=== PATIENT | female | born 1985 ===

== ENCOUNTER 2024-12-10 17:06 | Inpatient (IN) | payer MEDICAID, SELFPAY ==
--- NOTE | ~2024-12-10 | FL_ITS ---
EXAMINATION: FL GUIDANCE ONLY HISTORY: ERCP COMPARISON: Correlation is made with an MRCP dated 12/11/2024. TECHNIQUE: Fluoroscopy time: 49.5 seconds. Cumulative Dose: 21.430 mGy. DAP: 9.3218 mGym2 Images: 6. FINDINGS: Images demonstrate opacification of the common bile duct with a wire in place. No definite filling defects are identified on these images. The final film demonstrates contrast in the duodenum. FL/FL guidance in OR IMPRESSION: Fluoroscopy during procedure. Please see procedure report for additional information. Electronically signed by: Andre Dennis MD 12/15/2024 07:03 AM EDT
--- NOTE | ~2024-12-10 | XR_ITS ---
EXAMINATION: XR CHEST 1 VIEW HISTORY: low O2 sats post op COMPARISON: There are no prior studies available for comparison. FINDINGS: A single AP portable view of the chest performed at 12:29 PM is submitted. Lung volumes are markedly low. There are diffuse opacities in both lung zones which may be related to hypoventilation. Atelectasis or pneumonia is not excluded. There is no pneumothorax. The heart is normal in size in technique and degree of inspiration. The bones are intact. XR/XR chest 1V IMPRESSION: Extremely low lung volumes. Diffuse opacities in both lung zones may represent atelectasis or pneumonia. Evaluation is extremely limited. Electronically signed by: Andre Dennis MD 12/15/2024 12:49 PM EDT
--- NOTE | ~2024-12-10 | MR_ITS ---
CLINICAL HISTORY: elevated bilirubin MR abdomen without contrast MR MRCP without contrast Comparison: None available Findings: There are at least 3 calculi within the common bile duct. From proximal to distal these measure 5, 9 and 11 mm in size respectively. There is severe dilatation of the common bile duct which measures up to 17 mm. There is moderate dilatation of the intrahepatic biliary tree. There are numerous gallstones within the gallbladder and there are 2 stones within the cystic duct, the larger measuring 7 mm in size. There is borderline gallbladder wall thickening and mild edema of the mesentery adjacent to the gallbladder. There is edema of the mesentery adjacent to the pancreas. No associated fluid collection. Borderline dilatation of the pancreatic duct. Unremarkable liver, spleen and adrenal glands. Grossly unremarkable bowel. No suspicious bone lesion. Impression: 1. Acute cholecystitis. 2. Acute pancreatitis. 3. Choledocholithiasis. This document has been electronically signed by: Kayla Mckeon MD on 12/11/2024 16:50:21
--- NOTE | ~2024-12-10 | US_ITS ---
CLINICAL HISTORY: abd pain, elevated LFTs US abdomen limited Comparison: None provided Findings: The visualized pancreas is normal. The aorta and inferior vena cava are normal caliber. The liver is normal in size and echotexture. There is no intrahepatic bile duct dilatation. The common duct is 13 mm in diameter. There is a focal echogenic structure in the distal common duct, possible choledocholithiasis. There are multiple gallstones. The gallbladder is otherwise normal. There is no sonographic Barrett sign. The main portal vein is antegrade. The right kidney is 11.6 cm in length. No ascites. IMPRESSION: Cholelithiasis with extrahepatic biliary tract dilatation and possible choledocholithiasis. Appropriate follow-up recommended This document has been electronically signed by: William Vasquez MD on 12/10/2024 20:27:07
[2024-12-10 17:30] VITALS: BP 122/66; PULSE 109; RESP 18; TEMP 37.3; O2SAT 99; BMI 33.7
--- NOTE | 2024-12-10 17:32 | ED.ABDPAIN ---
HPI - Abdominal Pain General Chief Complaint: Abdominal Pain Stated Complaint: abd pain Time Seen by Provider: 12/10/24 19:47 Source: patient Mode of arrival: ambulatory Limitations: no limitations History of Present Illness ED Provider: Addie Farmer NP HPI narrative: Patient is a 39-year-old female who presents emergency department for evaluation. With the past 3 days she has been having pain to her epigastrium and right upper quadrant. Intermittent in nature. Three days ago she was experiencing vomiting but since then has only had nausea. Reports that today her pain is actually slightly improved from its onset but still is pretty significant. She denies associated fevers or chills. Denies history of prior gallbladder problems. Has no associated chest pain or shortness of breath. No lower abdominal pain constipation diarrhea genitourinary symptoms, pelvic pain or abnormal vaginal discharge/bleeding. LMP 11/19/2024, denies overt concern for . No use of contraception. Related Data Home Medications ?Medication ?Instructions ?Recorded ?Confirmed No Known Home Meds 12/10/24 12/10/24 Allergies Allergy/AdvReac Type Severity Reaction Status Date / Time No Known Allergies Allergy Verified 12/10/24 17:34 Review of Systems Review of Systems Yes all other systems are reviewed and are negative [facility] Past Medical History Attestation statement: The following information was validated with the patient. Source: old records reviewed Medical History Obesity Surgical History History of Social History Social History Patient Tobacco Use Status: Never used Tobacco Smoked in Last 30 Days: No Use of substances other than those prescribed or required for medical reasons: No Advance Directives: No Advance Directives Information Provided: No Do you have a plan to hurt others: No Plan Nutrition Risks: No Nutritional Risk Patient : Yes (HCT is 4, may be indicative of very early repeat hCG in the a.m.) Physical Exam ED Vital Signs: Vital Signs - 24 hr 12/10/24 17:30 12/10/24 20:00 Temperature 99.1 F 98.4 F Pulse Rate 109 H 60 Respiratory Rate 18 13 Blood Pressure 122/66 136/74 Pulse Oximetry 99 100 Oxygen Delivery Method Room Air Room Air BMI result Body Mass Index 33.7 Appearance: Alert.?Oriented to person, place and time. No acute distress.?Normal affect. Eyes: Pupils equal, round and reactive to light.? ENT: Pharynx normal.?? Neck: Normal inspection.? Neck supple.?? CVS: Heart sounds normal. Normal heart rate and rhythm.? Pulses normal.?? Respiratory: No respiratory distress.? Lung sounds clear to auscultation bilaterally?? Abdomen: Soft with right upper quadrant and epigastric tenderness upon palpation. Negative Barrett's sign.no CVAT. Normoactive bowel sounds. ? Skin: Skin warm and dry.? Normal skin color.? Extremities: No lower extremity edema.? Neuro: Moves all extremities spontaneously. Sensation intact bilaterally. Ambulates with normal steady gait. Course Course Course Narrative: This is an RME: Additional HPI, ROS, PE not included below will be deferred to primary provider. RME assessment and note performed by: Juliette Herrera PA-C This is a [id number]-female who presents to the ER with complaints of mid abdominal pain x 3 days. Reporting nausea, vomiting, dark urine and urgency. Abdomen is soft, nontender. Plan: Labs, UA, further ER eval Medical Decision Making Medical Decision Making MDM Narrative: Patient is a 39-year-old female with no reported past medical history who presents emergency department for evaluation of abdominal pain and nausea as per HPI. She had a workup obtained prior to my assumption of care, CBC is without leukocytosis, has a microcytic anemia that does not meet transfusion criteria, no prior available for comparison, no thrombocytopenia. No significant electrolyte derangement. No MINH. Has notable transaminitis with T bili 4.1 direct bili 3.1, AST/ALT 118/208 and lipase of 1088. Her hCG has resulted at 4, below criteria for estimated gestation of 3-4 weeks. I did discuss this with the patient in the potential for a very early . Urinalysis revealing microscopic hematuria no evidence of infection but she states that she is not currently having any menstrual bleeding. On examination she has tenderness of the right upper quadrant and epigastrium. Negative Barrett sign. Nontoxic in appearance afebrile no tachycardia no hypotension. Had ultrasound imaging of the abdomen obtained prior to my assumption of care revealing cholelithiasis with extrahepatic biliary dilation, mild intrahepatic ductal dilation possible choledocholithiasis. I did discuss this with General surgery Frank CELESTIN who advises consulting hospitalist for medicine admission. I spoke with hospitalist Dr. Barba, plan for admission Differential Diagnosis Differential Diagnoses: The differential diagnosis associated with the presentation includes (Gastritis, cholecystitis, cholelithiasis, choledocholithiasis, lower suspicion for acute cholangitis given absence of fever and jaundice, GERD, pyelonephritis, UTI) Admission/Observation Consideration of admission/observation: Escalation of care including admission/observation considered Consult Healthcare Provider Management of the patient was discussed with: Hospitalist (See narrative above) and Hand Packer/Packager (See narrative above) Lab Data MDM Lab Attestation statement: I reviewed the patient's lab results. (See narrative above) 12/10/24 17:46 12/10/24 17:46 Labs: Lab Results 12/10/24 Range/Units 17:46 WBC 9.1 (4.8-10.8) X10*3/uL RBC 3.86 L (4.20-5.50) X10*6/uL Hgb 8.3 L (12.0-16.0) g/dl Hct 27.6 L (37.0-47.0) % MCV 71.5 L (80.0-98.0) fL MCH 21.5 L (27.0-33.0) pg MCHC 30.1 L (31.0-35.0) g/dl RDW 18.2 H (11.0-16.0) % Plt Count 394 (160-400) X10*3/uL MPV 9.2 L (9.4-12.3) fL Immature Gran % (Auto) 0.3 (0.0-0.4) % Neut % (Auto) 77.3 H (45-73) % Lymph % (Auto) 12.5 L (20-40) % [place] % (Auto) 8.5 (2-11) % Eos % (Auto) 1.1 (0-4) % Baso % (Auto) 0.3 (0-2) % Lymph # (Auto) 1.1 L (1.2-4.9) X10*3/uL [place] # (Auto) 0.8 (0.1-1.2) X10*3/uL Eos # (Auto) 0.1 (0.0-0.4) X10*3/uL Baso # (Auto) 0.0 (0.0-0.2) X10*3/uL Abs Immat Gran (auto) 0.03 (0.00-0.03) X10*3/uL Absolute Neuts (auto) 7.0 (2.0-8.3) x10*3/uL Absolute Nucleated RBC 0.000 (0.0-0.012) X10*3/uL Nucleated RBC % (auto) 0.0 (0.0-0.2) /100WBC Sodium 137 (135-145) mmol/L Potassium 3.4 (3.3-5.1) mmol/L Chloride 108 (96-108) mmol/L Carbon Dioxide 21 L (22-29) mmol/L Anion Gap 11 L (12-20) BUN 7 L (9-16) mg/dL Creatinine 0.61 (0.5-1.4) mg/dL Estim Creat Clear Calc 127.5 Estimated GFR > 60 Random Glucose 79 (60-115) mg/dL Calcium 8.9 (8.4-10.2) mg/dL Magnesium 2.0 (1.6-2.6) mg/dL Iron 17 L (30-160) mcg/dL TIBC 336 (228-428) mcg/dL % Saturation 5 L (15-50) % Unsat Iron Binding 319 ug/dL Total Bilirubin 4.1 H (0.0-1.0) mg/dL Direct Bilirubin 3.1 H (0.0-0.5) mg/dL AST 118 H (5-31) U/L ALT 208 H (0-31) U/L Alkaline Phosphatase 271 H (39-117) U/L Total Protein 8.0 (6.5-8.0) g/dL Albumin 4.3 (3.5-5.0) g/dL Lipase 1088 H (8-78) U/L Beta HCG, Quant 4 mIU/mL Urine Color Dark Yellow Urine Appearance Clear Urine pH 5.5 (5.0-9.0) Ur Specific [place] 1.010 (1.005-1.025) Urine Protein Negative (Neg-Trace) mg/dL Urine Glucose (UA) Negative (Negative) mg/dL Urine Ketones 40 (Negative) mg/dL Urine Blood Small (1+) H (Negative) Urine Nitrite Negative (Negative) Ur Leukocyte Esterase Negative (Negative) Urine RBC 3-5 H (0-2) /HPF Urine WBC 0-5 (0-5) /HPF Ur Squamous Epith Cells 0-2 (0-2) /HPF Urine Bacteria None Seen (None Seen) Hyaline Casts 0-2 (0-2) /LPF Independent Interpretation I performed an independent interpretation of an: Ultrasound Radiology Impression Discussion of test interpretation with radiology: I have reviewed the radiologist's reading. Radiologist Impression: US abdomen limited Comparison: None provided Findings: The visualized pancreas is normal. The aorta and inferior vena cava are normal caliber. The liver is normal in size and echotexture. There is no intrahepatic bile duct dilatation. The common duct is 13 mm in diameter. There is a focal echogenic structure in the distal common duct, possible choledocholithiasis. There are multiple gallstones. The gallbladder is otherwise normal. There is no sonographic Barrett sign. The main portal vein is antegrade. The right kidney is 11.6 cm in length. No ascites. IMPRESSION: Cholelithiasis with extrahepatic biliary tract dilatation and possible choledocholithiasis. Appropriate follow-up recommended Medications Administered Generic Name Dose Route Start Last Admin Trade Name Freq PRN Reason Stop Dose Admin Hydromorphone HCl 0.5 mg 12/10/24 21:46 12/10/24 22:38 Hydromorphone Hcl 0.5 Mg/0.5 Ml Syringe IVPUSH 0.5 mg Q4H PRN Administration Pain, Moderate(Pain Scale 4-6) Protocol Piperacillin Sod/Tazobactam 100 mls @ 200 mls/hr 12/10/24 23:00 12/10/24 23:09 Sod 4.5 gm/ Sodium Chloride IV Infused Q6H JAY Infusion Dextrose/Sodium Chloride 1,000 mls @ 100 mls/hr 12/10/24 22:45 12/10/24 23:09 D5ns IVCONT 100 mls/hr .Q10H JAY Administration Ondansetron HCl 4 mg 12/10/24 22:09 12/10/24 22:38 Ondansetron Hcl 4 Mg/2 Ml Vial IVPUSH 4 mg Q6H PRN Administration Nausea and Vomiting Pantoprazole Sodium 40 mg 12/10/24 22:00 12/10/24 22:37 Pantoprazole Sodium 40 Mg/10 Ml Vial IVPUSH 40 mg BID@0630,1630 JAY Administration Sodium Chloride 3 ml 12/11/24 00:00 12/10/24 23:05 0.9 % Sodium Chloride Flush 3 Ml Syringe IVFLUSH Not Given QSHIFT [facility] Discharge Plan Discharge Clinical Impression: Transaminitis Cholelithiasis Qualifiers: Cholelithiasis location: bile duct Cholecystitis presence: without cholecystitis Biliary obstruction: with biliary obstruction Qualified Code(s): K80.51 - Calculus of bile duct without cholangitis or cholecystitis with obstruction Patient Disposition: Admitted As Inpatient
--- NOTE | 2024-12-10 17:35 | ECG_ITS ---
Test Reason : abd pain Blood Pressure : */* mmHG Vent. Rate : 73 BPM Atrial Rate : 73 BPM P-R Int : 144 ms QRS Dur : 76 ms QT Int : 362 ms P-R-T Axes : 44 18 26 degrees QTcB Int : 398 ms Normal sinus rhythm Normal ECG No previous ECGs available Referred By: Juliette Herrera Electronically Signed By: STEVEN GARCIA
[2024-12-10 17:57] LABS: MANUAL DIFF FLAG NO
[2024-12-10 18:00] LABS: Hematocrit 27.6 % (37.0-47.0); Hemoglobin 8.3 g/dl (12.0-16.0); Imm Gran Abs Auto 0.03 X10*3/uL (0.00-0.03); Imm Gran Pct Auto 0.3 % (0.0-0.4); Lymphocytes Absolute Auto 1.1 X10*3/uL (1.2-4.9); Mean Corpuscular HGB Conc 30.1 g/dl (31.0-35.0); Mean Corpuscular Hemoglobin 21.5 pg (27.0-33.0); Mean Corpuscular Volume 71.5 fL (80.0-98.0); NRBC Abs Auto 0.000 X10*3/uL (0.0-0.012); NRBC Pct Auto 0.0 /100WBC (0.0-0.2); Platelet Count 394 X10*3/uL (160-400); Red Blood Count 3.86 X10*6/uL (4.20-5.50); White Blood Count 9.1 X10*3/uL (4.8-10.8)
[2024-12-10 18:02] LABS: Appearance Urine Clear; Glucose Urine UA Negative (Negative); PH 5.5 (5.0-9.0); Specific Gravity - Urine 1.010 (1.005-1.025); UMIC TRIGGER UACC YES
[2024-12-10 18:22] LABS: Alanine Aminotransferase 208 U/L (0-31); Albumin Level 4.3 g/dL (3.5-5.0); Alkaline Phosphatase 271 U/L (39-117); Anion Gap 11 (12-20); Aspartate Amino Transferase 118 U/L (5-31); Blood Urea Nitrogen 7 mg/dL (9-16); Calcium 8.9 mg/dL (8.4-10.2); Carbon Dioxide 21 mmol/L (22-29); Chloride 108 mmol/L (96-108); Creatinine Clr Calc Pharmacy 127.5; Estimated Glomerular Filt Rate > 60; Magnesium 2.0 mg/dL (1.6-2.6); Potassium 3.4 mmol/L (3.3-5.1); Sodium 137 mmol/L (135-145); Total Protein 8.0 g/dL (6.5-8.0)
[2024-12-10 18:36] LABS: Lipase 1088 U/L (8-78)
[2024-12-10 20:00] VITALS: BP 136/74; PULSE 60; RESP 13; TEMP 36.9; O2SAT 100
--- NOTE | 2024-12-10 21:44 | PM.IMHP ---
History of Present Illness Date of Service: 12/10/24 Attending physician on admission: Nannette Barba Chief Complaint: abdominal pain Patient is a 39-year-old female Finnish speaking with past medical history only of G3, P3 X3 presents to the ED with complaints of upper Right and mid epigastric pain for the last 4 days. Pt has had nausea but no vomiting and denies Chest pain and SOB at rest or with exertion. Patient states she has had 2 prior attacks over the last month. Patient does not currently have a PCP. Patient denies history of tobacco use, marijuana use, illicit drug use and regular alcohol use. Patient only drinks alcohol occasionally. Workup initiated in the emergency department noted H&H of 8.3 and 27.6, no bandemia and no leukocytosis, non-anion gap metabolic acidosis, elevated T bili and direct bilirubin with transaminitis and elevated alk-phos of 271. Patient's lipase was 1088. Abdominal ultrasound indicated cholelithiasis with possible choledocholithiasis and multiple gallstones. No pancreatic involvement identified. ED provider reviewed case with General surgery and general surgery asked for medicine to admit. Patient is seen and examined for admission and patient is currently having 5 to 6/10 right upper quadrant and mid epigastric pain with mild nausea. Dilaudid ordered p.r.n. to help with pain. Zofran ordered to help with nausea. Patient's beta hCG was 4. Patient states her LMP was 11/19/2024. Patient normally has regular menstrual cycles. Patient is not taking any control and does not have an IUD or nexplanon in place. Patient has been sexually active since the end of her menstrual cycle. The potential for in its earliest stages is possible. Unable to order MRCP at this time due to possible 1st trimester . Will repeat hCG in the a.m.. If number continues to rise, should be suspected. No plans for surgical intervention overnight. Repeat labs in the a.m.. GI consultation also placed. Zosyn started. Patient will continue IV fluids with dextrose as BG 79 mg/dL. Dilaudid for pain and antiemetics ordered. UA negative for UTI. Stool for occult ordered noting how low patient's H&H is. Iron level is low at 7. Will wait for GI to assessment and patient may benefit from Venofer initially. Case management ordered to help patient find PCP. Review of Systems Review of Systems: Patient currently describing 5 to 6/10 right upper quadrant and mid epigastric pain with mild nausea. Patient denies any reflux. Patient denies any recent changes with her stools including blood in her stool. Patient denies any chest pain or shortness of breath at rest or with exertion. Patient denies any diarrhea or constipation issues. Yes all other systems are reviewed and are negative [facility] Medical History Obesity Cognitive capacity: Alert and orientated x3 Functional capacity: independent ambulation Patient : Yes (HCT is 4, may be indicative of very early repeat hCG in the a.m.) Surgical History History of Social History Smoked in Last 30 Days: No Use of substances other than those prescribed or required for medical reasons: No Advance Directives: No Advance Directives Information Provided: No Do you have a plan to hurt others: No Plan Patient : Yes (HCT is 4, may be indicative of very early repeat hCG in the a.m.) Ebola Risk: Travel/Contact With Anyone From Affected Area/s: No Has Patient Experienced Ebola Symptoms: No Meds Allergies Allergy/AdvReac Type Severity Reaction Status Date / Time No Known Allergies Allergy Verified 12/10/24 17:34 Home Medications ?Medication ?Instructions ?Recorded ?Confirmed ?Last Taken ?Type No Known Home Meds 12/10/24 12/10/24 Unknown History Physical Exam Vital Signs and Narrative: Vital Signs: Last Vital Signs Temp 98.4 F 12/10/24 20:00 Pulse 60 12/10/24 20:00 Resp 13 12/10/24 20:00 BP 136/74 12/10/24 20:00 Pulse Ox 100 12/10/24 20:00 O2 Del Method Room Air 12/10/24 20:00 BMI result Body Mass Index 33.7 Alert and orientated X3, able to give good history. Speaks chilean. Deferred cream tester. Neuro: CN II-X11 intact, no deficits, visual acuity intact EYES: PERRLA, EOM intact, sclerae nonicteric, conjunctiva pale ENT: hearing intact, no issues with swallowing, uvula midline, lips moist, nares patent no epistaxis Cardiac: S1 S2 RRR, no murmur, no JVD, no edema in Lower ext Pulmonary: lungs clear to auscultation B Abdominal: BS active in all 4 quadrants, no guarding, moderate tenderness right upper quadrant and midepigastric area, rebounding negative, abdomen soft MSK: strength 5/5 upper and lower extremities : no CVA tenderness no bladder distension Extremities: no edema in lower extremities, PT and DP pulses palpable +2 Psych: mood stable, judgement and insight good Skin: , intact no jaundice Results Labs 12/10/24 17:46 12/10/24 17:46 Labs: Laboratory Results - last 24 hr 12/10/24 17:46 MCV 71.5 L MCH 21.5 L MCHC 30.1 L RDW 18.2 H Plt Count 394 MPV 9.2 L Immature Gran % (Auto) 0.3 Neut % (Auto) 77.3 H Lymph % (Auto) 12.5 L [place] % (Auto) 8.5 Eos % (Auto) 1.1 Baso % (Auto) 0.3 Lymph # (Auto) 1.1 L [place] # (Auto) 0.8 Eos # (Auto) 0.1 Baso # (Auto) 0.0 Abs Immat Gran (auto) 0.03 Absolute Neuts (auto) 7.0 Absolute Nucleated RBC 0.000 Nucleated RBC % (auto) 0.0 Anion Gap 11 L Estim Creat Clear Calc 127.5 Estimated GFR > 60 Random Glucose 79 Calcium 8.9 Magnesium 2.0 Total Bilirubin 4.1 H Direct Bilirubin 3.1 H AST 118 H ALT 208 H Alkaline Phosphatase 271 H Total Protein 8.0 Albumin 4.3 Lipase 1088 H Beta HCG, Quant 4 Urine Color Dark Yellow Urine Appearance Clear Urine pH 5.5 Ur Specific [place] 1.010 Urine Protein Negative Urine Glucose (UA) Negative Urine Ketones 40 Urine Blood Small (1+) H Urine Nitrite Negative Ur Leukocyte Esterase Negative Urine RBC 3-5 H Urine WBC 0-5 Ur Squamous Epith Cells 0-2 Urine Bacteria None Seen Hyaline Casts 0-2 ECG Attestation: I personally reviewed and interpreted this ECG as follows: (Normal sinus rhythm, normal QTC) Prior ECG tracings: available for review Imaging Radiologist's Impressions: Ultrasound abdomen Findings: The visualized pancreas is normal. The aorta and inferior vena cava are normal caliber. The liver is normal in size and echotexture. There is no intrahepatic bile duct dilatation. The common duct is 13 mm in diameter. There is a focal echogenic structure in the distal common duct, possible choledocholithiasis. There are multiple gallstones. The gallbladder is otherwise normal. There is no sonographic Barrett sign. The main portal vein is antegrade. The right kidney is 11.6 cm in length. No ascites. IMPRESSION: Cholelithiasis with extrahepatic biliary tract dilatation and possible choledocholithiasis. Appropriate follow-up recommended Assessment and Plan (1) Cholelithiasis: Qualifiers: Biliary obstruction: with biliary obstruction Cholecystitis presence: without cholecystitis Cholelithiasis location: bile duct Qualified Code(s): K80.51 - Calculus of bile duct without cholangitis or cholecystitis with obstruction Status: Acute Plan Patient is a 39-year-old female Finnish speaking with past medical history only of G3, P3 X3 is being admitted for cholelithiasis with suspicion for choledocholithiasis, general surgery asked that Medicine admit this patient. It is possible that patient is in the very early stages of based on patient's current hCG of 4. Patient denies history of smoking, marijuana use, illicit drug use and only drinks alcohol on rare occasion. Cholelithiasis with possible choledocholithias/ transaminitis, elevated TBILI and DBILI -General surgery consulted, asked for medicine to admit -GI consulted -Unable to order MRCP as there is suspicion for very early , repeating hCG in the a.m. -IV fluids continue and dextrose added, lipase is elevated, pancreas stable on ultrasound, glucose 79 -Dilaudid IV p.r.n. for pain -NPO -Repeat labs in the a.m., Lipiud panel added -Patient is started on Zosyn 4.5 G Q6H -Patient does not meet the criteria for sepsis at this time -Lactate 0.9, no leukocytosis, low-grade temp of 99 degrees on arrival now 98.6 -Blood cultures were not ordered in the ED and antibiotics were already started -UA negative for UTI Non-anion gap metabolic acidosis -IV fluids continue -No indication for bicarb at this time -Monitor labs Anemia -H&H low on admission, 8.3 and 27.6, iron also low at 7, may need to consider IV Venofer -Repeat CBC in the a.m., type and screen added in case needed -Hemodynamics stable -Stool for occult ordered -PPI ordered Beta HCG 4 -It is possible patient may be in the very early stages of -Repeat hCG in the a.m., if number continues to rise consider patient is -Unable to order MRCP at this time No primary care provider -Case management requested to review this with patient to find a PCP in the local area DVT prophylaxis: Held in case patient requires surgical intervention in the next 24 hours, review in the a.m. PPI prophylaxis: Protonix ordered No med rec indicated as patient does not currently take any prescription meds or [id number] meds including vitamins or homeopathics Full code status Quality Stroke Does the patient have a stroke diagnosis?: No Reason for No Anti-thrombotic by Day Two: Contraindicated VTE Prior VTE?: No VTE Risk Level:: Medical - moderate - high VTE Device Contraindication: N/A - Device Ordered VTE Drug Contraindication: N/A - Med Ordered
[2024-12-10 22:12] VITALS: BP 138/63; PULSE 70; RESP 16; TEMP 37; O2SAT 100
[2024-12-10 22:13] LABS: Iron 17 mcg/dL (30-160); Percent Iron Saturation 5 % (15-50); Total Iron Binding Capacity 336 mcg/dL (228-428); Unsaturated Iron Binding 319 ug/dL
--- NOTE | 2024-12-10 22:32 | PHA.MEDREC ---
Pharmacy Consult ? Medication Reconciliation Pharmacy has completed the medication reconciliation.
[2024-12-11 00:32] VITALS: BP 98/55; PULSE 76; RESP 17; TEMP 36.7; O2SAT 96
[2024-12-11 05:41] VITALS: BP 117/66; PULSE 62; RESP 17; TEMP 36.8; O2SAT 98
--- NOTE | 2024-12-11 05:51 | PM.CNGS ---
History of Present Illness Consult details Consult date: 12/11/24 Requesting physician: Ale Wilkinson Narrative: 39 year old female with no significant PMH who presented to the ED for evaluation for abdominal pain. She reports epigastic/RUQ pain that began 3 days ago. It was intermittent in nature but became more constant and was associated with nausea without vomiting. She endorses yellowing of her eyes, and dark urine. Her skin has been itchy. She reports a similar episode of pain two months ago that resolved on its own after an hour. Due to the severity of pain, she presented to the ED. Work up in the ED included CBC, BMP, LFTs which were significant for total/direct bilirubin of 4.1/3.1, AST/ALT 118/208, lipase 1088. No leukocytosis. HCG 4. LMP 11/19/24. ABD US showed gallstones without gallbladder wall thickening or pericholecystic fluid, and dilated intra and extrahepatic ducts with CBD measuring 13 mm in diameter with a focal echogenic structure in the distal common duct. She reports feeling improved this morning and denies any abd pain. She denies fevers, chills, diarrhea. She has a history of 3 C sections and denies any other abdominal surgery. Review of Systems Constitutional: Constitutional: Denies chills and Denies fever(s) ENT: Denies dizziness Cardiovascular: Cardiovascular: Denies chest pain and Denies dyspnea Respiratory: Respiratory: Denies dyspnea Gastrointestinal: Gastrointestinal: Reports as per HPI Genitourinary: Genitourinary: Denies hematuria and Denies dysuria Integumentary/Breasts: Skin/Breast: Reports as per HPI Neurologic: Denies dizziness [facility] Past Medical History Medical History Obesity Surgical History Surgical History History of Social History Social History Patient Tobacco Use Status: Never used Tobacco Travel History Ebola Risk: Travel/Contact With Anyone From Affected Area/s: No Has Patient Experienced Ebola Symptoms: No Meds Allergies Allergy/AdvReac Type Severity Reaction Status Date / Time No Known Allergies Allergy Verified 12/10/24 17:34 Active Medications: Current Medications Acetaminophen (Acetaminophen 325 Mg Tablet) 650 mg PO Q6H PRN PRN Reason: Pain, Mild 1-3,fever,headache Albuterol/Ipratropium (Albuterol/Iprat 2.5/0.5mg 3 Ml Ampul.Neb) 3 ml INHALE Q4H PRN PRN Reason: Shortness of Breath/Wheezing Calcium Carbonate (Calcium Carbonate 750 Mg Tab.Chew) 750 mg PO Q4H PRN PRN Reason: Heartburn Hydromorphone HCl (Hydromorphone Hcl 0.5 Mg/0.5 Ml Syringe) 0.5 mg IVPUSH Q4H PRN; Protocol PRN Reason: Pain, Moderate(Pain Scale 4-6) Last Admin: 12/10/24 22:38 Dose: 0.5 mg Hydromorphone HCl (Hydromorphone Hcl 1 Mg/Ml Syringe) 1 mg IVPUSH Q4H PRN; Protocol PRN Reason: Pain, Severe (Pain Scale 7-10) Piperacillin Sod/Tazobactam (Sod 4.5 gm/ Sodium Chloride) 100 mls @ 200 mls/hr IV Q6H [facility] Last Admin: 12/11/24 05:49 Dose: 200 mls/hr Dextrose/Sodium Chloride (D5ns) 1,000 mls @ 100 mls/hr IVCONT .Q10H [facility] Last Infusion: 12/11/24 05:49 Dose: 0 mls/hr Magnesium Hydroxide (Milk Of Magnesia 30 Ml Oral.Susp) 30 ml PO DAILY PRN PRN Reason: Constipation Melatonin (Melatonin 3 Mg Tablet) 6 mg PO BEDTIME PRN PRN Reason: Insomnia Ondansetron HCl (Ondansetron Hcl 4 Mg/2 Ml Vial) 4 mg IVPUSH Q6H PRN PRN Reason: Nausea and Vomiting Last Admin: 12/10/24 22:38 Dose: 4 mg Pantoprazole Sodium (Pantoprazole Sodium 40 Mg/10 Ml Vial) 40 mg IVPUSH BID@0630,1630 [facility] Last Admin: 12/11/24 05:51 Dose: 40 mg Senna (Sennosides 8.6 Mg Tablet) 17.2 mg PO BEDTIME [facility] Sodium Chloride (0.9 % Sodium Chloride Flush 3 Ml Syringe) 3 ml IVFLUSH QSHIFT [facility] Last Admin: 12/10/24 23:05 Dose: Not Given Home Medications ?Medication ?Instructions ?Recorded ?Confirmed ?Last Taken ?Type No Known Home Meds 12/10/24 12/10/24 Unknown History Physical Exam Vital Signs: Vital Signs: Last Vital Signs Temp 98.2 F 12/11/24 05:41 Pulse 62 12/11/24 05:41 Resp 17 12/11/24 05:41 BP 117/66 12/11/24 05:41 Pulse Ox 98 12/11/24 05:41 O2 Del Method Room Air 12/11/24 05:41 BMI result Body Mass Index 33.7 Const: Other: tearful on exam General: comfortable, no acute distress and alert Orientation/consciousness: patient oriented x3 Eyes: Sclerae: scleral abnormal (icteric ) Resp: Effort & Inspection: normal respiratory effort GI: Inspection: No distended Palpation (GI): Soft to palpation, Tenderness to palpation present (GI) (mild epigastric and RUQ) Barrett's sign negative, no guarding and not rigid Percussion: Yes normal to percussion Skin: Other: warm and dry Neuro: General: patient oriented x3 and moves all extremities Results Labs 12/11/24 05:32 12/11/24 05:32 Labs: Abnormal lab results 12/10/24 Range/Units 17:46 RBC 3.86 L (4.20-5.50) X10*6/uL Hgb 8.3 L (12.0-16.0) g/dl Hct 27.6 L (37.0-47.0) % MCV 71.5 L (80.0-98.0) fL MCH 21.5 L (27.0-33.0) pg MCHC 30.1 L (31.0-35.0) g/dl RDW 18.2 H (11.0-16.0) % MPV 9.2 L (9.4-12.3) fL Neut % (Auto) 77.3 H (45-73) % Lymph % (Auto) 12.5 L (20-40) % Lymph # (Auto) 1.1 L (1.2-4.9) X10*3/uL Carbon Dioxide 21 L (22-29) mmol/L Anion Gap 11 L (12-20) BUN 7 L (9-16) mg/dL Iron 17 L (30-160) mcg/dL % Saturation 5 L (15-50) % Total Bilirubin 4.1 H (0.0-1.0) mg/dL Direct Bilirubin 3.1 H (0.0-0.5) mg/dL AST 118 H (5-31) U/L ALT 208 H (0-31) U/L Alkaline Phosphatase 271 H (39-117) U/L Lipase 1088 H (8-78) U/L Urine Blood Small (1+) H (Negative) Urine RBC 3-5 H (0-2) /HPF Short CBC 12/10/24 Range/Units 17:46 WBC 9.1 (4.8-10.8) X10*3/uL Hgb 8.3 L (12.0-16.0) g/dl Hct 27.6 L (37.0-47.0) % Plt Count 394 (160-400) X10*3/uL BMP 12/10/24 17:46 Sodium 137 Potassium 3.4 Chloride 108 Carbon Dioxide 21 L BUN 7 L Creatinine 0.61 Calcium 8.9 Liver Function 12/10/24 Range/Units 17:46 Total Bilirubin 4.1 H (0.0-1.0) mg/dL Direct Bilirubin 3.1 H (0.0-0.5) mg/dL AST 118 H (5-31) U/L ALT 208 H (0-31) U/L Alkaline Phosphatase 271 H (39-117) U/L Albumin 4.3 (3.5-5.0) g/dL Urine 12/10/24 Range/Units 17:46 Urine Color Dark Yellow Urine Appearance Clear Urine pH 5.5 (5.0-9.0) Ur Specific [place] 1.010 (1.005-1.025) Urine Protein Negative (Neg-Trace) mg/dL Urine Glucose (UA) Negative (Negative) mg/dL All other labs normal. Imaging Abdominal ultrasound report/results: report reviewed and image reviewed Assessment and Plan (1) Gallstone pancreatitis: Status: Acute Plan 39 year old female with 3 days of epigastric/RUQ pain and tenderness found to have hyperbilirubinemia, elevated lipase and ABD US showing gallstones, dilated CBD with focal echogenic structure in the distal CBD suggestive of gallstone pancreatitis and choledocolithiasis. She was admitted to the medicine service. Await AM labs and GI recommendations regarding further work up and treatment of CBD stone. AM HCG and LFTs pending. There is no evidence of acute cholecystitis and no urgency for cholecystectomy in this patient during , especially in her first trimester. If HCG downtrends, can discuss proceeding with laparoscopic cholecystectomy, possible open during this stay to prevent recurrence following work up/treatment of CBD stone. Will continue to follow. Repeat LFTs virtually unchanged. Discussed with GI (Dr. Obrien) who recommends MRCP with ERCP likely on Saturday if positive for CBD stone. Can have clear liquids. Procedures Date of Service Date of Service: 12/11/24
[2024-12-11 06:07] LABS: MANUAL DIFF FLAG NO
[2024-12-11 06:18] LABS: Hematocrit 27.7 % (37.0-47.0); Hemoglobin 8.1 g/dl (12.0-16.0); Imm Gran Abs Auto 0.03 X10*3/uL (0.00-0.03); Imm Gran Pct Auto 0.5 % (0.0-0.4); Lymphocytes Absolute Auto 1.1 X10*3/uL (1.2-4.9); Mean Corpuscular HGB Conc 29.2 g/dl (31.0-35.0); Mean Corpuscular Hemoglobin 21.1 pg (27.0-33.0); Mean Corpuscular Volume 72.3 fL (80.0-98.0); NRBC Abs Auto 0.000 X10*3/uL (0.0-0.012); NRBC Pct Auto 0.0 /100WBC (0.0-0.2); Platelet Count 382 X10*3/uL (160-400); Red Blood Count 3.83 X10*6/uL (4.20-5.50); White Blood Count 6.6 X10*3/uL (4.8-10.8)
[2024-12-11 06:51] LABS: Cholesterol 142 mg/dL (<200); HDL Cholesterol 52 mg/dL (>40); Triglycerides 55 mg/dL (<150)
[2024-12-11 07:31] VITALS: BP 112/61; PULSE 67; RESP 17; TEMP 36.9; O2SAT 99
--- NOTE | 2024-12-11 07:34 | PC.NURSE ---
Patient is a 39 year old female with no significant PMH who presented to the ED for evaluation for abdominal pain. She reports epigastic/RUQ pain that began 3 days ago. It is intermittent in nature and associated with nausea and vomiting. ABD US showed gallstones without gallbladder wall thickening or pericholecystic fluid, and dilated intra and extrahepatic ducts with CBD measuring 13 mm in diameter with a focal echogenic structure in the distal common duct. Patient alert and oriented. cardiac monitor maintained and NSR noted. Lungs clear bilat. Respirations even and non-labored. Abdomen soft, with positive bowel sounds. Denies abd pain at this time. Positive pedal pulses with no edema.
[2024-12-11 08:32] LABS: Alanine Aminotransferase 186 U/L (0-31); Albumin Level 3.9 g/dL (3.5-5.0); Alkaline Phosphatase 237 U/L (39-117); Anion Gap 13 (12-20); Aspartate Amino Transferase 110 U/L (5-31); Blood Urea Nitrogen 6 mg/dL (9-16); Calcium 8.6 mg/dL (8.4-10.2); Carbon Dioxide 22 mmol/L (22-29); Chloride 107 mmol/L (96-108); Creatinine Clr Calc Pharmacy 149.6; Estimated Glomerular Filt Rate > 60; Potassium 3.6 mmol/L (3.3-5.1); Sodium 138 mmol/L (135-145); Total Protein 7.2 g/dL (6.5-8.0)
[2024-12-11 08:36] LABS: Lipase 578 U/L (8-78)
[2024-12-11 08:57] VITALS: BP 122/63; PULSE 54; RESP 17; TEMP 36.6; O2SAT 100; BMI 33.7
--- NOTE | 2024-12-11 09:45 | PM.GICN ---
History of Present Illness Data of Consult Service Date: 12/11/24 Primary Care Provider: None Physician HPI 39 year old female with hx of iron def anemia who I am seeing for evaluation of abdominal pain She had noted 3 d hx of epigastric pain going into the back, initially intermittent then more constant with nausea . Pain got worse 10/10 so came to the ED. She noted jaundice and skin itching. She had similar type of pain few months ago which resolved itself. She is feeling improved this morning and feels hungry and would like to eat. Denies any abd pain now. She denies fevers, chills, diarrhea LABS: Total/direct bilirubin of 4.1/3.1, AST/ALT 118/208, lipase 1088. No leukocytosis. IMAGING: ABD US: gallstones without gallbladder wall thickening or pericholecystic fluid, and dilated intra and extrahepatic ducts with CBD measuring 13 mm in diameter with a focal echogenic structure in the distal common duct. Review of Systems Review of Systems: Constitutional : No Weight loss, No Fever, No Chills ENT/Mouth : No sore throat, No Rhinorrhea Eyes: No Swelling, No Redness Cardiovascular : No Chest Pain, No SOB, No Edema Respiratory : No Cough, No Sputum, No Wheezing Gastrointestinal : see HPI Genitourinary : NO Dysuria, No Urinary Frequency, No Hematuria, No Urgency Musculoskeletal : no joint pain, No Myalgias, No Joint Swelling Skin : No Skin Lesions, No rash Neuro : No Weakness, No Numbness, No Dizziness, No Headache Psych : No Anxiety/Panic, No Depression Heme/Lymph: No Bruising, No Lymphadenopathy Endocrine : No Polyuria, No Polydipsia All other systems reviewed and are negative. [facility] Past Medical History Medical History Obesity Family History Pertinent family history: no Fh of pancreas or biliary problems Surgical History Surgical History History of Social History Social History Patient Tobacco Use Status: Never used Tobacco Travel History Ebola Risk: Travel/Contact With Anyone From Affected Area/s: No Has Patient Experienced Ebola Symptoms: No Meds Allergies Allergy/AdvReac Type Severity Reaction Status Date / Time No Known Allergies Allergy Verified 12/10/24 17:34 Active Medications: Current Medications Acetaminophen (Acetaminophen 325 Mg Tablet) 650 mg PO Q6H PRN PRN Reason: Pain, Mild 1-3,fever,headache Albuterol/Ipratropium (Albuterol/Iprat 2.5/0.5mg 3 Ml Ampul.Neb) 3 ml INHALE Q4H PRN PRN Reason: Shortness of Breath/Wheezing Calcium Carbonate (Calcium Carbonate 750 Mg Tab.Chew) 750 mg PO Q4H PRN PRN Reason: Heartburn Hydromorphone HCl (Hydromorphone Hcl 0.5 Mg/0.5 Ml Syringe) 0.5 mg IVPUSH Q4H PRN; Protocol PRN Reason: Pain, Moderate(Pain Scale 4-6) Last Admin: 12/10/24 22:38 Dose: 0.5 mg Hydromorphone HCl (Hydromorphone Hcl 1 Mg/Ml Syringe) 1 mg IVPUSH Q4H PRN; Protocol PRN Reason: Pain, Severe (Pain Scale 7-10) Piperacillin Sod/Tazobactam (Sod 4.5 gm/ Sodium Chloride) 100 mls @ 200 mls/hr IV Q6H [facility] Last Infusion: 12/11/24 06:19 Dose: Infused Dextrose/Sodium Chloride (D5ns) 1,000 mls @ 100 mls/hr IVCONT .Q10H [facility] Last Admin: 12/11/24 08:26 Dose: 100 mls/hr Magnesium Hydroxide (Milk Of Magnesia 30 Ml Oral.Susp) 30 ml PO DAILY PRN PRN Reason: Constipation Melatonin (Melatonin 3 Mg Tablet) 6 mg PO BEDTIME PRN PRN Reason: Insomnia Ondansetron HCl (Ondansetron Hcl 4 Mg/2 Ml Vial) 4 mg IVPUSH Q6H PRN PRN Reason: Nausea and Vomiting Last Admin: 12/10/24 22:38 Dose: 4 mg Pantoprazole Sodium (Pantoprazole Sodium 40 Mg/10 Ml Vial) 40 mg IVPUSH BID@0630,1630 [facility] Last Admin: 12/11/24 05:51 Dose: 40 mg Senna (Sennosides 8.6 Mg Tablet) 17.2 mg PO BEDTIME [facility] Sodium Chloride (0.9 % Sodium Chloride Flush 3 Ml Syringe) 3 ml IVFLUSH QSHIFT [facility] Last Admin: 12/11/24 07:49 Dose: Not Given Home Medications ?Medication ?Instructions ?Recorded ?Confirmed ?Last Taken ?Type No Known Home Meds 12/10/24 12/10/24 Unknown History Physical Exam Vital Signs: Vital Signs: Last Vital Signs Temp 97.9 F 12/11/24 08:57 Pulse 54 12/11/24 08:57 Resp 17 12/11/24 08:57 BP 122/63 12/11/24 08:57 Pulse Ox 100 12/11/24 08:57 O2 Del Method Room Air 12/11/24 08:57 BMI result Body Mass Index 33.7 EXAM: GENERAL: The patient is well developed and nontoxic. VITAL SIGNS:see workflow HEENT: mild icteric sclerae, PERRLA, EOMI. Oropharynx clear. Moist mucous membranes. Conjunctivae appear well perfused. No thyroid mass. CHEST: Chest wall is nontender. HEART: Regular rate and rhythm without murmurs. LUNGS: Clear to auscultation bilaterally. ABDOMEN: Soft, positive bowel sounds, nontender, no organomegaly.no flank tenderness SKIN: No rash, no excessive bruising, petechiae, or purpura. NEUROLOGIC: Cranial nerves II-XII intact without motor/sensory deficit. Psych: normal affect Results Labs 12/11/24 05:32 12/11/24 05:32 Labs: Short CBC 12/10/24 12/11/24 Range/Units 17:46 05:32 WBC 9.1 6.6 (4.8-10.8) X10*3/uL Hgb 8.3 L 8.1 L (12.0-16.0) g/dl Hct 27.6 L 27.7 L (37.0-47.0) % Plt Count 394 382 (160-400) X10*3/uL BMP 12/10/24 12/11/24 17:46 05:32 Sodium 137 138 Potassium 3.4 3.6 Chloride 108 107 Carbon Dioxide 21 L 22 BUN 7 L 6 L Creatinine 0.61 0.52 Calcium 8.9 8.6 Liver Function 12/10/24 12/11/24 Range/Units 17:46 05:32 Total Bilirubin 4.1 H 4.0 H (0.0-1.0) mg/dL Direct Bilirubin 3.1 H (0.0-0.5) mg/dL AST 118 H 110 H (5-31) U/L ALT 208 H 186 H (0-31) U/L Alkaline Phosphatase 271 H 237 H (39-117) U/L Albumin 4.3 3.9 (3.5-5.0) g/dL Urine 12/10/24 Range/Units 17:46 Urine Color Dark Yellow Urine Appearance Clear Urine pH 5.5 (5.0-9.0) Ur Specific [place] 1.010 (1.005-1.025) Urine Protein Negative (Neg-Trace) mg/dL Urine Glucose (UA) Negative (Negative) mg/dL Assessment and Plan (1) Gallstone pancreatitis: Status: Acute Plan 1/ Gallstone pancreatitis, clinically she seems much improved and pain free, LFT stable. May have passed the stone. PLAN: /1 - MRCP 2/ allow clears and advance diet if tolerated 3/ if MRI pos then ERCP on Saturday Procedures Date of Service Date of Service: 12/11/24
[2024-12-11 11:39] LABS: OBS Int Ctl Valid YES; OBS1 NEGATIVE (NEGATIVE)
[2024-12-11 15:55] VITALS: BP 112/56; PULSE 68; RESP 18; TEMP 36.9; O2SAT 97
--- NOTE | 2024-12-11 16:00 | HO.PM.IMPN ---
Subjective Subjective Date of Service: 12/11/24 Interval History: Choledocholithiasis Review of Systems Abdominal pain epigastric area Mild nausea Physical Exam Vital Signs: Vital Signs: Last Vital Signs Temp 98.5 F 12/11/24 15:55 Pulse 68 12/11/24 15:55 Resp 18 12/11/24 15:55 BP 112/56 L 12/11/24 15:55 Pulse Ox 97 12/11/24 15:55 O2 Del Method Room Air 12/11/24 15:55 BMI result Body Mass Index 33.7 Appearance: Alert.? Oriented X3.? cvs: rrr, [id number] . res: clear to auscultation ,no rhonchii or wheezing abd:soft, abd pain epigastric area, bs present. ext pulses present , no cyanosis . neuro: axo3 , nonfocal. Objective Data Active Medications Acetaminophen (Acetaminophen 325 Mg Tablet) 650 mg PO Q6H PRN PRN Reason: Pain, Mild 1-3,fever,headache Albuterol/Ipratropium (Albuterol/Iprat 2.5/0.5mg 3 Ml Ampul.Neb) 3 ml INHALE Q4H PRN PRN Reason: Shortness of Breath/Wheezing Calcium Carbonate (Calcium Carbonate 750 Mg Tab.Chew) 750 mg PO Q4H PRN PRN Reason: Heartburn Hydromorphone HCl (Hydromorphone Hcl 0.5 Mg/0.5 Ml Syringe) 0.5 mg IVPUSH Q4H PRN; Protocol PRN Reason: Pain, Moderate(Pain Scale 4-6) Last Admin: 12/10/24 22:38 Dose: 0.5 mg Documented By: VIVIANA Hydromorphone HCl (Hydromorphone Hcl 1 Mg/Ml Syringe) 1 mg IVPUSH Q4H PRN; Protocol PRN Reason: Pain, Severe (Pain Scale 7-10) Piperacillin Sod/Tazobactam (Sod 4.5 gm/ Sodium Chloride) 100 mls @ 200 mls/hr IV Q6H [facility] Last Infusion: 12/11/24 11:32 Dose: Infused Documented By: ABDULLAHI Dextrose/Sodium Chloride (D5ns) 1,000 mls @ 100 mls/hr IVCONT .Q10H [facility] Last Admin: 12/11/24 08:26 Dose: 100 mls/hr Documented By: DENISE Magnesium Hydroxide (Milk Of Magnesia 30 Ml Oral.Susp) 30 ml PO DAILY PRN PRN Reason: Constipation Melatonin (Melatonin 3 Mg Tablet) 6 mg PO BEDTIME PRN PRN Reason: Insomnia Ondansetron HCl (Ondansetron Hcl 4 Mg/2 Ml Vial) 4 mg IVPUSH Q6H PRN PRN Reason: Nausea and Vomiting Last Admin: 12/11/24 12:01 Dose: 4 mg Documented By: ABDULLAHI Pantoprazole Sodium (Pantoprazole Sodium 40 Mg/10 Ml Vial) 40 mg IVPUSH BID@0630,1630 [facility] Last Admin: 12/11/24 05:51 Dose: 40 mg Documented By: VIVIANA Senna (Sennosides 8.6 Mg Tablet) 17.2 mg PO BEDTIME [facility] Sodium Chloride (0.9 % Sodium Chloride Flush 3 Ml Syringe) 3 ml IVFLUSH QSHIFT [facility] Last Admin: 12/11/24 07:49 Dose: Not Given Documented By: DENISE Non-Admin Reason: IV Running Labs 12/11/24 05:32 12/11/24 05:32 Labs: Laboratory Results - last 24 hr 12/10/24 12/10/24 12/10/24 17:46 22:11 23:30 MCV 71.5 L MCH 21.5 L MCHC 30.1 L RDW 18.2 H Plt Count 394 MPV 9.2 L Immature Gran % (Auto) 0.3 Neut % (Auto) 77.3 H Lymph % (Auto) 12.5 L [place] % (Auto) 8.5 Eos % (Auto) 1.1 Baso % (Auto) 0.3 Lymph # (Auto) 1.1 L [place] # (Auto) 0.8 Eos # (Auto) 0.1 Baso # (Auto) 0.0 Abs Immat Gran (auto) 0.03 Absolute Neuts (auto) 7.0 Absolute Nucleated RBC 0.000 Nucleated RBC % (auto) 0.0 Anion Gap 11 L Estim Creat Clear Calc 127.5 Estimated GFR > 60 Random Glucose 79 Lactic Acid 0.9 Calcium 8.9 Magnesium 2.0 Iron 17 L TIBC 336 % Saturation 5 L Unsat Iron Binding 319 Total Bilirubin 4.1 H Direct Bilirubin 3.1 H AST 118 H ALT 208 H Alkaline Phosphatase 271 H Total Protein 8.0 Albumin 4.3 Triglycerides Cholesterol LDL Cholesterol, Calc HDL Cholesterol Lipase 1088 H TSH Beta HCG, Quant 4 Urine Color Dark Yellow Urine Appearance Clear Urine pH 5.5 Ur Specific [place] 1.010 Urine Protein Negative Urine Glucose (UA) Negative Urine Ketones 40 Urine Blood Small (1+) H Urine Nitrite Negative Ur Leukocyte Esterase Negative Urine RBC 3-5 H Urine WBC 0-5 Ur Squamous Epith Cells 0-2 Urine Bacteria None Seen Hyaline Casts 0-2 Stool Occult Blood Blood Type O Positive Antibody Screen NEGATIVE 12/11/24 12/11/24 05:32 11:00 MCV 72.3 L MCH 21.1 L MCHC 29.2 L RDW 18.3 H Plt Count 382 MPV 9.9 Immature Gran % (Auto) 0.5 H Neut % (Auto) 70.4 Lymph % (Auto) 16.2 L [place] % (Auto) 10.5 Eos % (Auto) 2.1 Baso % (Auto) 0.3 Lymph # (Auto) 1.1 L [place] # (Auto) 0.7 Eos # (Auto) 0.1 Baso # (Auto) 0.0 Abs Immat Gran (auto) 0.03 Absolute Neuts (auto) 4.6 Absolute Nucleated RBC 0.000 Nucleated RBC % (auto) 0.0 Anion Gap 13 Estim Creat Clear Calc 149.6 Estimated GFR > 60 Random Glucose 101 Lactic Acid Calcium 8.6 Magnesium Iron TIBC % Saturation Unsat Iron Binding Total Bilirubin 4.0 H Direct Bilirubin AST 110 H ALT 186 H Alkaline Phosphatase 237 H Total Protein 7.2 Albumin 3.9 Triglycerides 55 Cholesterol 142 LDL Cholesterol, Calc 79 HDL Cholesterol 52 Lipase 578 H TSH 0.52 Beta HCG, Quant 3 Urine Color Urine Appearance Urine pH Ur Specific [place] Urine Protein Urine Glucose (UA) Urine Ketones Urine Blood Urine Nitrite Ur Leukocyte Esterase Urine RBC Urine WBC Ur Squamous Epith Cells Urine Bacteria Hyaline Casts Stool Occult Blood NEGATIVE Blood Type Antibody Screen Assessment and Plan (1) Cholelithiasis: Status: Acute (2) Transaminitis: Status: Acute Assessment and Plan: 39-year-old female [place] speaking with past medical history only of G3, P3 X3 is being admitted for cholelithiasis with suspicion for choledocholithiasis, general surgery asked that Medicine admit this patient. It is possible that patient is in the very early stages of based on patient's current hCG of 4. Patient denies history of smoking, marijuana use, illicit drug use and only drinks alcohol on rare occasion. Cholelithiasis with possible choledocholithias/ transaminitis, elevated TBILI and DBILI abd pain somewhat improving plan:npo mrcp lft improving IV fluids,Dilaudid IV p.r.n. for pain NPO,on Zosyn 4.5 G Q6H gi and surgery following Non-anion gap metabolic acidosis improved with hydration Anemia -H&H low on admission, 8.3 and 27.6, iron also low at 7, may need to consider IV Venofer Monitor CBC closely Beta HCG 4 -now trending down 3. Patient not aware if she is d/w physician industrial : probably related to elevated LH in menopause recomended to Repeat in 2 days DVT prophylaxis: scd,ambulation PPI prophylaxis: Protonix ordered No med rec indicated as patient does not currently take any prescription meds or [id number] meds including vitamins or homeopathics Full code status Quality Stroke Does the patient have a stroke diagnosis?: No Reason for No Anti-thrombotic by Day Two: Contraindicated VTE Prior VTE?: No VTE Risk Level:: Medical - moderate - high VTE Device Contraindication: N/A - Device Ordered VTE Drug Contraindication: Treatment Not Indicated
--- NOTE | 2024-12-11 16:22 | MHC.CM.PN ---
CM ATTEMPTED TO MEET WITH PT WHO WAS OFF UNIT
[2024-12-11] MEDS: 0.9 % Sodium Chloride Flush 3 ML SYRINGE IVFLUSH (16:48)
[2024-12-11 19:14] VITALS: BP 120/60; PULSE 57; RESP 16; TEMP 36.4; O2SAT 95
[2024-12-12 03:26] VITALS: BP 115/68; PULSE 61; RESP 16; TEMP 36.6; O2SAT 97
[2024-12-12 08:30] VITALS: BP 99/57; PULSE 58; RESP 18; TEMP 36.4; O2SAT 99
[2024-12-12 08:59] LABS: Alanine Aminotransferase 196 U/L (0-31); Albumin Level 3.4 g/dL (3.5-5.0); Alkaline Phosphatase 236 U/L (39-117); Anion Gap 10 (12-20); Aspartate Amino Transferase 147 U/L (5-31); Blood Urea Nitrogen 6 mg/dL (9-16); Calcium 8.1 mg/dL (8.4-10.2); Carbon Dioxide 23 mmol/L (22-29); Chloride 108 mmol/L (96-108); Creatinine Clr Calc Pharmacy 155.6; Estimated Glomerular Filt Rate > 60; Potassium 3.5 mmol/L (3.3-5.1); Sodium 137 mmol/L (135-145); Total Protein 6.6 g/dL (6.5-8.0)
--- NOTE | 2024-12-12 09:50 | MHC.CM.PN ---
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 Patient lives in a home w/ S.O. and 3 children. Functionally independent. Denies use of DME or services. No PCP. G brochure provided. She will call to schedule. No HCP. CM provided education and offered assistance. Patient declined. DP: Goal is home self care. S.O. to transport. CM will continue to follow.
--- NOTE | 2024-12-12 09:52 | P.PNIM_ITS ---
Subjective Subjective Date of Service: 12/12/24 Interval History: abd pain Review of Systems Seems similar yesterday. Nausea. Review of Systems: Yes all other systems are reviewed and are negative Physical Exam 2 Vital Signs: Vital Signs: Last Vital Signs Temp 97.6 F 12/12/24 08:30 Pulse 58 12/12/24 08:30 Resp 18 12/12/24 08:30 BP 99/57 L 12/12/24 08:30 Pulse Ox 99 12/12/24 08:30 O2 Del Method Room Air 12/12/24 08:30 BMI result Body Mass Index 33.7 Appearance: Alert.? Oriented X3.? cvs: [id number], [id number] . res: clear to auscultation ,no rhonchii or wheezing abd:soft, abd pain epigastric area, bs present. ext pulses present , no cyanosis . neuro: axo3 , nonfocal. Objective Data Active Medications Acetaminophen (Acetaminophen 325 Mg Tablet) 650 mg PO Q6H PRN PRN Reason: Pain, Mild 1-3,fever,headache Albuterol/Ipratropium (Albuterol/Iprat 2.5/0.5mg 3 Ml Ampul.Neb) 3 ml INHALE Q4H PRN PRN Reason: Shortness of Breath/Wheezing Calcium Carbonate (Calcium Carbonate 750 Mg Tab.Chew) 750 mg PO Q4H PRN PRN Reason: Heartburn Hydromorphone HCl (Hydromorphone Hcl 0.5 Mg/0.5 Ml Syringe) 0.5 mg IVPUSH Q4H PRN; Protocol PRN Reason: Pain, Moderate(Pain Scale 4-6) Last Admin: 12/12/24 05:54 Dose: 0.5 mg Documented By: ALEXANDRA Hydromorphone HCl (Hydromorphone Hcl 1 Mg/Ml Syringe) 1 mg IVPUSH Q4H PRN; Protocol PRN Reason: Pain, Severe (Pain Scale 7-10) Last Admin: 12/11/24 22:16 Dose: 1 mg Documented By: NELSON Piperacillin Sod/Tazobactam (Sod 4.5 gm/ Sodium Chloride) 100 mls @ 200 mls/hr IV Q6H [facility] Last Infusion: 12/12/24 06:39 Dose: Infused Documented By: [email or web address] Dextrose/Sodium Chloride (D5ns) 1,000 mls @ 100 mls/hr IVCONT .Q10H [facility] Last Infusion: 12/12/24 06:39 Dose: 100 mls/hr Documented By: ALEXANDRA Magnesium Hydroxide (Milk Of Magnesia 30 Ml Oral.Susp) 30 ml PO DAILY PRN PRN Reason: Constipation Melatonin (Melatonin 3 Mg Tablet) 6 mg PO BEDTIME PRN PRN Reason: Insomnia Ondansetron HCl (Ondansetron Hcl 4 Mg/2 Ml Vial) 4 mg IVPUSH Q6H PRN PRN Reason: Nausea and Vomiting Last Admin: 12/11/24 12:01 Dose: 4 mg Documented By: GRAZEMIL Pantoprazole Sodium (Pantoprazole Sodium 40 Mg/10 Ml Vial) 40 mg IVPUSH BID@0630,1630 [facility] Last Admin: 12/12/24 05:48 Dose: 40 mg Documented By: ALEXANDRA Senna (Sennosides 8.6 Mg Tablet) 17.2 mg PO BEDTIME [facility] Last Admin: 12/11/24 22:23 Dose: 17.2 mg Documented By: NELSON Sodium Chloride (0.9 % Sodium Chloride Flush 3 Ml Syringe) 3 ml IVFLUSH QSHIFT [facility] Last Admin: 12/12/24 09:04 Dose: Not Given Documented By: EDI Non-Admin Reason: IV Running Labs 12/11/24 05:32 12/12/24 08:00 Labs: Laboratory Results - last 24 hr 12/11/24 12/12/24 11:00 08:00 Hold Purple Top SEE NOTE Anion Gap 10 L Estim Creat Clear Calc 155.6 Estimated GFR > 60 Random Glucose 131 H Calcium 8.1 L Total Bilirubin 3.9 H AST 147 H ALT 196 H Alkaline Phosphatase 236 H Total Protein 6.6 Albumin 3.4 L Stool Occult Blood NEGATIVE Assessment and Plan (1) Cholelithiasis: Status: Acute (2) Transaminitis: Status: Acute Assessment and Plan: 39-year-old female Cam[place] speaking with past medical history only of G3, P3 X3 is being admitted for cholelithiasis with suspicion for choledocholithiasis, general surgery asked that Medicine admit this patient. It is possible that patient is in the very early stages of based on patient's current hCG of 4. Patient denies history of smoking, marijuana use, illicit drug use and only drinks alcohol on rare occasion. possible acute cholecystitis, pancreatitis-in setting of Cholelithiasis with possible choledocholithias/ transaminitis, elevated TBILI and DBILI abd pain somewhat improving plan:npo mrcp-positive for choledocholthats lft improving IV fluids,Dilaudid IV p.r.n. for pain,on Zosyn 4.5 G Q6H gi and surgery following Non-anion gap metabolic acidosis improved with hydration Anemia -H&H low on admission, 8.3 and 27.6, iron also low at 7, may need to consider IV Venofer Monitor CBC closely Beta HCG 4 -now trending down 3. 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 DVT prophylaxis: scd,ambulation PPI prophylaxis: Protonix ordered No med rec indicated as patient does not currently take any prescription meds or [id number] meds including vitamins or homeopathics Full code status Quality Stroke Does the patient have a stroke diagnosis?: No Reason for No Anti-thrombotic by Day Two: Contraindicated VTE Prior VTE?: No VTE Risk Level:: Medical - moderate - high VTE Device Contraindication: N/A - Device Ordered VTE Drug Contraindication: Treatment Not Indicated
--- NOTE | 2024-12-12 13:56 | P.PNGS_ITS ---
Subjective Subjective Date of Service: 12/12/24 Interval history: Patient feeling okay able to tolerate p.o. liquids Physical Exam 2 Vital Signs: Vital Signs: Last Vital Signs Temp 97.6 F 12/12/24 08:30 Pulse 58 12/12/24 08:30 Resp 18 12/12/24 08:30 BP 99/57 L 12/12/24 08:30 Pulse Ox 99 12/12/24 08:30 O2 Del Method Room Air 12/12/24 08:30 BMI result Body Mass Index 33.7 Const: General: cooperative, healthy appearing and comfortable GI: Other: Abdomen is soft minimally tender in the epigastric area Objective Data Active Medications Acetaminophen (Acetaminophen 325 Mg Tablet) 650 mg PO Q6H PRN PRN Reason: Pain, Mild 1-3,fever,headache Albuterol/Ipratropium (Albuterol/Iprat 2.5/0.5mg 3 Ml Ampul.Neb) 3 ml INHALE Q4H PRN PRN Reason: Shortness of Breath/Wheezing Calcium Carbonate (Calcium Carbonate 750 Mg Tab.Chew) 750 mg PO Q4H PRN PRN Reason: Heartburn Hydromorphone HCl (Hydromorphone Hcl 0.5 Mg/0.5 Ml Syringe) 0.5 mg IVPUSH Q4H PRN; Protocol PRN Reason: Pain, Moderate(Pain Scale 4-6) Last Admin: 12/12/24 05:54 Dose: 0.5 mg Documented By: ALEXANDRA Hydromorphone HCl (Hydromorphone Hcl 1 Mg/Ml Syringe) 1 mg IVPUSH Q4H PRN; Protocol PRN Reason: Pain, Severe (Pain Scale 7-10) Last Admin: 12/11/24 22:16 Dose: 1 mg Documented By: NELSON Piperacillin Sod/Tazobactam (Sod 4.5 gm/ Sodium Chloride) 100 mls @ 200 mls/hr IV Q6H [facility] Last Infusion: 12/12/24 10:38 Dose: Infused Documented By: EDI Dextrose/Sodium Chloride (D5ns) 1,000 mls @ 100 mls/hr IVCONT .Q10H [facility] Last Admin: 12/12/24 12:27 Dose: 100 mls/hr Documented By: EDI Magnesium Hydroxide (Milk Of Magnesia 30 Ml Oral.Susp) 30 ml PO DAILY PRN PRN Reason: Constipation Melatonin (Melatonin 3 Mg Tablet) 6 mg PO BEDTIME PRN PRN Reason: Insomnia Ondansetron HCl (Ondansetron Hcl 4 Mg/2 Ml Vial) 4 mg IVPUSH Q6H PRN PRN Reason: Nausea and Vomiting Last Admin: 12/12/24 12:48 Dose: 4 mg Documented By: EDI Pantoprazole Sodium (Pantoprazole Sodium 40 Mg/10 Ml Vial) 40 mg IVPUSH BID@0630,1630 [facility] Last Admin: 12/12/24 05:48 Dose: 40 mg Documented By: ALEXANDRA Senna (Sennosides 8.6 Mg Tablet) 17.2 mg PO BEDTIME [facility] Last Admin: 12/11/24 22:23 Dose: 17.2 mg Documented By: NELSON Sodium Chloride (0.9 % Sodium Chloride Flush 3 Ml Syringe) 3 ml IVFLUSH QSHIFT [facility] Last Admin: 12/12/24 09:04 Dose: Not Given Documented By: EDI Non-Admin Reason: IV Running Labs 12/11/24 05:32 12/12/24 08:00 Labs: Laboratory Results - last 24 hr 12/12/24 08:00 Hold Purple Top SEE NOTE Anion Gap 10 L Estim Creat Clear Calc 155.6 Estimated GFR > 60 Random Glucose 131 H Calcium 8.1 L Total Bilirubin 3.9 H AST 147 H ALT 196 H Alkaline Phosphatase 236 H Total Protein 6.6 Albumin 3.4 L Procedures Date of Service Date of Service: 12/12/24 Progress Note: A&P Assessment and plan (1) Gallstone pancreatitis: Status: Acute Assessment and Plan: 39-year-old female with gallstone pancreatitis labs a little improved. Plan is for her to undergo ERCP on Saturday and then once she is stable from this we will consider laparoscopic cholecystectomy. Okay to continue management as per medical team for now Time Spent With Patient Time: Total time managing care of this patient today ____ minutes. Quality Stroke Does the patient have a stroke diagnosis?: No Reason for No Anti-thrombotic by Day Two: Contraindicated VTE Prior VTE?: No VTE Risk Level:: Medical - moderate - high VTE Device Contraindication: N/A - Device Ordered VTE Drug Contraindication: Treatment Not Indicated
[2024-12-12 15:47] VITALS: BP 105/58; PULSE 69; RESP 18; TEMP 36.5; O2SAT 99
[2024-12-12 19:26] VITALS: BP 134/62; PULSE 51; RESP 16; TEMP 36.2; O2SAT 98
[2024-12-13 03:56] VITALS: BP 114/58; PULSE 50; RESP 16; TEMP 36.6; O2SAT 100
[2024-12-13] MEDS: 0.9 % Sodium Chloride Flush 3 ML SYRINGE IVFLUSH ×3 (08:09→21:18)
[2024-12-13 08:46] VITALS: BP 99/51; PULSE 64; RESP 12; TEMP 36.8; O2SAT 95
[2024-12-13 08:47] LABS: Alanine Aminotransferase 201 U/L (0-31); Albumin Level 3.3 g/dL (3.5-5.0); Alkaline Phosphatase 209 U/L (39-117); Anion Gap 10 (12-20); Aspartate Amino Transferase 136 U/L (5-31); Blood Urea Nitrogen 5 mg/dL (9-16); Calcium 8.0 mg/dL (8.4-10.2); Carbon Dioxide 23 mmol/L (22-29); Chloride 110 mmol/L (96-108); Creatinine Clr Calc Pharmacy 138.9; Estimated Glomerular Filt Rate > 60; Potassium 3.2 mmol/L (3.3-5.1); Sodium 140 mmol/L (135-145); Total Protein 6.7 g/dL (6.5-8.0)
[2024-12-13] MEDS: Potassium Chloride ER 20 MEQ TAB.ER.PRT 40 MEQ PO (11:58)
[2024-12-13 12:17] LABS: Magnesium 1.9 mg/dL (1.6-2.6)
--- NOTE | 2024-12-13 12:32 | P.PNGS_ITS ---
Subjective Subjective Date of Service: 12/13/24 Interval history: Feels well tolerating liquids well we will be NPO for ERCP tomorrow Physical Exam 2 Vital Signs: Vital Signs: Last Vital Signs Temp 98.3 F 12/13/24 08:46 Pulse 64 12/13/24 08:46 Resp 12 12/13/24 08:46 BP 99/51 L 12/13/24 08:46 Pulse Ox 95 12/13/24 08:46 O2 Del Method Room Air 12/13/24 08:46 BMI result Body Mass Index 33.7 GI: Other: Abdomen is soft nontender Objective Data Active Medications Acetaminophen (Acetaminophen 325 Mg Tablet) 650 mg PO Q6H PRN PRN Reason: Pain, Mild 1-3,fever,headache Albuterol/Ipratropium (Albuterol/Iprat 2.5/0.5mg 3 Ml Ampul.Neb) 3 ml INHALE Q4H PRN PRN Reason: Shortness of Breath/Wheezing Calcium Carbonate (Calcium Carbonate 750 Mg Tab.Chew) 750 mg PO Q4H PRN PRN Reason: Heartburn Last Admin: 12/12/24 15:42 Dose: 750 mg Documented By: EDI Piperacillin Sod/Tazobactam (Sod 4.5 gm/ Sodium Chloride) 100 mls @ 200 mls/hr IV Q6H [facility] Last Admin: 12/13/24 11:58 Dose: 200 mls/hr Documented By: EDI Magnesium Hydroxide (Milk Of Magnesia 30 Ml Oral.Susp) 30 ml PO DAILY PRN PRN Reason: Constipation Melatonin (Melatonin 3 Mg Tablet) 6 mg PO BEDTIME PRN PRN Reason: Insomnia Ondansetron HCl (Ondansetron Hcl 4 Mg/2 Ml Vial) 4 mg IVPUSH Q6H PRN PRN Reason: Nausea and Vomiting Last Admin: 12/12/24 12:48 Dose: 4 mg Documented By: EDI Pantoprazole Sodium (Pantoprazole Sodium 40 Mg/10 Ml Vial) 40 mg IVPUSH BID@0630,1630 [facility] Last Admin: 12/13/24 06:14 Dose: 40 mg Documented By: ALEXANDRA Senna (Sennosides 8.6 Mg Tablet) 17.2 mg PO BEDTIME [facility] Last Admin: 12/12/24 21:48 Dose: Not Given Documented By: ALEXANDRA Non-Admin Reason: Patient Refused Sodium Chloride (0.9 % Sodium Chloride Flush 3 Ml Syringe) 3 ml IVFLUSH QSHIFT [facility] Last Admin: 12/13/24 08:09 Dose: 3 ml Documented By: EDI Labs 12/11/24 05:32 12/13/24 08:08 Labs: Laboratory Results - last 24 hr 12/13/24 08:08 Hold Purple Top SEE NOTE Anion Gap 10 L Estim Creat Clear Calc 138.9 Estimated GFR > 60 Random Glucose 102 Calcium 8.0 L Magnesium 1.9 Total Bilirubin 1.5 H AST 136 H ALT 201 H Alkaline Phosphatase 209 H Lactate Dehydrogenase 170 Total Protein 6.7 Albumin 3.3 L Beta HCG, Quant 3 Procedures Date of Service Date of Service: 12/13/24 Progress Note: A&P Assessment and plan (1) Gallstone pancreatitis: Status: Acute Assessment and Plan: Patient doing better labs are improving today. We will have GI and medical team carry out ERCP etc. and we will plan for laparoscopic cholecystectomy later on before discharged Time Spent With Patient Time: Total time managing care of this patient today ____ minutes. Quality Stroke Does the patient have a stroke diagnosis?: No Reason for No Anti-thrombotic by Day Two: Contraindicated VTE Prior VTE?: No VTE Risk Level:: Medical - moderate - high VTE Device Contraindication: N/A - Device Ordered VTE Drug Contraindication: Treatment Not Indicated
--- NOTE | 2024-12-13 13:04 | P.PNIM_ITS ---
Subjective Subjective Date of Service: 12/13/24 Interval History: choledocholithias Review of Systems abd pain and nausea improving Review of Systems: Yes all other systems are reviewed and are negative Physical Exam 2 Vital Signs: Vital Signs: Last Vital Signs Temp 98.3 F 12/13/24 08:46 Pulse 64 12/13/24 08:46 Resp 12 12/13/24 08:46 BP 99/51 L 12/13/24 08:46 Pulse Ox 95 12/13/24 08:46 O2 Del Method Room Air 12/13/24 08:46 BMI result Body Mass Index 33.7 Appearance: Alert.? Oriented X3.? cvs: rrr, [id number] . res: clear to auscultation ,no rhonchii or wheezing abd:soft, abd pain epigastric area, bs present. ext pulses present , no cyanosis . neuro: axo3 , nonfocal. Objective Data Active Medications Acetaminophen (Acetaminophen 325 Mg Tablet) 650 mg PO Q6H PRN PRN Reason: Pain, Mild 1-3,fever,headache Albuterol/Ipratropium (Albuterol/Iprat 2.5/0.5mg 3 Ml Ampul.Neb) 3 ml INHALE Q4H PRN PRN Reason: Shortness of Breath/Wheezing Calcium Carbonate (Calcium Carbonate 750 Mg Tab.Chew) 750 mg PO Q4H PRN PRN Reason: Heartburn Last Admin: 12/12/24 15:42 Dose: 750 mg Documented By: EDI Piperacillin Sod/Tazobactam (Sod 4.5 gm/ Sodium Chloride) 100 mls @ 200 mls/hr IV Q6H [facility] Last Infusion: 12/13/24 12:33 Dose: Infused Documented By: EDI Magnesium Hydroxide (Milk Of Magnesia 30 Ml Oral.Susp) 30 ml PO DAILY PRN PRN Reason: Constipation Melatonin (Melatonin 3 Mg Tablet) 6 mg PO BEDTIME PRN PRN Reason: Insomnia Ondansetron HCl (Ondansetron Hcl 4 Mg/2 Ml Vial) 4 mg IVPUSH Q6H PRN PRN Reason: Nausea and Vomiting Last Admin: 12/12/24 12:48 Dose: 4 mg Documented By: EDI Pantoprazole Sodium (Pantoprazole Sodium 40 Mg/10 Ml Vial) 40 mg IVPUSH BID@0630,1630 [facility] Last Admin: 12/13/24 06:14 Dose: 40 mg Documented By: ALEXANDRA Senna (Sennosides 8.6 Mg Tablet) 17.2 mg PO BEDTIME [facility] Last Admin: 12/12/24 21:48 Dose: Not Given Documented By: ALEXANDRA Non-Admin Reason: Patient Refused Sodium Chloride (0.9 % Sodium Chloride Flush 3 Ml Syringe) 3 ml IVFLUSH QSHIFT [facility] Last Admin: 12/13/24 08:09 Dose: 3 ml Documented By: EDI Labs 12/11/24 05:32 12/13/24 08:08 Labs: Laboratory Results - last 24 hr 12/13/24 08:08 Hold Purple Top SEE NOTE Anion Gap 10 L Estim Creat Clear Calc 138.9 Estimated GFR > 60 Random Glucose 102 Calcium 8.0 L Magnesium 1.9 Total Bilirubin 1.5 H AST 136 H ALT 201 H Alkaline Phosphatase 209 H Lactate Dehydrogenase 170 Total Protein 6.7 Albumin 3.3 L Beta HCG, Quant 3 Assessment and Plan (1) Gallstone pancreatitis: Status: Acute (2) Cholelithiasis: Status: Acute Assessment and Plan: 39-year-old female [place]ive[place] speaking with past medical history only of G3, P3 X3 is being admitted for cholelithiasis with suspicion for choledocholithiasis, general surgery asked that Medicine admit this patient. It is possible that patient is in the very early stages of based on patient's current hCG of 4. Patient denies history of smoking, marijuana use, illicit drug use and only drinks alcohol on rare occasion. possible acute cholecystitis, pancreatitis-in setting of Cholelithiasis with possible choledocholithias/ transaminitis, elevated TBILI and DBILI abd pain somewhat improving plan:npo mrcp-positive for choledocholthats lft improving IV fluids,Dilaudid IV p.r.n. for pain,on Zosyn 4.5 G Q6H gi and surgery following Non-anion gap metabolic acidosis improved with hydration Anemia -H&H low on admission, 8.3 and 27.6, iron also low at 7, may need to consider IV Venofer Monitor CBC closely Beta HCG 4 -now trending down 3,rechecked still 3. 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 ongoing need :possible acute cholecystitis, pancreatitis-in setting of Cholelithiasis with possible choledocholithias/ transaminitis- moniter lfts ,possible need of ercp. Quality Stroke Does the patient have a stroke diagnosis?: No Reason for No Anti-thrombotic by Day Two: Contraindicated VTE Prior VTE?: No VTE Risk Level:: Medical - moderate - high VTE Device Contraindication: N/A - Device Ordered VTE Drug Contraindication: Treatment Not Indicated
[2024-12-13 15:55] VITALS: BP 129/71; PULSE 67; RESP 18; TEMP 36.3; O2SAT 95
[2024-12-13 16:00] VITALS: BP 110/59; PULSE 50; RESP 16; O2SAT 99
--- NOTE | 2024-12-13 16:07 | PC.NURSE ---
Addendum entered by Michelle Grey RN 12/13/24 16:24: BP 110/59, HR 50, 99% RA. Original Note: This Nurse notified by construction scheduler tech that pt. had a run of VTACH, 18 beats. notified, new orders added.
[2024-12-13] MEDS: Magnesium Sulfate/H2O 2 GM/50 ML PIGGYBACK IV (16:13)
[2024-12-13 16:51] LABS: Anion Gap 14 (12-20); Blood Urea Nitrogen 5 mg/dL (9-16); Calcium 8.2 mg/dL (8.4-10.2); Carbon Dioxide 19 mmol/L (22-29); Chloride 112 mmol/L (96-108); Creatinine Clr Calc Pharmacy 136.5; Estimated Glomerular Filt Rate > 60; Potassium 4.1 mmol/L (3.3-5.1); Sodium 141 mmol/L (135-145)
[2024-12-13] MEDS: Albumin Human 25 % 100 ML IV ×2 (17:22→21:11)
[2024-12-13 17:51] VITALS: BP 113/61; PULSE 52; RESP 16; TEMP 36.5; O2SAT 99
[2024-12-13] MEDS: Lactated Ringers 1,000 ML 100 ML IVCONT (18:15)
[2024-12-13 18:19] LABS: Troponin-I High Sensitivity < 2.7 ng/L (<3.5-17.0)
[2024-12-13 19:06] VITALS: BP 134/71; PULSE 87; RESP 16; TEMP 36.9; O2SAT 96
[2024-12-14] VITALS (11 sets, daily range): BP systolic 120–156; BP diastolic 61–85; PULSE 48–66; RESP 15–18; TEMP 36.3–37.6; O2SAT 92–100
--- NOTE | 2024-12-14 | ECG_ITS ---
Test Reason : Bradycardia Blood Pressure : */* mmHG Vent. Rate : 64 BPM Atrial Rate : 77 BPM P-R Int : 138 ms QRS Dur : 84 ms QT Int : 404 ms P-R-T Axes : 47 30 13 degrees QTcB Int : 416 ms Sinus rhythm with marked sinus arrhythmia Low voltage QRS Borderline ECG When compared with ECG of 10-Dec-2024 17:50, No significant change was found Referred By: Opal Guerrero Electronically Signed By: PAM LUNDY MD
[2024-12-14] MEDS: Albumin Human 25 % 100 ML IV ×2 (04:37→11:32)
[2024-12-14] MEDS: Lactated Ringers 1,000 ML 100 ML IVCONT ×2 (04:38→20:47)
--- NOTE | 2024-12-14 07:00 | CA_ITS ---
Transthoracic Echocardiogram Patient (Last, First, Middle): Dilia Reardon, Gender: Female Date of : 1985 Age: 39 Procedure Date: 12/14/2024 Procedure Type: Transthoracic Echocardiogram Location: [facility] [place] Height: 160.02 cm Weight: 86.18 kg BSA: 1.89 m2 Heart Rate: bpm BP: 143 / 71 mmHg R D Manager: YUKI Referring MD: Opal Guerrero MD Assistant Education Director: Jamal Busch MD Symptoms: nsvt Study Quality: Adequate with contrast ECG Rhythm: Sinus Conclusions: - Essentially normal study Findings Procedure Information Contrast agent, definity, is being given per protocol without apparent complications. Left Ventricle Normal left ventricular size, thickness, and systolic function. The visually estimated ejection fraction is between 60-65%. Diastolic function is normal for age. Right Ventricle Normal right ventricular cavity size and systolic function. Atria Both atria are normal in size. There is no evidence of interatrial shunt. Aortic Valve Normal aortic valve structure and function. There is no aortic valve stenosis. There is no aortic valve regurgitation. Mitral Valve Normal mitral valve structure and function. There is trace mitral valve regurgitation. There is no mitral valve stenosis. Pulmonic Valve The pulmonic valve is likely normal. Tricuspid Valve Normal tricuspid valve structure. There is mild tricuspid valve regurgitation. The right ventricular systolic pressure is normal. The right ventricular systolic pressure is 32 mmHg. Normal right atrial pressure. There is no evidence of pulmonary hypertension. Great Vessels All visible segments of the aorta are normal in size. The pulmonary artery was not well visualized. Venous The inferior vena cava is normal in size. Pericardium/Pleural There is no evidence of pericardial effusion. Prior Study Comparison No prior study available for comparison. Measurements 2D Linear Measurements IVSd: 0.65 0.6-0.9/0.6-1.0 cm LVIDd: 5.08 3.9-5.3/4.2-5.9 cm LVIDd Index: 2.69 2.4-3.2/2.2-3.1 cm/m2 LVIDs: 3.11 2.0-3.6 cm LVPWd: 0.68 0.7-1.1 cm LA Diam: 3.60 2.7-3.8/3.0-4.0 cm LAIDs Index: 1.90 1.5-2.3 cm/m2 LV Mass: 137.18 67-162/88-224 g LV Mass Index: 72.58 43-95/49-115 g/m2 LVOT Diam: 2.10 3.0+(-)1.3 cm 2D Systolic Function EF 4C: 63.80 >55% EF 2C: 58.70 >55% EF BiP: 60.10 >55% Mitral Valve MV Pk E: 1.29 MV PK A: 1.13 MV Decel Time: 96.00 E/A: 1.10 E'Lateral: 11.70 E'Medial: 14.50 E/E' Med: 8.90 E/E' Lat: 11.00 PHT: 28.00 MVA PHT: 7.86 Decel [place]: 13.41 Aortic Valve AoV Pk Arsen: 1.84 AoV Pk Grad: 14.00 LVOT LVOT Pk Arsen: 1.55 LVOT Mn Arsen: 0.92 LVOT VTI: 0.30 LVOT Pk Grad: 10.00 LVOT Mn Grad: 4.00 LVOT Diam: 2.10 LVOT Area: 3.46 Diastolic Function MV Pk E: 1.29 MV Pk A: 1.13 E/A: 1.10 E'Medial: 14.50 E/E' Med: 8.90 E' Laterial: 11.70 E/E' Lat: 11.00 Right Ventricle TAPSE (mm): 34.50 TVS' Arsen: 17.30 Tricuspid Valve TR Pk Arsen: 2.68 TR Pk Grad: 29.00 RA Press: 3.00 RVSP: 32.00 Great Vessels Aorta Sinus of Valsalva: 2.70 2.0-3.5 cm Ao Asc: 3.30 2.1-3.4 cm Pulmonary Veins Pulm Vein S/D 1.80 Pulmonary Valve PV Pk Arsen: 1.02 Peak PV Grad: 4.00 Updated in Other Vendor System with Status of Final Jamal Busch MD electronically signed on 12/14/2024 11:03:28 AM with status of Final
[2024-12-14 07:22] LABS: Anion Gap 14 (12-20); Blood Urea Nitrogen 6 mg/dL (9-16); Calcium 8.4 mg/dL (8.4-10.2); Carbon Dioxide 22 mmol/L (22-29); Chloride 109 mmol/L (96-108); Creatinine Clr Calc Pharmacy 134.1; Estimated Glomerular Filt Rate > 60; Magnesium 2.1 mg/dL (1.6-2.6); Potassium 3.6 mmol/L (3.3-5.1); Sodium 141 mmol/L (135-145)
[2024-12-14 08:02] LABS: Alanine Aminotransferase 163 U/L (0-31); Albumin Level 4.2 g/dL (3.5-5.0); Alkaline Phosphatase 170 U/L (39-117); Aspartate Amino Transferase 106 U/L (5-31); Total Protein 7.2 g/dL (6.5-8.0)
--- NOTE | 2024-12-14 08:32 | P.PNGS_ITS ---
Subjective Subjective Date of Service: 12/14/24 Interval history: Feels better. Denies any abd pain. Awaiting ERCP today. Physical Exam 2 Vital Signs: Vital Signs: Last Vital Signs Temp 97.7 F 12/14/24 07:51 Pulse 59 12/14/24 07:51 Resp 18 12/14/24 07:51 BP 150/72 H 12/14/24 07:51 Pulse Ox 94 12/14/24 07:51 O2 Del Method Room Air 12/14/24 07:51 O2 Flow Rate 4 12/14/24 07:51 BMI result Body Mass Index 33.7 Const: General: comfortable, no acute distress and alert O rientation/consciousness: patient oriented x3 Resp: Effort & Inspection: normal respiratory effort GI: Inspection: Yes normal to inspection Palpation (GI): Soft to palpation, nontender and no guarding Skin: General skin exam: no rashes or lesions noted and no jaundice Neuro: General: patient oriented x3 and moves all extremities Objective Data Active Medications Acetaminophen (Acetaminophen 325 Mg Tablet) 650 mg PO Q6H PRN PRN Reason: Pain, Mild 1-3,fever,headache Albuterol/Ipratropium (Albuterol/Iprat 2.5/0.5mg 3 Ml Ampul.Neb) 3 ml INHALE Q4H PRN PRN Reason: Shortness of Breath/Wheezing Calcium Carbonate (Calcium Carbonate 750 Mg Tab.Chew) 750 mg PO Q4H PRN PRN Reason: Heartburn Last Admin: 12/12/24 15:42 Dose: 750 mg Documented By: EDI Piperacillin Sod/Tazobactam (Sod 4.5 gm/ Sodium Chloride) 100 mls @ 200 mls/hr IV Q6H [facility] Last Infusion: 12/14/24 06:34 Dose: Infused Documented By: KORTNEY-JUMA Albumin Human (Kedbumin 25 %) 100 mls @ 100 mls/hr IV Q6H [facility] Stop: 12/14/24 11:14 Last Infusion: 12/14/24 05:48 Dose: Infused Documented By: KORTNEY-JUMA Lactated Ringer's (Lr) 1,000 mls @ 100 mls/hr IVCONT .Q10H [facility] Last Admin: 12/14/24 04:38 Dose: 100 mls/hr Documented By: OUSMANE Magnesium Hydroxide (Milk Of Magnesia 30 Ml Oral.Susp) 30 ml PO DAILY PRN PRN Reason: Constipation Magnesium Oxide (Magnesium Oxide 400 Mg Tablet) 400 mg PO BIDPC [facility] Last Admin: 12/13/24 17:16 Dose: 400 mg Documented By: EDI Melatonin (Melatonin 3 Mg Tablet) 6 mg PO BEDTIME PRN PRN Reason: Insomnia Ondansetron HCl (Ondansetron Hcl 4 Mg/2 Ml Vial) 4 mg IVPUSH Q6H PRN PRN Reason: Nausea and Vomiting Last Admin: 12/12/24 12:48 Dose: 4 mg Documented By: EDI Pantoprazole Sodium (Pantoprazole Sodium 40 Mg/10 Ml Vial) 40 mg IVPUSH DAILY@0630 [facility] Last Admin: 12/14/24 06:00 Dose: 40 mg Documented By: OUSMANE Senna (Sennosides 8.6 Mg Tablet) 17.2 mg PO BEDTIME [facility] Last Admin: 12/13/24 21:18 Dose: Not Given Documented By: UOSMANE Non-Admin Reason: Patient Refused Sodium Chloride (0.9 % Sodium Chloride Flush 3 Ml Syringe) 3 ml IVFLUSH QSHIFT [facility] Last Admin: 12/13/24 21:18 Dose: 3 ml Documented By: OUSMANE Labs 12/11/24 05:32 12/14/24 06:27 Labs: Laboratory Results - last 24 hr 12/13/24 12/13/24 12/13/24 08:08 16:16 17:06 Hold Purple Top SEE NOTE Anion Gap 10 L 14 Estim Creat Clear Calc 138.9 136.5 Estimated GFR > 60 > 60 Random Glucose 102 80 Calcium 8.0 L 8.2 L Magnesium 1.9 Total Bilirubin 1.5 H Direct Bilirubin AST 136 H ALT 201 H Alkaline Phosphatase 209 H Lactate Dehydrogenase 170 Troponin I High Sens < 2.7 Total Protein 6.7 Albumin 3.3 L Beta HCG, Quant 3 12/14/24 06:27 Hold Purple Top SEE NOTE Anion Gap 14 Estim Creat Clear Calc 134.1 Estimated GFR > 60 Random Glucose 75 Calcium 8.4 Magnesium 2.1 Total Bilirubin 1.3 H Direct Bilirubin 0.8 H AST 106 H ALT 163 H Alkaline Phosphatase 170 H Lactate Dehydrogenase Troponin I High Sens Total Protein 7.2 Albumin 4.2 Beta HCG, Quant Procedures Date of Service Date of Service: 12/14/24 Progress Note: A&P Assessment and plan (1) Gallstone pancreatitis: Status: Acute Plan MRCP showed multiple CBD stones. LFTs downtrending. Awaiting ERCP today. Discussed proceeding with laparoscopic cholecystectomy possible open during her stay to prevent recurrence. Risks, benefits, alternatives of laparoscopic possible open cholecystectomy were reviewed with the patient including but not limited to bleeding, infection, numbness, pain, poor healing, injury to the liver, bowel or bile ducts, leak, retained stones and the patient wishes to proceed with surgery during this stay if we can get it done tomorrow. She will be added onto the OR schedule for tomorrow tenatively pending the ERCP.?All questions were answered. Time Spent With Patient Time: Total time managing care of this patient today ____ minutes. Quality Stroke Does the patient have a stroke diagnosis?: No Reason for No Anti-thrombotic by Day Two: Contraindicated VTE Prior VTE?: No VTE Risk Level:: Medical - moderate - high VTE Device Contraindication: N/A - Device Ordered VTE Drug Contraindication: Treatment Not Indicated
[2024-12-14 09:33] LABS: UPreg QC Valid YES
--- NOTE | 2024-12-14 10:57 | PM.CNCAR ---
History of Present Illness History of Present Illness Date of Service: 12/14/24 Requesting physician: Opal Guerrero Consult reason: other (Cardiac arrhythmias) Chief complaint: abd pain Narrative: I was consulted to see Dilia in cardiology consultation today for noted 1 episode of wide complex tachycardia yesterday and then bradycardia. Tachycardia episode happened around 15:43. Patient has no symptoms related to it. Since then was transferred to the [facility] floor. He is noted to have intermittent episode of bradycardia with heart rate in the 45 range with occasional Wenckebach noted. Also possible blocked PACs noted with some sinus pauses although no pauses greater than 3 seconds. Patient says she has never had any prior cardiac issues. Denies any episodes of syncope. Denies any symptoms of lightheadedness. Blood pressure is actually on the higher side. She is admitted with gallstone pancreatitis and MRCP shows acute cholecystitis with acute pancreatitis as well as acute choledocholithiasis. She is planned to undergo ERCP. She is currently not having any cardiac symptoms. Blood pressure is on the elevated side. Review of Systems Constitutional: Constitutional: Reports no additional constitutional complaints ENT: Reports system reviewed and no additional complaints, except as documented Cardiovascular: Cardiovascular: Reports no additional cardiovascular complaints Respiratory: Respiratory: Reports no additional respiratory complaints Gastrointestinal: Gastrointestinal: Reports abdominal pain (Has improved) Genitourinary: Genitourinary: Reports no additional female genitourinary complaints Musculoskeletal: Musculoskeletal: Reports no additional musculoskeletal complaints Integumentary/Breasts: Skin/Breast: Reports system reviewed and no additional complaints, except as docu Neurologic: Reports system reviewed and no additional complaints, except as documented Psychiatric: Psychiatric: Reports no additional psychiatric complaints Allergic/Immunologic: Allergic/Immunologic: Reports no additional allergic/immunologic complaints [facility] Past Medical History Medical History Obesity Surgical History Surgical History History of Social History Social History Patient Tobacco Use Status: Never used Tobacco service: No Travel History Ebola Risk: Travel/Contact With Anyone From Affected Area/s: No Has Patient Experienced Ebola Symptoms: No Meds Allergies Allergy/AdvReac Type Severity Reaction Status Date / Time No Known Allergies Allergy Verified 12/10/24 17:34 Active Medications: Current Medications Acetaminophen (Acetaminophen 325 Mg Tablet) 650 mg PO Q6H PRN PRN Reason: Pain, Mild 1-3,fever,headache Albuterol/Ipratropium (Albuterol/Iprat 2.5/0.5mg 3 Ml Ampul.Neb) 3 ml INHALE Q4H PRN PRN Reason: Shortness of Breath/Wheezing Calcium Carbonate (Calcium Carbonate 750 Mg Tab.Chew) 750 mg PO Q4H PRN PRN Reason: Heartburn Last Admin: 12/12/24 15:42 Dose: 750 mg Piperacillin Sod/Tazobactam (Sod 4.5 gm/ Sodium Chloride) 100 mls @ 200 mls/hr IV Q6H [facility] Last Infusion: 12/14/24 06:34 Dose: Infused Albumin Human (Kedbumin 25 %) 100 mls @ 100 mls/hr IV Q6H [facility] Stop: 12/14/24 11:14 Last Infusion: 12/14/24 05:48 Dose: Infused Lactated Ringer's (Lr) 1,000 mls @ 100 mls/hr IVCONT .Q10H [facility] Last Admin: 12/14/24 04:38 Dose: 100 mls/hr Potassium Chloride (Potassium Chloride/H20) 10 meq in 100 mls @ 100 mls/hr IV Q1H [facility] Stop: 12/14/24 12:59 Magnesium Hydroxide (Milk Of Magnesia 30 Ml Oral.Susp) 30 ml PO DAILY PRN PRN Reason: Constipation Magnesium Oxide (Magnesium Oxide 400 Mg Tablet) 400 mg PO BIDPC [facility] Last Admin: 12/13/24 17:16 Dose: 400 mg Melatonin (Melatonin 3 Mg Tablet) 6 mg PO BEDTIME PRN PRN Reason: Insomnia Ondansetron HCl (Ondansetron Hcl 4 Mg/2 Ml Vial) 4 mg IVPUSH Q6H PRN PRN Reason: Nausea and Vomiting Last Admin: 12/12/24 12:48 Dose: 4 mg Pantoprazole Sodium (Pantoprazole Sodium 40 Mg/10 Ml Vial) 40 mg IVPUSH DAILY@0630 [facility] Last Admin: 12/14/24 06:00 Dose: 40 mg Senna (Sennosides 8.6 Mg Tablet) 17.2 mg PO BEDTIME [facility] Last Admin: 12/13/24 21:18 Dose: Not Given Sodium Chloride (0.9 % Sodium Chloride Flush 3 Ml Syringe) 3 ml IVFLUSH QSHIFT [facility] Last Admin: 12/13/24 21:18 Dose: 3 ml Home Medications ?Medication ?Instructions ?Recorded ?Confirmed ?Last Taken ?Type No Known Home Meds 12/10/24 12/10/24 Unknown History Physical Exam Vital Signs: Vital Signs: Last Vital Signs Temp 97.7 F 12/14/24 07:51 Pulse 59 12/14/24 07:51 Resp 18 12/14/24 07:51 BP 150/72 H 12/14/24 07:51 Pulse Ox 94 12/14/24 07:51 O2 Del Method Room Air 12/14/24 07:51 O2 Flow Rate 4 12/14/24 07:51 BMI result Body Mass Index 33.7 Objective Labs and Meds 12/11/24 05:32 12/14/24 06:27 Lab results: Laboratory Results - last 24 hr 12/13/24 12/13/24 12/13/24 08:08 16:16 17:06 Hold Purple Top SEE NOTE Sodium 141 Potassium 4.1 D Chloride 112 H Carbon Dioxide 19 L Anion Gap 14 BUN 5 L Creatinine 0.57 Estim Creat Clear Calc 136.5 Estimated GFR > 60 Random Glucose 80 Calcium 8.2 L Magnesium 1.9 Total Bilirubin Direct Bilirubin AST ALT Alkaline Phosphatase Lactate Dehydrogenase 170 Troponin I High Sens < 2.7 Total Protein Albumin Urine Test 12/14/24 12/14/24 06:27 09:15 Hold Purple Top SEE NOTE Sodium 141 Potassium 3.6 Chloride 109 H Carbon Dioxide 22 Anion Gap 14 BUN 6 L Creatinine 0.58 Estim Creat Clear Calc 134.1 Estimated GFR > 60 Random Glucose 75 Calcium 8.4 Magnesium 2.1 Total Bilirubin 1.3 H Direct Bilirubin 0.8 H AST 106 H ALT 163 H Alkaline Phosphatase 170 H Lactate Dehydrogenase Troponin I High Sens Total Protein 7.2 Albumin 4.2 Urine Test NEGATIVE Echo read and shows essentially normal study Assessment and Plan (1) Cardiac arrhythmia: Status: Acute Cardiac arrhythmias with episodes of intermittent Wenckebach and sinus bradycardia concussion related to enhance vagal tone. Patient has no overt cardiac symptoms and has never had any prior cardiac symptoms or syncopal episodes. This appears to be more physiologic than pathologic at this point time and does not represent an unstable rhythm. At this point time there was no additional intervention such as pacing required. Patient noted to have wide complex rhythm could represent SVT with aberrancy. She has overall normal LV ejection fraction. Could be related to electrolyte abnormalities. Continue to aggressively treat potassium as well as magnesium and maintain potassium above 4 and magnesium above 2. Continue replacement therapy. I do not see any significant contraindication to undergoing ERCP which is clinically required for her care. This should be pursued as clinically indicated. Full disclosure cardiac monitoring during her GI procedure should be pursued. Can use atropine as needed. Would avoid rate lowering medication for now. Will follow with you Procedures Date of Service Date of Service: 12/14/24
[2024-12-14] MEDS: Potassium Chloride/H20 10 MEQ/100 ML PIGGYBACK 100 MEQ IV (13:32)
[2024-12-14] MEDS: Potassium Chloride Packet 20 MEQ PACKET 40 MEQ PO (13:35)
--- NOTE | 2024-12-14 14:19 | P.PNIM_ITS ---
Subjective Subjective Date of Service: 12/14/24 Interval History: choledocholithias Review of Systems abd pain /nausea improving Physical Exam 2 Vital Signs: Vital Signs: Last Vital Signs Temp 97.3 F 12/14/24 11:30 Pulse 66 12/14/24 11:30 Resp 18 12/14/24 11:30 BP 156/84 H 12/14/24 11:30 Pulse Ox 96 12/14/24 11:30 O2 Del Method Room Air 12/14/24 11:30 O2 Flow Rate 4 12/14/24 07:51 BMI result Body Mass Index 33.7 Appearance: Alert.? Oriented X3.? cvs: rrr, [id number] . res: clear to auscultation ,no rhonchii or wheezing abd:soft, abd pain epigastric area, bs present. ext pulses present , no cyanosis . neuro: axo3 , nonfocal. Objective Data Active Medications Acetaminophen (Acetaminophen 325 Mg Tablet) 650 mg PO Q6H PRN PRN Reason: Pain, Mild 1-3,fever,headache Albuterol/Ipratropium (Albuterol/Iprat 2.5/0.5mg 3 Ml Ampul.Neb) 3 ml INHALE Q4H PRN PRN Reason: Shortness of Breath/Wheezing Calcium Carbonate (Calcium Carbonate 750 Mg Tab.Chew) 750 mg PO Q4H PRN PRN Reason: Heartburn Last Admin: 12/12/24 15:42 Dose: 750 mg Documented By: EDI Piperacillin Sod/Tazobactam (Sod 4.5 gm/ Sodium Chloride) 100 mls @ 200 mls/hr IV Q6H [facility] Last Admin: 12/14/24 11:33 Dose: 100 mls/hr Documented By: SALLIE Lactated Ringer's (Lr) 1,000 mls @ 100 mls/hr IVCONT .Q10H [facility] Last Admin: 12/14/24 04:38 Dose: 100 mls/hr Documented By: OUSMANE Magnesium Hydroxide (Milk Of Magnesia 30 Ml Oral.Susp) 30 ml PO DAILY PRN PRN Reason: Constipation Magnesium Oxide (Magnesium Oxide 400 Mg Tablet) 400 mg PO BIDPC [facility] Last Admin: 12/14/24 11:32 Dose: 400 mg Documented By: SALLIE Melatonin (Melatonin 3 Mg Tablet) 6 mg PO BEDTIME PRN PRN Reason: Insomnia Ondansetron HCl (Ondansetron Hcl 4 Mg/2 Ml Vial) 4 mg IVPUSH Q6H PRN PRN Reason: Nausea and Vomiting Last Admin: 12/12/24 12:48 Dose: 4 mg Documented By: EDI Pantoprazole Sodium (Pantoprazole Sodium 40 Mg/10 Ml Vial) 40 mg IVPUSH DAILY@0630 [facility] Last Admin: 12/14/24 06:00 Dose: 40 mg Documented By: OUSMANE Senna (Sennosides 8.6 Mg Tablet) 17.2 mg PO BEDTIME [facility] Last Admin: 12/13/24 21:18 Dose: Not Given Documented By: OUSMANE Non-Admin Reason: Patient Refused Sodium Chloride (0.9 % Sodium Chloride Flush 3 Ml Syringe) 3 ml IVFLUSH QSHIFT [facility] Last Admin: 12/13/24 21:18 Dose: 3 ml Documented By: OUSMANE Labs 12/11/24 05:32 12/14/24 06:27 Labs: Laboratory Results - last 24 hr 12/13/24 12/13/24 12/14/24 16:16 17:06 06:27 Hold Purple Top SEE NOTE SEE NOTE Anion Gap 14 14 Estim Creat Clear Calc 136.5 134.1 Estimated GFR > 60 > 60 Random Glucose 80 75 Calcium 8.2 L 8.4 Magnesium 2.1 Total Bilirubin 1.3 H Direct Bilirubin 0.8 H AST 106 H ALT 163 H Alkaline Phosphatase 170 H Troponin I High Sens < 2.7 Total Protein 7.2 Albumin 4.2 Urine Test 12/14/24 09:15 Hold Purple Top Anion Gap Estim Creat Clear Calc Estimated GFR Random Glucose Calcium Magnesium Total Bilirubin Direct Bilirubin AST ALT Alkaline Phosphatase Troponin I High Sens Total Protein Albumin Urine Test NEGATIVE Assessment and Plan (1) Cardiac arrhythmia: Status: Acute (2) Transaminitis: Status: Acute Plan 39-year-old female [place] speaking with past medical history only of G3, P3 X3 is being admitted for cholelithiasis with suspicion for choledocholithiasis, general surgery asked that Medicine admit this patient. It is possible that patient is in the very early stages of based on patient's current hCG of 4. Patient denies history of smoking, marijuana use, illicit drug use and only drinks alcohol on rare occasion. Cardiac arrhythmias with episodes of intermittent Wenckebach and sinus bradycardia: no overt cardiac symptoms and has never had any prior cardiac symptoms or syncopal episodes. trop negative seen by cardiology: no overt cardiac symptoms and has never had any prior cardiac symptoms or syncopal episodes. This appears to be more physiologic than pathologic at this point time and does not represent an unstable rhythm. At this point time there was no additional intervention such as pacing required. Patient noted to have wide complex rhythm could represent SVT with aberrancy. She has overall normal LV ejection fraction. Could be related to electrolyte abnormalities. Continue to aggressively treat potassium as well as magnesium and maintain potassium above 4 and magnesium above 2. Continue replacement therapy. I do not see any significant contraindication to undergoing ERCP which is clinically required for her care. This should be pursued as clinically indicated. Full disclosure cardiac monitoring during her GI procedure should be pursued. Can use atropine as needed. Would avoid rate lowering medication possible acute cholecystitis, pancreatitis-in setting of Cholelithiasis with possible choledocholithias/ transaminitis, elevated TBILI and DBILI abd pain ,lft somewhat improving plan:npo mrcp-positive for choledocholthasis -need ercp today lft improving IV fluids,Dilaudid IV p.r.n. for pain,on Zosyn 4.5 G Q6H gi and surgery following-possible ercp today ,surgery following Non-anion gap metabolic acidosis improved with hydration. Anemia -H&H low on admission, 8.3 and 27.6, iron also low at 7, may need to consider IV Venofer Monitor CBC closely Beta HCG 4 -now trending down 3,rechecked still 3. 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 ongoing need :possible acute cholecystitis, pancreatitis-in setting of Cholelithiasis with possible choledocholithias/ transaminitis- moniter lfts ,possible need of ercp. Quality Stroke Does the patient have a stroke diagnosis?: No Reason for No Anti-thrombotic by Day Two: Contraindicated VTE Prior VTE?: No VTE Risk Level:: Medical - moderate - high VTE Device Contraindication: N/A - Device Ordered VTE Drug Contraindication: Treatment Not Indicated
--- NOTE | 2024-12-14 14:48 | PM.GIPN ---
Subjective Subjective Date of Service: 12/14/24 Interval History: pain is less pressing machine tender RUQ no nausea or vomiting Critical Care Time (minutes): 0 Physical Exam Vital Signs: Vital Signs: Last Vital Signs Temp 97.3 F 12/14/24 11:30 Pulse 66 12/14/24 11:30 Resp 18 12/14/24 11:30 BP 156/84 H 12/14/24 11:30 Pulse Ox 96 12/14/24 11:30 O2 Del Method Room Air 12/14/24 11:30 O2 Flow Rate 4 12/14/24 07:51 BMI result Body Mass Index 33.7 EXAM: GENERAL: The patient is well developed and nontoxic. VITAL SIGNS:see workflow HEENT: Nonicteric sclerae, PERRLA, EOMI. Oropharynx clear. Moist mucous membranes. Conjunctivae appear well perfused. No thyroid mass. CHEST: Chest wall is nontender. HEART: Regular rate and rhythm without murmurs. LUNGS: Clear to auscultation bilaterally. ABDOMEN: Soft, positive bowel sounds, nontender, no organomegaly.no flank tenderness SKIN: No rash, no excessive bruising, petechiae, or purpura. NEUROLOGIC: Cranial nerves II-XII intact without motor/sensory deficit. Psych: normal affect Objective Data Labs 12/11/24 05:32 12/14/24 14:59 Labs: Laboratory Results - last 24 hr 12/13/24 12/13/24 12/14/24 16:16 17:06 06:27 Hold Purple Top SEE NOTE SEE NOTE Sodium 141 141 Potassium 4.1 D 3.6 Chloride 112 H 109 H Carbon Dioxide 19 L 22 Anion Gap 14 14 BUN 5 L 6 L Creatinine 0.57 0.58 Estim Creat Clear Calc 136.5 134.1 Estimated GFR > 60 > 60 Random Glucose 80 75 Calcium 8.2 L 8.4 Magnesium 2.1 Total Bilirubin 1.3 H Direct Bilirubin 0.8 H AST 106 H ALT 163 H Alkaline Phosphatase 170 H Troponin I High Sens < 2.7 Total Protein 7.2 Albumin 4.2 Urine Test 12/14/24 09:15 Hold Purple Top Sodium Potassium Chloride Carbon Dioxide Anion Gap BUN Creatinine Estim Creat Clear Calc Estimated GFR Random Glucose Calcium Magnesium Total Bilirubin Direct Bilirubin AST ALT Alkaline Phosphatase Troponin I High Sens Total Protein Albumin Urine Test NEGATIVE Procedures Date of Service Date of Service: 12/14/24 Progress Note: A&P Assessment and plan (1) Cholelithiasis: Status: Acute Plan 1/ Acute gallstone pancreatitis with filling defects in CBD PLAN: 1/ ERCP today for further assessment using indomethacin Time Spent With Patient Time: Total time managing care of this patient today ____ minutes. Quality Stroke Does the patient have a stroke diagnosis?: No Reason for No Anti-thrombotic by Day Two: Contraindicated VTE Prior VTE?: No VTE Risk Level:: Medical - moderate - high VTE Device Contraindication: N/A - Device Ordered VTE Drug Contraindication: Treatment Not Indicated
[2024-12-14 15:19] LABS: Potassium 4.4 mmol/L (3.3-5.1)
--- NOTE | 2024-12-14 15:28 | MHC.CM.PN ---
Per rounds, pt. not ready to DC, GI to eval. CM to follow.
--- NOTE | 2024-12-14 16:31 | PC.NURSE ---
This RN spoke with PACU inquiring about her ERCP, I was told that they had to contact anesthesiology and see what time patient is going to have the procedure. Current K+ is 4.4
--- NOTE | 2024-12-14 17:00 | P.CONAN_ITS ---
HPI - Anesthesia Eval Consult details Narrative: For ERCP -- gallstone pancreatitis. PMF Active Problems Active Problems: All Active Problems Cardiac arrhythmia (Acute) Gallstone pancreatitis (Acute) Iron deficiency anemia (Acute) Transaminitis (Acute) Obesity (Acute) Cholelithiasis (Acute) Past Medical History Medical History Obesity Functional capacity: independent ambulation Patient : No Family History Family history of problems with anesthesia: No Surgical History Surgical History History of History of Problems with Anesthesia: No Social History Social History Patient Tobacco Use Status: Never used Tobacco service: No Meds Allergies Allergy/AdvReac Type Severity Reaction Status Date / Time No Known Allergies Allergy Verified 12/10/24 17:34 Active Medications: Current Medications Acetaminophen (Acetaminophen 325 Mg Tablet) 650 mg PO Q6H PRN PRN Reason: Pain, Mild 1-3,fever,headache Albuterol/Ipratropium (Albuterol/Iprat 2.5/0.5mg 3 Ml Ampul.Neb) 3 ml INHALE Q4H PRN PRN Reason: Shortness of Breath/Wheezing Calcium Carbonate (Calcium Carbonate 750 Mg Tab.Chew) 750 mg PO Q4H PRN PRN Reason: Heartburn Last Admin: 12/12/24 15:42 Dose: 750 mg Piperacillin Sod/Tazobactam (Sod 4.5 gm/ Sodium Chloride) 100 mls @ 200 mls/hr IV Q6H [facility] Last Admin: 12/14/24 11:33 Dose: 100 mls/hr Lactated Ringer's (Lr) 1,000 mls @ 100 mls/hr IVCONT .Q10H [facility] Last Admin: 12/14/24 04:38 Dose: 100 mls/hr Magnesium Hydroxide (Milk Of Magnesia 30 Ml Oral.Susp) 30 ml PO DAILY PRN PRN Reason: Constipation Magnesium Oxide (Magnesium Oxide 400 Mg Tablet) 400 mg PO BIDPC [facility] Last Admin: 12/14/24 11:32 Dose: 400 mg Melatonin (Melatonin 3 Mg Tablet) 6 mg PO BEDTIME PRN PRN Reason: Insomnia Ondansetron HCl (Ondansetron Hcl 4 Mg/2 Ml Vial) 4 mg IVPUSH Q6H PRN PRN Reason: Nausea and Vomiting Last Admin: 12/12/24 12:48 Dose: 4 mg Pantoprazole Sodium (Pantoprazole Sodium 40 Mg/10 Ml Vial) 40 mg IVPUSH DAILY@0630 [facility] Last Admin: 12/14/24 06:00 Dose: 40 mg Senna (Sennosides 8.6 Mg Tablet) 17.2 mg PO BEDTIME [facility] Last Admin: 12/13/24 21:18 Dose: Not Given Sodium Chloride (0.9 % Sodium Chloride Flush 3 Ml Syringe) 3 ml IVFLUSH QSHIFT [facility] Last Admin: 12/13/24 21:18 Dose: 3 ml Home Medications ?Medication ?Instructions ?Recorded ?Confirmed ?Last Taken ?Type No Known Home Meds 12/10/24 12/10/24 Un known History Exam Height,Weight and Vital Signs: Height 5 ft 3 in Weight 86.2 kg Last Vital Signs Temp 99.4 F 12/14/24 16:45 Pulse 56 12/14/24 16:45 Resp 16 12/14/24 16:45 BP 150/85 H 12/14/24 16:45 Pulse Ox 98 12/14/24 16:45 O2 Del Method Room Air 12/14/24 16:45 O2 Flow Rate 4 12/14/24 07:51 Pertinent Lab Results Pertinent Lab Results: Laboratory Tests 12/10/24 12/10/24 12/10/24 17:46 22:11 23:30 WBC 9.1 RBC 3.86 L Hgb 8.3 L Hct 27.6 L MCV 71.5 L MCH 21.5 L MCHC 30.1 L RDW 18.2 H Plt Count 394 MPV 9.2 L Immature Gran % (Auto) 0.3 Neut % (Auto) 77.3 H Lymph % (Auto) 12.5 L De[place] % (Auto) 8.5 Eos % (Auto) 1.1 Baso % (Auto) 0.3 Lymph # (Auto) 1.1 L De[place] # (Auto) 0.8 Eos # (Auto) 0.1 Baso # (Auto) 0.0 Abs Immat Gran (auto) 0.03 Absolute Neuts (auto) 7.0 Absolute Nucleated RBC 0.000 Nucleated RBC % (auto) 0.0 Hold Purple Top Sodium 137 Potassium 3.4 Chloride 108 Carbon Dioxide 21 L Anion Gap 11 L BUN 7 L Creatinine 0.61 Estim Creat Clear Calc 127.5 Estimated GFR > 60 Random Glucose 79 Lactic Acid 0.9 Calcium 8.9 Magnesium 2.0 Iron 17 L TIBC 336 % Saturation 5 L Unsat Iron Binding 319 Total Bilirubin 4.1 H Direct Bilirubin 3.1 H AST 118 H ALT 208 H Alkaline Phosphatase 271 H Lactate Dehydrogenase Troponin I High Sens Total Protein 8.0 Albumin 4.3 Triglycerides Cholesterol LDL Cholesterol, Calc HDL Cholesterol Lipase 1088 H TSH Beta HCG, Quant 4 Urine Color Dark Yellow Urine Appearance Clear Urine pH 5.5 Ur Specific [place] 1.010 Urine Protein Negative Urine Glucose (UA) Negative Urine Ketones 40 Urine Blood Small (1+) H Urine Nitrite Negative Ur Leukocyte Esterase Negative Urine RBC 3-5 H Urine WBC 0-5 Ur Squamous Epith Cells 0-2 Urine Bacteria None Seen Hyaline Casts 0-2 Urine Test Stool Occult Blood Blood Type O Positive Antibody Screen NEGATIVE 12/11/24 12/11/24 12/12/24 05:32 11:00 08:00 WBC 6.6 RBC 3.83 L Hgb 8.1 L Hct 27.7 L MCV 72.3 L MCH 21.1 L MCHC 29.2 L RDW 18.3 H Plt Count 382 MPV 9.9 Immature Gran % (Auto) 0.5 H Neut % (Auto) 70.4 Lymph % (Auto) 16.2 L Deuel % (Auto) 10.5 Eos % (Auto) 2.1 Baso % (Auto) 0.3 Lymph # (Auto) 1.1 L De[place] # (Auto) 0.7 Eos # (Auto) 0.1 Baso # (Auto) 0.0 Abs Immat Gran (auto) 0.03 Absolute Neuts (auto) 4.6 Absolute Nucleated RBC 0.000 Nucleated RBC % (auto) 0.0 Hold Purple Top SEE NOTE Sodium 138 137 Potassium 3.6 3.5 Chloride 107 108 Carbon Dioxide 22 23 Anion Gap 13 10 L BUN 6 L 6 L Creatinine 0.52 0.50 Estim Creat Clear Calc 149.6 155.6 Estimated GFR > 60 > 60 Random Glucose 101 131 H Lactic Acid Calcium 8.6 8.1 L Magnesium Iron TIBC % Saturation Unsat Iron Binding Total Bilirubin 4.0 H 3.9 H Direct Bilirubin AST 110 H 147 H ALT 186 H 196 H Alkaline Phosphatase 237 H 236 H Lactate Dehydrogenase Troponin I High Sens Total Protein 7.2 6.6 Albumin 3.9 3.4 L Triglycerides 55 Cholesterol 142 LDL Cholesterol, Calc 79 HDL Cholesterol 52 Lipase 578 H TSH 0.52 Beta HCG, Quant 3 Urine Color Urine Appearance Urine pH Ur Specific [place] Urine Protein Urine Glucose (UA) Urine Ketones Urine Blood Urine Nitrite Ur Leukocyte Esterase Urine RBC Urine WBC Ur Squamous Epith Cells Urine Bacteria Hyaline Casts Urine Test Stool Occult Blood NEGATIVE Blood Type Antibody Screen 12/13/24 12/13/24 12/13/24 08:08 16:16 17:06 WBC RBC Hgb Hct MCV MCH MCHC RDW Plt Count MPV Immature Gran % (Auto) Neut % (Auto) Lymph % (Auto) Deuel % (Auto) Eos % (Auto) Baso % (Auto) Lymph # (Auto) Deuel # (Auto) Eos # (Auto) Baso # (Auto) Abs Immat Gran (auto) Absolute Neuts (auto) Absolute Nucleated RBC Nucleated RBC % (auto) Hold Purple Top SEE NOTE SEE NOTE Sodium 140 141 Potassium 3.2 L 4.1 D Chloride 110 H 112 H Carbon Dioxide 23 19 L Anion Gap 10 L 14 BUN 5 L 5 L Creatinine 0.56 0.57 Estim Creat Clear Calc 138.9 136.5 Estimated GFR > 60 > 60 Random Glucose 102 80 Lactic Acid Calcium 8.0 L 8.2 L Magnesium 1.9 Iron TIBC % Saturation Unsat Iron Binding Total Bilirubin 1.5 H Direct Bilirubin AST 136 H ALT 201 H Alkaline Phosphatase 209 H Lactate Dehydrogenase 170 Troponin I High Sens < 2.7 Total Protein 6.7 Albumin 3.3 L Triglycerides Cholesterol LDL Cholesterol, Calc HDL Cholesterol Lipase TSH Beta HCG, Quant 3 Urine Color Urine Appearance Urine pH Ur Specific [place] Urine Protein Urine Glucose (UA) Urine Ketones Urine Blood Urine Nitrite Ur Leukocyte Esterase Urine RBC Urine WBC Ur Squamous Epith Cells Urine Bacteria Hyaline Casts Urine Test Stool Occult Blood Blood Type Antibody Screen 12/14/24 12/14/24 12/14/24 06:27 09:15 14:59 WBC RBC Hgb Hct MCV MCH MCHC RDW Plt Count MPV Immature Gran % (Auto) Neut % (Auto) Lymph % (Auto) Deuel % (Auto) Eos % (Auto) Baso % (Auto) Lymph # (Auto) Deuel # (Auto) Eos # (Auto) Baso # (Auto) Abs Immat Gran (auto) Absolute Neuts (auto) Absolute Nucleated RBC Nucleated RBC % (auto) Hold Purple Top SEE NOTE Sodium 141 Potassium 3.6 4.4 D Chloride 109 H Carbon Dioxide 22 Anion Gap 14 BUN 6 L Creatinine 0.58 Estim Creat Clear Calc 134.1 Estimated GFR > 60 Random Glucose 75 Lactic Acid Calcium 8.4 Magnesium 2.1 Iron TIBC % Saturation Unsat Iron Binding Total Bilirubin 1.3 H Direct Bilirubin 0.8 H AST 106 H ALT 163 H Alkaline Phosphatase 170 H Lactate Dehydrogenase Troponin I High Sens Total Protein 7.2 Albumin 4.2 Triglycerides Cholesterol LDL Cholesterol, Calc HDL Cholesterol Lipase TSH Beta HCG, Quant Urine Color Urine Appearance Urine pH Ur Specific [place] Urine Protein Urine Glucose (UA) Urine Ketones Urine Blood Urine Nitrite Ur Leukocyte Esterase Urine RBC Urine WBC Ur Squamous Epith Cells Urine Bacteria Hyaline Casts Urine Test NEGATIVE Stool Occult Blood Blood Type Antibody Screen Airway Mallampati Class: II TM Dist: <=3cm Neck ROM: Full Loose/Missing/Broken Teeth: No Heart: ok Lungs: ok Assessment and Plan Assessment Anesthesia Assessment: Anesthesia Plan Discussed and Chart Reviewed Final Anesthetic Review Family History of Problems with Anesthesia: No History of Problems with Anesthesia: No NPO: Yes ASA Class: II Final Preanesthetic Review: No Changes in Pt Med Stat, Meds/Allgs Chart Reviewed, Consent Obtained/Reviewed and Anes Risks/Benef Reviewed Patient Risk: Low Procedure Risk: Intermediate Anesthetic Plan Anesthetic Plan: GA and Agree w/ Assess. and Plan Disposition: Standard PACU
--- NOTE | 2024-12-14 18:52 | W.PM.OPN ---
Operative Note Operative Note Date of Service: 12/14/24 Narrative: Description:?Endoscopic retrograde cholangiopancreatography (ERCP) PROCEDURE:?Endoscopic retrograde cholangiopancreatography and sphincterotomy, with intra-operative cholangiogram INDICATION FOR THE PROCEDURE:?Patient with a history of choledocholithiasis and gallstone pancreatitis. MEDICATIONS:?General anesthesia. The risks of the procedure were made aware to the patient and consisted of medication reaction, bleeding, perforation, aspiration, and post ERCP pancreatitis. DESCRIPTION OF PROCEDURE:?After informed consent and appropriate sedation, the duodenoscope was inserted into the oropharynx, down the esophagus, and into the stomach. The scope was then advanced through the pylorus to the ampulla. The CBD was selectively cannulated with wire guided approach and a cholangiogram was obtained. The cholangiogram was formally interpreted and documented, and confirmed placement. No obvious filling defect was noted but the duct appeared dilated. A sphincterotomy was performed to facilitate ductal clearance and enlarge the orifice beyond standard cannulation. After this a extraction balloon was swept across the duct, no stone or sludge was noted. Completion balloon occluded cholangiography demonstrated no filling defects. The gallbladder did not fill. The procedure was then terminated. Intraop cholangiogram reivew and interpretation by performing physician: Mildly dilated CBD. CBD measured about 8 mm. No stricture or leak seen. FINDINGS: 1. dilated duct, no stones, proabbaly passed stones RECOMMENDATIONS: 1. clears and advance diet as tolerated. 2. f/u surgery
--- NOTE | 2024-12-14 19:32 | P.CDIM_ITS ---
PROVIDER RESPONSE TEXT: To clarify, the appropriate diagnosis supported by the clinical indicators: Hypokalemia QUERY TEXT: PHYSICIAN'S DOCUMENTATION REQUEST Date of Query: 12/14/2024 08:39 AM EDT Patient Name: Dilia Reardon Admit Date: 12/11/2024 Dear Opal Guerrero MD, A review of the medical record indicates additional documentation may be needed. Please review below and update the documentation accordingly. Clinical Indicators: potassium on 12/13/24: 3.2 Klor-Con 40 meq po once Based on the above, could you clarify the appropriate diagnosis, if significant, that supports the above abnormalities and additional evaluation, monitoring, and/or treatment rendered: Hypokalemia Labs indicate a diagnosis of (please specify) Other (explain) Clinically unable to determine (explain) Thank you, Delaney Murray RN Use of terms such as suspected, likely, concern for, or probable (associated with a specific diagnosis that is being evaluated, monitored, or treated as if it exists) are acceptable and can be coded in the inpatient setting, when documented at the time of discharge. Please use your independent medical judgment in providing your response. THIS QUERY IS PART OF THE PERMANENT MEDICAL RECORD
--- NOTE | 2024-12-14 19:32 | P.CDIM_ITS ---
PROVIDER RESPONSE TEXT: To clarify, the appropriate diagnosis supported by the clinical indicators: Hypomagnesium QUERY TEXT: PHYSICIAN'S DOCUMENTATION REQUEST Date of Query: 12/14/2024 08:34 AM EDT Patient Name: Dilia Reardon Admit Date: 12/11/2024 Dear Opal Guerrero MD, A review of the medical record indicates additional documentation may be needed. Please review below and update the documentation accordingly. Clinical Indicators: magnesium level on 12/13/24: 1.9 Mag-Ox 400 mg po BID Based on the above, could you clarify the appropriate diagnosis, if significant, that supports the above abnormalities and additional evaluation, monitoring, and/or treatment rendered: Hypomagnesium Labs indicate a diagnosis of (please specify) Other (explain) Clinically unable to determine (explain) Thank you, Delaney Murray RN Use of terms such as suspected, likely, concern for, or probable (associated with a specific diagnosis that is being evaluated, monitored, or treated as if it exists) are acceptable and can be coded in the inpatient setting, when documented at the time of discharge. Please use your independent medical judgment in providing your response. THIS QUERY IS PART OF THE PERMANENT MEDICAL RECORD
[2024-12-14] MEDS: 0.9 % Sodium Chloride Flush 3 ML SYRINGE IVFLUSH (20:49)
[2024-12-15] VITALS (28 sets, daily range): BP systolic 102–155; BP diastolic 58–88; PULSE 47–87; RESP 15–28; TEMP 36.4–37.2; O2SAT 87–100
[2024-12-15] MEDS: Lactated Ringers 1,000 ML 100 ML IVCONT ×2 (05:27→22:22)
--- NOTE | 2024-12-15 07:35 | P.PNGS_ITS ---
Subjective Subjective Date of Service: 12/15/24 <Erin Adams PA-C - Last Filed: 12/15/24 07:37> 12/15/24 <Sean Ventura MD - Last Filed: 12/15/24 09:08> Interval history: Feels well this morning, denies pain. Would like to proceed with lap con today. <Erin Adams PA-C - Last Filed: 12/15/24 07:37> Physical Exam 2 Vital Signs: Vital Signs: Last Vital Signs Temp 99 F 12/15/24 03:27 Pulse 51 12/15/24 03:27 Resp 18 12/15/24 03:27 BP 121/65 12/15/24 03:27 Pulse Ox 94 12/15/24 03:27 O2 Del Method Room Air 12/15/24 03:27 O2 Flow Rate 3 12/14/24 19:10 BMI result Body Mass Index 33.7 <Erin Adams PA-C - Last Filed: 12/15/24 07:37> Const: General: comfortable, no acute distress and alert <Erin Adams PA-C - Last Filed: 12/15/24 07:37> Resp: Effort & Inspection: normal respiratory effort <KATERYNA Temple Last Filed: 12/15/24 07:37> GI: Inspection: No distended <Erin Adams PA-C - Last Filed: 12/15/24 07:37> Palpation (GI): Soft to palpation and nontender <Erin Adams PA-C - Last Filed: 12/15/24 07:37> Skin: General skin exam: no rashes or lesions noted and no jaundice < KATERYNA Temple Last Filed: 12/15/24 07:37> Objective Data Active Medications Acetaminophen (Acetaminophen 325 Mg Tablet) 650 mg PO Q6H PRN PRN Reason: Pain, Mild 1-3,fever,headache Albuterol/Ipratropium (Albuterol/Iprat 2.5/0.5mg 3 Ml Ampul.Neb) 3 ml INHALE Q4H PRN PRN Reason: Shortness of Breath/Wheezing Calcium Carbonate (Calcium Carbonate 750 Mg Tab.Chew) 750 mg PO Q4H PRN PRN Reason: Heartburn Last Admin: 12/12/24 15:42 Dose: 750 mg Documented By: EDI Lactated Ringer's (Lr) 1,000 mls @ 100 mls/hr IVCONT .Q10H [facility] Last Admin: 12/15/24 05:27 Dose: 100 mls/hr Documented By: MICHAEL Piperacillin Sod/Tazobactam (Sod 4.5 gm/ Sodium Chloride) 100 mls @ 200 mls/hr IV Q6H [facility] Last Infusion: 12/15/24 05:17 Dose: Infused Documented By: MICHAEL Magnesium Hydroxide (Milk Of Magnesia 30 Ml Oral.Susp) 30 ml PO DAILY PRN PRN Reason: Constipation Magnesium Oxide (Magnesium Oxide 400 Mg Tablet) 400 mg PO BIDPC [facility] Last Admin: 12/14/24 20:49 Dose: 400 mg Documented By: MICHAEL Melatonin (Melatonin 3 Mg Tablet) 6 mg PO BEDTIME PRN PRN Reason: Insomnia Last Admin: 12/14/24 20:49 Dose: 6 mg Documented By: MICHAEL Naloxone HCl (Naloxone Hcl 0.4 Mg/Ml Vial) 0.04 mg IVPUSH Q5M PRN PRN Reason: Excessive sedation or RR < 8 Ondansetron HCl (Ondansetron Hcl 4 Mg/2 Ml Vial) 4 mg IVPUSH Q6H PRN PRN Reason: Nausea and Vomiting Last Admin: 12/12/24 12:48 Dose: 4 mg Documented By: EDI Pantoprazole Sodium (Pantoprazole Sodium 40 Mg/10 Ml Vial) 40 mg IVPUSH DAILY@0630 [facility] Last Admin: 12/15/24 05:27 Dose: 40 mg Documented By: MICHAEL Senna (Sennosides 8.6 Mg Tablet) 17.2 mg PO BEDTIME [facility] Last Admin: 12/14/24 20:49 Dose: Not Given Documented By: MICHAEL Non-Admin Reason: Patient Refused Sodium Chloride (0.9 % Sodium Chloride Flush 3 Ml Syringe) 3 ml IVFLUSH QSHIFT [facility] Last Admin: 12/14/24 20:49 Dose: 3 ml Documented By: SHEILA DayC - Last Filed: 12/15/24 07:37> Labs CBC & Chem 7: 12/15/24 07:47 12/15/24 07:47 <Erin Adams PA-C - Last Filed: 12/15/24 07:37> Labs: Laboratory Results - last 24 hr 12/14/24 12/14/24 12/14/24 06:27 09:15 09:49 Total Bilirubin 1.3 H Direct Bilirubin 0.8 H AST 106 H ALT 163 H Alkaline Phosphatase 170 H Total Protein 7.2 Albumin 4.2 Luteinizing Hormone 2.1 Urine Test NEGATIVE <Erin Adams PA-C - Last Filed: 12/15/24 07:37> Procedures Date of Service Date of Service: 12/15/24 <Erin Adams PA-C - Last Filed: 12/15/24 07:37> 12/15/24 <Sean Ventura MD - Last Filed: 12/15/24 09:08> Progress Note: A&P Assessment and plan (1) Transaminitis: Status: Acute <Erin Adams PA-C - Last Filed: 12/15/24 07:37> (2) Gallstone pancreatitis: Status: Acute <Erin Adams PA-C - Last Filed: 12/15/24 07:37> Assessment and Plan: S/p ERCP with sphincterotomy yesterday. Nonfilling of the GB. Feels well this morning and would like to proceed with lap con today. Cont NPO, IVF. Plan lap con,poss open today. <Erin Adams PA-C - Last Filed: 12/15/24 07:37> S/p ERCP with sphincterotomy yesterday. Nonfilling of the GB. Feels well this morning and would like to proceed with lap con today. Cont NPO, IVF. Plan lap con,poss open today. I agree with the above assessment and plan. Results of ERCP noted. I reviewed the procedure, risks, and alternatives in detail with the patient this morning. All her questions were answered to her apparent satisfaction. She consents to a laparoscopic or possible open cholecystectomy. <Sean Ventura MD - Last Filed: 12/15/24 09:08> Time Spent With Patient Time: Total time managing care of this patient today ____ minutes. <Erin Adams PA-C - Last Filed: 12/15/24 07:37> Quality Stroke Does the patient have a stroke diagnosis?: No <Erin Adams PA-C - Last Filed: 12/15/24 07:37> Reason for No Anti-thrombotic by Day Two: Contraindicated <Erin Adams PA-C - Last Filed: 12/15/24 07:37> VTE Prior VTE?: No <Erin Adams PA-C - Last Filed: 12/15/24 07:37> VTE Risk Level:: Medical - moderate - high <Erin Adams PA-C - Last Filed: 12/15/24 07:37> VTE Device Contraindication: N/A - Device Ordered <Erin Adams PA-C - Last Filed: 12/15/24 07:37> VTE Drug Contraindication: Treatment Not Indicated <Erin Adams PA-C - Last Filed: 12/15/24 07:37>
[2024-12-15 07:57] LABS: Hematocrit 24.0 % (37.0-47.0); Hemoglobin 7.2 g/dl (12.0-16.0); Mean Corpuscular HGB Conc 30.0 g/dl (31.0-35.0); Mean Corpuscular Hemoglobin 22.0 pg (27.0-33.0); Mean Corpuscular Volume 73.2 fL (80.0-98.0); NRBC Abs Auto 0.000 X10*3/uL (0.0-0.012); NRBC Pct Auto 0.0 /100WBC (0.0-0.2); Platelet Count 377 X10*3/uL (160-400); Red Blood Count 3.28 X10*6/uL (4.20-5.50); White Blood Count 6.2 X10*3/uL (4.8-10.8)
--- NOTE | 2024-12-15 08:04 | PC.NURSE ---
cbc redrawn since h&h low on . new type and screen redrawn also. hospitalist put in orders. h&h lower today at 7.2, 24. anesthesia made aware and ok'd to still proceed. pt being picked up now
[2024-12-15 08:09] LABS: Alanine Aminotransferase 154 U/L (0-31); Albumin Level 4.0 g/dL (3.5-5.0); Alkaline Phosphatase 188 U/L (39-117); Anion Gap 16 (12-20); Aspartate Amino Transferase 101 U/L (5-31); Blood Urea Nitrogen 9 mg/dL (9-16); Calcium 8.6 mg/dL (8.4-10.2); Carbon Dioxide 19 mmol/L (22-29); Chloride 109 mmol/L (96-108); Creatinine Clr Calc Pharmacy 121.6; Estimated Glomerular Filt Rate > 60; Potassium 3.9 mmol/L (3.3-5.1); Sodium 140 mmol/L (135-145); Total Protein 7.0 g/dL (6.5-8.0)
--- NOTE | 2024-12-15 09:14 | P.CONAN_ITS ---
HPI - Anesthesia Eval Consult details Narrative: [facility] Active Problems Active Problems: All Active Problems Cardiac arrhythmia (Acute) Gallstone pancreatitis (Acute) Iron deficiency anemia (Acute) Transaminitis (Acute) Obesity (Acute) Cholelithiasis (Acute) Past Medical History Medical History Obesity Functional capacity: independent ambulation Family History Family history of problems with anesthesia: No Surgical History Surgical History History of History of Problems with Anesthesia: No Social History Social History Patient Tobacco Use Status: Never used Tobacco service: No Meds Allergies Allergy/AdvReac Type Severity Reaction Status Date / Time No Known Allergies Allergy Verified 12/10/24 17:34 Active Medications: Current Medications Acetaminophen (Acetaminophen 325 Mg Tablet) 650 mg PO Q6H PRN PRN Reason: Pain, Mild 1-3,fever,headache Albuterol/Ipratropium (Albuterol/Iprat 2.5/0.5mg 3 Ml Ampul.Neb) 3 ml INHALE Q4H PRN PRN Reason: Shortness of Breath/Wheezing Calcium Carbonate (Calcium Carbonate 750 Mg Tab.Chew) 750 mg PO Q4H PRN PRN Reason: Heartburn Last Admin: 12/12/24 15:42 Dose: 750 mg Lactated Ringer's (Lr) 1,000 mls @ 100 mls/hr IVCONT .Q10H [facility] Last Infusion: 12/15/24 08:06 Dose: 0 mls/hr Piperacillin Sod/Tazobactam (Sod 4.5 gm/ Sodium Chloride) 100 mls @ 200 mls/hr IV Q6H [facility] Last Infusion: 12/15/24 05:17 Dose: Infused Magnesium Hydroxide (Milk Of Magnesia 30 Ml Oral.Susp) 30 ml PO DAILY PRN PRN Reason: Constipation Magnesium Oxide (Magnesium Oxide 400 Mg Tablet) 400 mg PO BIDPC [facility] Last Admin: 12/15/24 08:09 Dose: Not Given Melatonin (Melatonin 3 Mg Tablet) 6 mg PO BEDTIME PRN PRN Reason: Insomnia Last Admin: 12/14/24 20:49 Dose: 6 mg Naloxone HCl (Naloxone Hcl 0.4 Mg/Ml Vial) 0.04 mg IVPUSH Q5M PRN PRN Reason: Excessive sedation or RR < 8 Ondansetron HCl (Ondansetron Hcl 4 Mg/2 Ml Vial) 4 mg IVPUSH Q6H PRN PRN Reason: Nausea and Vomiting Last Admin: 12/12/24 12:48 Dose: 4 mg Pantoprazole Sodium (Pantoprazole Sodium 40 Mg/10 Ml Vial) 40 mg IVPUSH DAILY@0630 [facility] Last Admin: 12/15/24 05:27 Dose: 40 mg Senna (Sennosides 8.6 Mg Tablet) 17.2 mg PO BEDTIME [facility] Last Admin: 12/14/24 20:49 Dose: Not Given Sodium Chloride (0.9 % Sodium Chloride Flush 3 Ml Syringe) 3 ml IVFLUSH QSHIFT [facility] Last Admin: 12/15/24 08:09 Dose: Not Given Home Medications ?Medication ?Instructions ?Recorded ?Confirmed ?Last Taken ?Type No Known Home Meds 12/10/24 12/10/24 Un known History Exam Height,Weight and Vital Signs: Height 5 ft 3 in Weight 86.2 kg Last Vital Signs Temp 98.9 F 12/15/24 09:01 Pulse 67 12/15/24 09:01 Resp 15 12/15/24 09:01 BP 143/80 H 12/15/24 09:01 Pulse Ox 95 12/15/24 08:30 O2 Del Method Room Air 12/15/24 08:30 O2 Flow Rate 3 12/14/24 19:10 Pertinent Lab Results Pertinent Lab Results: Laboratory Tests 12/10/24 12/10/24 12/10/24 17:46 22:11 23:30 WBC 9.1 RBC 3.86 L Hgb 8.3 L Hct 27.6 L MCV 71.5 L MCH 21.5 L MCHC 30.1 L RDW 18.2 H Plt Count 394 MPV 9.2 L Immature Gran % (Auto) 0.3 Neut % (Auto) 77.3 H Lymph % (Auto) 12.5 L [place] % (Auto) 8.5 Eos % (Auto) 1.1 Baso % (Auto) 0.3 Lymph # (Auto) 1.1 L [place] # (Auto) 0.8 Eos # (Auto) 0.1 Baso # (Auto) 0.0 Abs Immat Gran (auto) 0.03 Absolute Neuts (auto) 7.0 Absolute Nucleated RBC 0.000 Nucleated RBC % (auto) 0.0 Hold Purple Top Sodium 137 Potassium 3.4 Chloride 108 Carbon Dioxide 21 L Anion Gap 11 L BUN 7 L Creatinine 0.61 Estim Creat Clear Calc 127.5 Estimated GFR > 60 Random Glucose 79 Lactic Acid 0.9 Calcium 8.9 Magnesium 2.0 Iron 17 L TIBC 336 % Saturation 5 L Unsat Iron Binding 319 Total Bilirubin 4.1 H Direct Bilirubin 3.1 H AST 118 H ALT 208 H Alkaline Phosphatase 271 H Lactate Dehydrogenase Troponin I High Sens Total Protein 8.0 Albumin 4.3 Triglycerides Cholesterol LDL Cholesterol, Calc HDL Cholesterol Lipase 1088 H TSH Luteinizing Hormone Beta HCG, Quant 4 Urine Color Dark Yellow Urine Appearance Clear Urine pH 5.5 Ur Specific [place] 1.010 Urine Protein Negative Urine Glucose (UA) Negative Urine Ketones 40 Urine Blood Small (1+) H Urine Nitrite Negative Ur Leukocyte Esterase Negative Urine RBC 3-5 H Urine WBC 0-5 Ur Squamous Epith Cells 0-2 Urine Bacteria None Seen Hyaline Casts 0-2 Urine Test Stool Occult Blood Blood Type O Positive Antibody Screen NEGATIVE Crossmatch 12/11/24 12/11/24 12/12/24 05:32 11:00 08:00 WBC 6.6 RBC 3.83 L Hgb 8.1 L Hct 27.7 L MCV 72.3 L MCH 21.1 L MCHC 29.2 L RDW 18.3 H Plt Count 382 MPV 9.9 Immature Gran % (Auto) 0.5 H Neut % (Auto) 70.4 Lymph % (Auto) 16.2 L [place] % (Auto) 10.5 Eos % (Auto) 2.1 Baso % (Auto) 0.3 Lymph # (Auto) 1.1 L [place] # (Auto) 0.7 Eos # (Auto) 0.1 Baso # (Auto) 0.0 Abs Immat Gran (auto) 0.03 Absolute Neuts (auto) 4.6 Absolute Nucleated RBC 0.000 Nucleated RBC % (auto) 0.0 Hold Purple Top SEE NOTE Sodium 138 137 Potassium 3.6 3.5 Chloride 107 108 Carbon Dioxide 22 23 Anion Gap 13 10 L BUN 6 L 6 L Creatinine 0.52 0.50 Estim Creat Clear Calc 149.6 155.6 Estimated GFR > 60 > 60 Random Glucose 101 131 H Lactic Acid Calcium 8.6 8.1 L Magnesium Iron TIBC % Saturation Unsat Iron Binding Total Bilirubin 4.0 H 3.9 H Direct Bilirubin AST 110 H 147 H ALT 186 H 196 H Alkaline Phosphatase 237 H 236 H Lactate Dehydrogenase Troponin I High Sens Total Protein 7.2 6.6 Albumin 3.9 3.4 L Triglycerides 55 Cholesterol 142 LDL Cholesterol, Calc 79 HDL Cholesterol 52 Lipase 578 H TSH 0.52 Luteinizing Hormone Beta HCG, Quant 3 Urine Color Urine Appearance Urine pH Ur Specific [place] Urine Protein Urine Glucose (UA) Urine Ketones Urine Blood Urine Nitrite Ur Leukocyte Esterase Urine RBC Urine WBC Ur Squamous Epith Cells Urine Bacteria Hyaline Casts Urine Test Stool Occult Blood NEGATIVE Blood Type Antibody Screen Crossmatch 12/13/24 12/13/24 12/13/24 08:08 16:16 17:06 WBC RBC Hgb Hct MCV MCH MCHC RDW Plt Count MPV Immature Gran % (Auto) Neut % (Auto) Lymph % (Auto) [place] % (Auto) Eos % (Auto) Baso % (Auto) Lymph # (Auto) [place] # (Auto) Eos # (Auto) Baso # (Auto) Abs Immat Gran (auto) Absolute Neuts (auto) Absolute Nucleated RBC Nucleated RBC % (auto) Hold Purple Top SEE NOTE SEE NOTE Sodium 140 141 Potassium 3.2 L 4.1 D Chloride 110 H 112 H Carbon Dioxide 23 19 L Anion Gap 10 L 14 BUN 5 L 5 L Creatinine 0.56 0.57 Estim Creat Clear Calc 138.9 136.5 Estimated GFR > 60 > 60 Random Glucose 102 80 Lactic Acid Calcium 8.0 L 8.2 L Magnesium 1.9 Iron TIBC % Saturation Unsat Iron Binding Total Bilirubin 1.5 H Direct Bilirubin AST 136 H ALT 201 H Alkaline Phosphatase 209 H Lactate Dehydrogenase 170 Troponin I High Sens < 2.7 Total Protein 6.7 Albumin 3.3 L Triglycerides Cholesterol LDL Cholesterol, Calc HDL Cholesterol Lipase TSH Luteinizing Hormone Beta HCG, Quant 3 Urine Color Urine Appearance Urine pH Ur Specific [place] Urine Protein Urine Glucose (UA) Urine Ketones Urine Blood Urine Nitrite Ur Leukocyte Esterase Urine RBC Urine WBC Ur Squamous Epith Cells Urine Bacteria Hyaline Casts Urine Test Stool Occult Blood Blood Type Antibody Screen Crossmatch 12/14/24 12/14/24 12/14/24 06:27 09:15 09:49 WBC RBC Hgb Hct MCV MCH MCHC RDW Plt Count MPV Immature Gran % (Auto) Neut % (Auto) Lymph % (Auto) [place] % (Auto) Eos % (Auto) Baso % (Auto) Lymph # (Auto) [place] # (Auto) Eos # (Auto) Baso # (Auto) Abs Immat Gran (auto) Absolute Neuts (auto) Absolute Nucleated RBC Nucleated RBC % (auto) Hold Purple Top SEE NOTE Sodium 141 Potassium 3.6 Chloride 109 H Carbon Dioxide 22 Anion Gap 14 BUN 6 L Creatinine 0.58 Estim Creat Clear Calc 134.1 Estimated GFR > 60 Random Glucose 75 Lactic Acid Calcium 8.4 Magnesium 2.1 Iron TIBC % Saturation Unsat Iron Binding Total Bilirubin 1.3 H Direct Bilirubin 0.8 H AST 106 H ALT 163 H Alkaline Phosphatase 170 H Lactate Dehydrogenase Troponin I High Sens Total Protein 7.2 Albumin 4.2 Triglycerides Cholesterol LDL Cholesterol, Calc HDL Cholesterol Lipase TSH Luteinizing Hormone 2.1 Beta HCG, Quant Urine Color Urine Appearance Urine pH Ur Specific [place] Urine Protein Urine Glucose (UA) Urine Ketones Urine Blood Urine Nitrite Ur Leukocyte Esterase Urine RBC Urine WBC Ur Squamous Epith Cells Urine Bacteria Hyaline Casts Urine Test NEGATIVE Stool Occult Blood Blood Type Antibody Screen Crossmatch 12/14/24 12/15/24 14:59 07:47 WBC 6.2 RBC 3.28 L Hgb 7.2 L Hct 24.0 L MCV 73.2 L MCH 22.0 L MCHC 30.0 L RDW 19.5 H Plt Count 377 MPV 10.1 Immature Gran % (Auto) Neut % (Auto) Lymph % (Auto) [place] % (Auto) Eos % (Auto) Baso % (Auto) Lymph # (Auto) [place] # (Auto) Eos # (Auto) Baso # (Auto) Abs Immat Gran (auto) Absolute Neuts (auto) Absolute Nucleated RBC 0.000 Nucleated RBC % (auto) 0.0 Hold Purple Top Sodium 140 Potassium 4.4 D 3.9 Chloride 109 H Carbon Dioxide 19 L Anion Gap 16 BUN 9 Creatinine 0.64 Estim Creat Clear Calc 121.6 Estimated GFR > 60 Random Glucose 73 Lactic Acid Calcium 8.6 Magnesium Iron TIBC % Saturation Unsat Iron Binding Total Bilirubin 1.2 H Direct Bilirubin AST 101 H ALT 154 H Alkaline Phosphatase 188 H Lactate Dehydrogenase Troponin I High Sens Total Protein 7.0 Albumin 4.0 Triglycerides Cholesterol LDL Cholesterol, Calc HDL Cholesterol Lipase TSH Luteinizing Hormone Beta HCG, Quant Urine Color Urine Appearance Urine pH Ur Specific [place] Urine Protein Urine Glucose (UA) Urine Ketones Urine Blood Urine Nitrite Ur Leukocyte Esterase Urine RBC Urine WBC Ur Squamous Epith Cells Urine Bacteria Hyaline Casts Urine Test Stool Occult Blood Blood Type O Positive Antibody Screen NEGATIVE Crossmatch See Detail Airway Mallampati Class: II TM Dist: >3cm Neck ROM: Full Heart: rrr Lungs: cta Assessment and Plan Assessment Anesthesia Assessment: Anesthesia Plan Discussed Final Anesthetic Review Family History of Problems with Anesthesia: No History of Problems with Anesthesia: No NPO: Yes ASA Class: III (prbc for low hb ) Final Preanesthetic Review: No Changes in Pt Med Stat, Meds/Allgs Chart Reviewed, Consent Obtained/Reviewed and Anes Risks/Benef Reviewed Patient Risk: Intermediate Procedure Risk: Intermediate Anesthetic Plan Anesthetic Plan: GA Disposition: Standard PACU
--- NOTE | 2024-12-15 09:19 | PC.NURSE ---
blood 1 unit ordered per anesthesia and hung at 908. ls clear throughout.
--- NOTE | 2024-12-15 09:28 | PC.NURSE ---
no rxn noted after 15 minute check for blood txn. ls remain clear.
--- NOTE | 2024-12-15 11:14 | PM.PNCARD ---
Subjective Subjective Date of Service: 12/15/24 Principal diagnosis: Tachycardia as well as pauses and AV Wenckebach Interval history: Patient not having any overnight AV Wenckebach or bradycardia or any episodes of fast heart rate or tachycardia. Echocardiogram showed normal LV ejection fraction. Underwent ERCP without any complications yesterday. Review of Systems Review of Systems Yes all other systems are reviewed and are negative Physical Exam Vital Signs: Last Vital Signs Temp 98.6 F 12/15/24 09:23 Pulse 73 12/15/24 09:23 Resp 15 12/15/24 09:23 BP 155/84 H 12/15/24 09:23 Pulse Ox 95 12/15/24 08:30 O2 Del Method Room Air 12/15/24 08:30 O2 Flow Rate 3 12/14/24 19:10 BMI result Body Mass Index 33.7 Const General: cooperative and comfortable Neck Neck: Yes trachea midline, Yes supple and Yes other Resp Effort & Inspection: normal respiratory effort Auscultation: clear to auscultation bilaterally Cardio Jugular venous distension: no JVD Palpation: normal PMI Rate: regular rate Rhythm: regular rhythm Heart sounds: S1 normal heart sound present and S2 normal heart sound present GI Auscultation: normal bowel sounds Neuro General: no focal motor deficits Objective Labs and Meds 12/15/24 07:47 12/15/24 07:47 Lab results: Laboratory Results - last 24 hr 12/14/24 12/14/24 12/15/24 09:49 14:59 07:47 WBC 6.2 RBC 3.28 L Hgb 7.2 L Hct 24.0 L MCV 73.2 L MCH 22.0 L MCHC 30.0 L RDW 19.5 H Plt Count 377 MPV 10.1 Absolute Nucleated RBC 0.000 Nucleated RBC % (auto) 0.0 Sodium 140 Potassium 4.4 D 3.9 Chloride 109 H Carbon Dioxide 19 L Anion Gap 16 BUN 9 Creatinine 0.64 Estim Creat Clear Calc 121.6 Estimated GFR > 60 Random Glucose 73 Calcium 8.6 Total Bilirubin 1.2 H AST 101 H ALT 154 H Alkaline Phosphatase 188 H Total Protein 7.0 Albumin 4.0 Luteinizing Hormone 2.1 Blood Type O Positive Antibody Screen NEGATIVE Crossmatch See Detail Imaging Radiologist's impression: Impressions Guidance Fluoroscopy 12/14/24 18:15 IMPRESSION: Fluoroscopy during procedure. Please see procedure report for additional information. Electronically signed by: Andre Dennis MD 12/15/2024 07:03 AM EDT RP Progress Note: A&P Assessment and plan (1) Cardiac arrhythmia: Status: Acute Assessment and Plan: No overnight significant bradycardia tachycardia. This could be all related to acute medical illness. At this point time no further medications for the same is required. Blood pressure is still elevated can consider non rate lowering medication such as amlodipine for blood pressure control. Will set up for outpatient Holter monitoring and follow-up after that. Thank you for allowing me to partake in his care. Will sign off the case Time Spent With Patient Time: Total time managing care of this patient today ____ minutes. Progress Note: Quality Stroke Does the patient have a stroke diagnosis?: No Reason for No Anti-thrombotic by Day Two: Contraindicated Procedures Date of Service Date of Service: 12/15/24
--- NOTE | 2024-12-15 11:24 | P.OP_ITS ---
Operative Note Operative Note Date of Service: 12/15/24 Narrative: Preoperative diagnosis: Acute cholecystitis, cholelithiasis, choledocholithiasis, gallstone pancreatitis Postoperative diagnosis: Same Procedure: Laparoscopic cholecystectomy Surgeon: Sean Ventura MD Document Analyst: JONI Temple Anesthesia: General endotracheal Indications for procedure: 39-year-old female patient presenting with complaints of epigastric and right upper quadrant abdominal pain found to have evidence of acute cholecystitis, cholelithiasis and choledocholithiasis by ultrasound and MRCP. She recently underwent ERCP yesterday with removal of 2 gallstones. She presents today for laparoscopic cholecystectomy. Operative findings: Distended gallbladder with thickened gallbladder wall and pericholecystic fluid most consistent with acute cholecystitis. Multiple gallstones were noted within the gallbladder extending into the infundibulum and proximal cystic duct. Cystic duct was noted to be dilated due to the multiple stones. Specimen: gallbladder Estimated blood loss: 20 mL Complications: None Procedure details: Patient was brought to the OR and placed in a supine position. After administering general anesthesia the patient's abdomen was prepped with ChloraPrep and draped in a sterile fashion. A surgical time-out was called the consent confirmed. Patient received preoperative antibiotics and Venodyne boots were in place. Local anesthesia consisting of 0.5% Sensorcaine without epinephrine was infiltrated in a periumbilical region. A 5 mm incision was made above the umbilicus in a transverse fashion. The Veress needle was then inserted while elevating abdominal cavity with towel clips. After positive drop test the abdomen was insufflated to a pressure of 15 mm of mercury. The Veress needle was then removed and a 5 mm trocar inserted. The camera was inserted in the abdomen explored. A 12 mm trocar was then placed in the epigastrium. Two 5 mm trocars placed in the right upper quadrant by the special education assistant. The patient was placed in reverse Tr endelenburg positioning and rotated to the left. The gallbladder was grasped with the fundus and retracted cephalad by the special education assistant. Adhesions were taken down off the body of the gallbladder to reveal the infundibulum. The infundibulum was then grasped and retracted away from the liver bed, also by the special education assistant. The Dolphin dissector was then used by the surgeon to dissect the peritoneum off the infundibulum to reveal the junction with the cystic duct. Cystic artery was noted slightly medial and posterior to the cystic duct. As noted above, the cystic duct was dilated with several stones within. After obtaining a critical view the cystic duct was doubly clipped using a large hemoclip and divided. The cystic artery was then doubly clipped and divided. The gallbladder was then dissected off the liver bed using electrocautery with an L hook. Hemostasis was assured all times using the electrocautery. When the gallbladder is completely dissected off the liver bed was placed in an Endo- Catch bag and brought out through the epigastric incision. The gallbladder was sent to pathology for further examination. The abdomen was then re-examined. The liver bed was irrigated and suctioned dry. No bleeding or bile leak could be identified. CO2 was then evacuated and all trocars removed. Fascia was closed at the epigastric incision using a [id number] Polysorb suture. Skin was closed in all incisions using a subcuticular 4 0 Polysorb suture by both the surgeon and special education assistant. Two simple interrupted 4-0 Polysorb sutures were placed in skin at the umbilicus to achieve hemostasis at the umbilical incision. Sterile dressings consisting of Steri- Strips, 2 x 2 gauze, and Tegaderm were then applied. The patient tolerated the procedure well. Sponge instrument and needle counts reported as correct. The patient was transferred to PACU in stable condition.
[2024-12-15 12:36] LABS: ABG HCO3 19 mmol/L (22-26); ABG O2 % Saturation 88.0 %
[2024-12-15] MEDS: Albuterol Sulfate (0.083%) 2.5 MG/3 ML VIAL.NEB INHALE (13:13)
--- NOTE | 2024-12-15 14:15 | HO.POSTANES ---
Post Anesthesia Evaluation Post Anesthesia Evaluation Date of Service: 12/15/24 Vital Signs: Vital Signs Temp Pulse Resp BP Pulse Ox O2 Del Method O2 Flow Rate 12/15/24 13:45 71 21 H 126/76 97 CPAP 35 12/15/24 13:31 70 22 H 119/73 100 CPAP 35 12/15/24 13:26 28 H 12/15/24 13:16 26 H 12/15/24 13:15 71 25 H 125/77 98 CPAP 35 12/15/24 13:00 63 26 H 145/85 H 97 CPAP 12/15/24 12:45 63 26 H 93 Simple Mask 5 12/15/24 12:30 66 25 H 147/84 H 91 L Simple Mask 5 12/15/24 12:20 97.7 F 66 25 H 147/84 H 93 Simple Mask 5 12/15/24 12:15 65 23 H 141/81 H 93 Simple Mask 15 12/15/24 12:00 66 26 H 146/88 H 87 L Simple Mask 15 12/15/24 11:45 70 26 H 145/85 H 89 L Simple Mask 15 12/15/24 11:40 63 27 H 143/79 H 89 L Simple Mask 15 12/15/24 11:35 63 26 H 147/82 H 88 L Simple Mask 15 12/15/24 11:30 97.6 F 71 24 H 126/79 90 L Non-Rebreather Mask 15 12/15/24 09:23 98.6 F 73 15 155/84 H 12/15/24 09:01 98.9 F 67 15 143/80 H 12/15/24 08:30 98.9 F 67 15 143/80 H 95 Room Air 12/15/24 08:00 97.8 F 47 L 18 123/70 93 Room Air 12/15/24 03:27 99 F 51 18 121/65 94 Room Air FiO2 12/15/24 13:45 12/15/24 13:31 97 12/15/24 13:26 12/15/24 13:16 12/15/24 13:15 97 12/15/24 13:00 35 12/15/24 12:45 12/15/24 12:30 12/15/24 12:20 12/15/24 12:15 12/15/24 12:00 12/15/24 11:45 12/15/24 11:40 12/15/24 11:35 12/15/24 11:30 12/15/24 09:23 12/15/24 09:01 12/15/24 08:30 12/15/24 08:00 12/15/24 03:27 Anesthesia: General Endotracheal-GETA Mental Status: Awake Pain Control: Satisfactory Nausea/Vomiting: None Hydration: Adequate Anesthesia-Related Issues: No Anes. Related Issues
--- NOTE | 2024-12-15 14:55 | HO.PM.IMPN ---
Subjective Subjective Date of Service: 12/15/24 Interval History: sleepy, no complaints required cpap post extubation Physical Exam Vital Signs: Vital Signs: Last Vital Signs Temp 98.9 F 12/15/24 14:47 Pulse 77 12/15/24 14:47 Resp 20 12/15/24 14:47 BP 136/82 12/15/24 14:47 Pulse Ox 95 12/15/24 14:47 O2 Del Method Room Air 12/15/24 14:47 O2 Flow Rate 35 12/15/24 14:44 FiO2 97 12/15/24 13:31 BMI result Body Mass Index 33.7 alert, comfotable, lungs clear Objective Data Active Medications Acetaminophen (Acetaminophen 325 Mg Tablet) 650 mg PO Q6H PRN PRN Reason: Pain, Mild 1-3,fever,headache Albuterol/Ipratropium (Albuterol/Iprat 2.5/0.5mg 3 Ml Ampul.Neb) 3 ml INHALE Q4H PRN PRN Reason: Shortness of Breath/Wheezing Albuterol/Ipratropium (Albuterol/Iprat 2.5/0.5mg 3 Ml Ampul.Neb) 3 ml INHALE ONCE PRN PRN Reason: Bronchospasm/wheezing Stop: 12/15/24 18:01 Calcium Carbonate (Calcium Carbonate 750 Mg Tab.Chew) 750 mg PO Q4H PRN PRN Reason: Heartburn Last Admin: 12/12/24 15:42 Dose: 750 mg Documented By: EDI Fentanyl (Fentanyl Citrate/Pf 100 Mcg/2 Ml Vial) 50 mcg IVPUSH Q5M PRN PRN Reason: Pain, Moderate to Severe (Pain Scale 4-10) Stop: 12/15/24 15:15 Last Admin: 12/15/24 13:26 Dose: 50 mcg Documented By: VERENA Lactated Ringer's (Lr) 1,000 mls @ 100 mls/hr IVCONT .Q10H [facility] Last Infusion: 12/15/24 08:06 Dose: 0 mls/hr Documented By: DAYANA Piperacillin Sod/Tazobactam (Sod 4.5 gm/ Sodium Chloride) 100 mls @ 200 mls/hr IV Q6H [facility] Last Infusion: 12/15/24 05:17 Dose: Infused Documented By: MICHAEL Magnesium Hydroxide (Milk Of Magnesia 30 Ml Oral.Susp) 30 ml PO DAILY PRN PRN Reason: Constipation Magnesium Oxide (Magnesium Oxide 400 Mg Tablet) 400 mg PO BIDPC [facility] Last Admin: 12/15/24 08:09 Dose: Not Given Documented By: DAYANA Non-Admin Reason: Off Unit: Surgery Melatonin (Melatonin 3 Mg Tablet) 6 mg PO BEDTIME PRN PRN Reason: Insomnia Last Admin: 12/14/24 20:49 Dose: 6 mg Documented By: MICHAEL Naloxone HCl (Naloxone Hcl 0.4 Mg/Ml Vial) 0.04 mg IVPUSH Q5M PRN PRN Reason: Excessive sedation or RR < 8 Naloxone HCl (Naloxone Hcl 0.4 Mg/Ml Vial) 0.04 mg IVPUSH Q5M PRN PRN Reason: Excessive sedation or RR < 8 Ondansetron HCl (Ondansetron Hcl 4 Mg/2 Ml Vial) 4 mg IVPUSH Q6H PRN PRN Reason: Nausea and Vomiting Last Admin: 12/12/24 12:48 Dose: 4 mg Documented By: EDI Ondansetron HCl (Ondansetron Hcl 4 Mg/2 Ml Vial) 4 mg IVPUSH ONCE PRN PRN Reason: Nausea and Vomiting Stop: 12/15/24 15:16 Pantoprazole Sodium (Pantoprazole Sodium 40 Mg/10 Ml Vial) 40 mg IVPUSH DAILY@0630 [facility] Last Admin: 12/15/24 05:27 Dose: 40 mg Documented By: MICHAEL Senna (Sennosides 8.6 Mg Tablet) 17.2 mg PO BEDTIME [facility] Last Admin: 12/14/24 20:49 Dose: Not Given Documented By: MICHAEL Non-Admin Reason: Patient Refused Sodium Chloride (0.9 % Sodium Chloride Flush 3 Ml Syringe) 3 ml IVFLUSH QSHIFT [facility] Last Admin: 12/15/24 08:09 Dose: Not Given Documented By: DAYANA Non-Admin Reason: Previously Administered Labs 12/15/24 07:47 12/15/24 07:47 Labs: Laboratory Results - last 24 hr 12/14/24 12/15/24 12/15/24 09:49 07:47 12:32 MCV 73.2 L MCH 22.0 L MCHC 30.0 L RDW 19.5 H Plt Count 377 MPV 10.1 Absolute Nucleated RBC 0.000 Nucleated RBC % (auto) 0.0 O2 Saturation 88.0 ABG pH at Pt Temp 7.38 ABG pCO2 at Pt Temp 31 L ABG pO2 at Pt Temp 65 L ABG HCO3 19 L ABG Base Excess (Actual) -4.9 Anion Gap 16 Estim Creat Clear Calc 121.6 Estimated GFR > 60 Random Glucose 73 Calcium 8.6 Total Bilirubin 1.2 H AST 101 H ALT 154 H Alkaline Phosphatase 188 H Total Protein 7.0 Albumin 4.0 Luteinizing Hormone 2.1 Blood Type O Positive Antibody Screen NEGATIVE Crossmatch See Detail Assessment and Plan (1) Cardiac arrhythmia: Status: Acute Plan 39F PMH presented with abd pain Acute cholecystitis and choledocholithiasis as well as gallstone pancreatitis Status post ERCP, on IV Zosyn, pain improved, underwent cholecystectomy today Bradycardia with Mala Cardiology appreciated, monitor electrolytes, monitor tele Anemia Status post IV iron, monitor BhCG 4 unlikely, check LH to rule out menopause DVT prophylaxis-mechanical due to surgery Full code reason for continued hospitalization:surgery Quality Stroke Does the patient have a stroke diagnosis?: No Reason for No Anti-thrombotic by Day Two: Contraindicated VTE Prior VTE?: No VTE Risk Level:: Medical - moderate - high VTE Device Contraindication: N/A - Device Ordered VTE Drug Contraindication: Treatment Not Indicated
--- NOTE | 2024-12-15 15:27 | PC.NURSE ---
patient returned to med/tele unit. no IV's running. Safety measures in place, call [place] within reach.
[2024-12-15] MEDS: 0.9 % Sodium Chloride Flush 3 ML SYRINGE IVFLUSH (15:39)
[2024-12-15] MEDS: oxyCODONE HCl Immed Release 5 MG TABLET PO (15:40)
[2024-12-15 18:58] LABS: ABG Refer to POC result
[2024-12-16 03:31] VITALS: BP 128/65; RESP 18; TEMP 36.4; O2SAT 94
[2024-12-16] MEDS: oxyCODONE HCl Immed Release 5 MG TABLET PO (03:31)
[2024-12-16 04:00] VITALS: PULSE 50
--- NOTE | 2024-12-16 06:57 | P.PNGS_ITS ---
Subjective Subjective Date of Service: 12/16/24 <Jm Wilkinson - Last Filed: 12/16/24 09:29> 12/16/24 <Erin Adams PA-C - Last Filed: 12/16/24 08:18> 12/16/24 <Sean Ventura MD - Last Filed: 12/16/24 11:38> Interval history: Patient was hypoxic in the PACU and placed on CPAP yesterday, then transitioned to nasal cannula overnight and SpO2 is now 94 on room air. Bradycardic in the low 50s overnight and now 57 this morning. She reports 4/10 abdominal pain this morning on oxycodone and also continued abdominal bloating. No bowel movements yet but reports some flatus. She denies nausea/vomiting and has tolerated PO food and medications well. Also denies fever or chills. She has not been using the incentive spirometry or ambulating on her own. <Jm Wilkinson - Last Filed: 12/16/24 09:29> Physical Exam 2 Vital Signs: Vital Signs: Last Vital Signs Temp 97.6 F 12/16/24 03:31 Pulse 50 12/16/24 04:00 Resp 18 12/16/24 03:31 BP 128/65 12/16/24 03:31 Pulse Ox 94 12/16/24 03:31 O2 Del Method Nasal Cannula 12/16/24 03:31 O2 Flow Rate 1 12/16/24 03:31 FiO2 97 12/15/24 13:31 BMI result Body Mass Index 33.7 <Jm Wilkinson - Last Filed: 12/16/24 09:29> Const: General: comfortable, no acute distress and alert <Erin Adams PA-C - Last Filed: 12/16/24 08:18> Orientation/consciousness: patient oriented x3 <Erin Adams PA-C - Last Filed: 12/16/24 08:18> Resp: Effort & Inspection: normal respiratory effort and able to speak in complete sentences <Jm Tinajero Last Filed: 12/16/24 09:29> Effort & Inspection: normal respiratory effort, able to speak in complete sentences and not tachypneic <KATERYNA Temple Last Filed: 12/16/24 08:18> Auscultation: clear to auscultation bilaterally <Jm Wilkinson Last Filed: 12/16/24 09:29> Cardio: Rate: regular rate <Jmflory Wilkinson Last Filed: 12/16/24 09:29> Rhythm: regular rhythm <Jmflory Wilkinson Last Filed: 12/16/24 09:29> GI: Other: abd soft dressings clean and intact mild incisional tenderness <Erin Adams PA-C - Last Filed: 12/16/24 08:18> Percussion: Yes normal to percussion <KATERYNA Temple Last Filed: 12/16/24 08:18> Skin: General skin exam: no rashes or lesions noted and no jaundice < KATERYNA Temple Last Filed: 12/16/24 08:18> Neuro: General: patient oriented x3 and moves all extremities <Erin Adams PA-C Last Filed: 12/16/24 08:18> Extrem: Right lower extremity: no edema <Jm Wilkinson Last Filed: 12/16/24 09:29> Left lower extremity: no edema <Jm Wilkinson Last Filed: 12/16/24 09:29> Objective Data Active Medications Acetaminophen (Acetaminophen 325 Mg Tablet) 650 mg PO Q6H PRN PRN Reason: Pain, Mild 1-3,fever,headache Albuterol/Ipratropium (Albuterol/Iprat 2.5/0.5mg 3 Ml Ampul.Neb) 3 ml INHALE Q4H PRN PRN Reason: Shortness of Breath/Wheezing Calcium Carbonate (Calcium Carbonate 750 Mg Tab.Chew) 750 mg PO Q4H PRN PRN Reason: Heartburn Last Admin: 12/12/24 15:42 Dose: 750 mg Documented By: EDI Hydromorphone HCl (Hydromorphone Hcl 0.5 Mg/0.5 Ml Syringe) 0.5 mg IVPUSH Q3H PRN; Protocol PRN Reason: Pain, Severe (Pain Scale 7-10) Last Admin: 12/15/24 22:08 Dose: 0.5 mg Documented By: JUVENTINO Lactated Ringer's (Lr) 1,000 mls @ 100 mls/hr IVCONT .Q10H [facility] Last Admin: 12/15/24 22:22 Dose: 100 mls/hr Documented By: JUVENTINO Piperacillin Sod/Tazobactam (Sod 4.5 gm/ Sodium Chloride) 100 mls @ 200 mls/hr IV Q6H [facility] Last Admin: 12/16/24 03:33 Dose: 200 mls/hr Documented By: JUVENTINO Magnesium Hydroxide (Milk Of Magnesia 30 Ml Oral.Susp) 30 ml PO DAILY PRN PRN Reason: Constipation Magnesium Oxide (Magnesium Oxide 400 Mg Tablet) 400 mg PO BIDPC [facility] Last Admin: 12/15/24 15:39 Dose: 400 mg Documented By: DAYANA Melatonin (Melatonin 3 Mg Tablet) 6 mg PO BEDTIME PRN PRN Reason: Insomnia Last Admin: 12/14/24 20:49 Dose: 6 mg Documented By: MICHAEL Naloxone HCl (Naloxone Hcl 0.4 Mg/Ml Vial) 0.04 mg IVPUSH Q5M PRN PRN Reason: Excessive sedation or RR < 8 Naloxone HCl (Naloxone Hcl 0.4 Mg/Ml Vial) 0.04 mg IVPUSH Q5M PRN PRN Reason: Excessive sedation or RR < 8 Ondansetron HCl (Ondansetron Hcl 4 Mg/2 Ml Vial) 4 mg IVPUSH Q6H PRN PRN Reason: Nausea and Vomiting Last Admin: 12/12/24 12:48 Dose: 4 mg Documented By: EDI Oxycodone HCl (Oxycodone Hcl Immed Release 5 Mg Tablet) 5 mg PO Q6H PRN PRN Reason: Pain, Moderate(Pain Scale 4-6) Last Admin: 12/16/24 03:31 Dose: 5 mg Documented By: JUVENTINO Pantoprazole Sodium (Pantoprazole Sodium 40 Mg/10 Ml Vial) 40 mg IVPUSH DAILY@0630 [facility] Last Admin: 12/16/24 03:33 Dose: 40 mg Documented By: JUVENTINO Senna (Sennosides 8.6 Mg Tablet) 17.2 mg PO BEDTIME [facility] Last Admin: 12/15/24 22:14 Dose: Not Given Documented By: JUVENTINO Non-Admin Reason: Patient Refused Sodium Chloride (0.9 % Sodium Chloride Flush 3 Ml Syringe) 3 ml IVFLUSH QSHIFT JAY Last Admin: 12/16/24 01:50 Dose: Not Given Documented By: JUVENTINO Non-Admin Reason: IV Running <Jm Wilkinson - Last Filed: 12/16/24 09:29> Labs CBC & Chem 7: 12/16/24 06:51 12/16/24 06:51 <Jm Wilkinson - Last Filed: 12/16/24 09:29> Labs: Laboratory Results - last 24 hr 12/15/24 12/15/24 07:47 12:32 MCV 73.2 L MCH 22.0 L MCHC 30.0 L RDW 19.5 H Plt Count 377 MPV 10.1 Absolute Nucleated RBC 0.000 Nucleated RBC % (auto) 0.0 O2 Saturation 88.0 ABG pH at Pt Temp 7.38 ABG pCO2 at Pt Temp 31 L ABG pO2 at Pt Temp 65 L ABG HCO3 19 L ABG Base Excess (Actual) -4.9 Anion Gap 16 Estim Creat Clear Calc 121.6 Estimated GFR > 60 Random Glucose 73 Calcium 8.6 Total Bilirubin 1.2 H AST 101 H ALT 154 H Alkaline Phosphatase 188 H Total Protein 7.0 Albumin 4.0 Blood Type O Positive Antibody Screen NEGATIVE Crossmatch See Detail <Jm Wilkinson - Last Filed: 12/16/24 09:29> Procedures Date of Service Date of Service: 12/16/24 <Jm Wilkinson - Last Filed: 12/16/24 09:29> 12/16/24 <Erin Adams PA-C - Last Filed: 12/16/24 08:18> 12/16/24 <Sean Ventura MD - Last Filed: 12/16/24 11:38> Progress Note: A&P Assessment and plan (1) Gallstone pancreatitis: Status: Acute <Jm Wilkinson - Last Filed: 12/16/24 09:29> Assessment and Plan: Dilia Reardon is a 39-year-old female who underwent laproscopic cholecystectomy on 12/15/24. <Jm Wilkinson - Last Filed: 12/16/24 09:29> Dilia Reardon is a 39-year-old female who underwent laproscopic cholecystectomy on 12/15/24. Agree with above assessment. Patient admitted for gallstone pancreatitis, underwent ERCP, sphincterotomy on 12/14/24 for multiple CBD stones. Patient now POD #1 s/p lap con for gallstone pancreatitis. Required CPAP post operatively for hypoxia. CXR post op showed atelectasis. Now mid 90s on room air. Denies shortness of breath. Has not been OOB yet or used incentive spirometer. VSS. Abd exam is benign with clean dressings, appropriate post op tenderness. Encouraged OOB/ambulation and increasing activity today. Educated on and encouraged incentive spirometer 10x/hr. If remains medically stable, ok for discharge later today from surgical standpoint with follow up in the office in 1 week. < Erin Adams PA-C - Last Filed: 12/16/24 08:18> Dilia Reardon is a 39-year-old female who underwent laproscopic cholecystectomy on 12/15/24. Agree with above assessment. Patient admitted for gallstone pancreatitis, underwent ERCP, sphincterotomy on 12/14/24 for multiple CBD stones. Patient now POD #1 s/p lap con for gallstone pancreatitis. Required CPAP post operatively for hypoxia. CXR post op showed atelectasis. Now mid 90s on room air. Denies shortness of breath. Has not been OOB yet or used incentive spirometer. VSS. Abd exam is benign with clean dressings, appropriate post op tenderness. Encouraged OOB/ambulation and increasing activity today. Educated on and encouraged incentive spirometer 10x/hr. If remains medically stable, ok for discharge later today from surgical standpoint with follow up in the office in 1 week. Patient seen and examined. I agree with the above assessment and plan. H/H improved today after transfusion. Patient feels improved, tolerated solid food today. Respiratory status improved. Agree with discharge to home from surgical standpoint. <Sean Ventura MD - Last Filed: 12/16/24 11:38> Time Spent With Patient Time: Total time managing care of this patient today ____ minutes. <Jm Wilkinson - Last Filed: 12/16/24 09:29> Quality Stroke Does the patient have a stroke diagnosis?: No <Jm Wilkinson - Last Filed: 12/16/24 09:29> Reason for No Anti-thrombotic by Day Two: Contraindicated <Jm Wilkinson - Last Filed: 12/16/24 09:29> VTE Prior VTE?: No <Jm Wilkinson - Last Filed: 12/16/24 09:29> VTE Risk Level:: Medical - moderate - high <Jm Wilkinson - Last Filed: 12/16/24 09:29> VTE Device Contraindication: N/A - Device Ordered <Jm Wilkinson - Last Filed: 12/16/24 09:29> VTE Drug Contraindication: Treatment Not Indicated <Jm Wilkinson - Last Filed: 12/16/24 09:29>
[2024-12-16 06:59] LABS: MANUAL DIFF FLAG NO
[2024-12-16 07:02] LABS: Hematocrit 27.3 % (37.0-47.0); Hemoglobin 8.3 g/dl (12.0-16.0); Imm Gran Abs Auto 0.02 X10*3/uL (0.00-0.03); Imm Gran Pct Auto 0.3 % (0.0-0.4); Lymphocytes Absolute Auto 1.4 X10*3/uL (1.2-4.9); Mean Corpuscular HGB Conc 30.4 g/dl (31.0-35.0); Mean Corpuscular Hemoglobin 22.6 pg (27.0-33.0); Mean Corpuscular Volume 74.4 fL (80.0-98.0); NRBC Abs Auto 0.000 X10*3/uL (0.0-0.012); NRBC Pct Auto 0.0 /100WBC (0.0-0.2); Platelet Count 376 X10*3/uL (160-400); Red Blood Count 3.67 X10*6/uL (4.20-5.50); White Blood Count 6.7 X10*3/uL (4.8-10.8)
[2024-12-16 07:14] LABS: Anion Gap 13 (12-20); Blood Urea Nitrogen 10 mg/dL (9-16); Calcium 8.4 mg/dL (8.4-10.2); Carbon Dioxide 23 mmol/L (22-29); Chloride 108 mmol/L (96-108); Creatinine Clr Calc Pharmacy 127.5; Estimated Glomerular Filt Rate > 60; Potassium 3.6 mmol/L (3.3-5.1); Sodium 140 mmol/L (135-145)
[2024-12-16 07:38] VITALS: BP 133/68; PULSE 57; RESP 16; TEMP 36.1; O2SAT 94
[2024-12-16] MEDS: 0.9 % Sodium Chloride Flush 3 ML SYRINGE IVFLUSH (08:28)
[2024-12-16] MEDS: Lactated Ringers 1,000 ML 100 ML IVCONT (08:28)
--- NOTE | 2024-12-16 09:54 | HO.POSTANES ---
Post Anesthesia Evaluation Post Anesthesia Evaluation Date of Service: 12/15/24 Vital Signs: Vital Signs Temp Pulse Resp BP Pulse Ox O2 Del Method O2 Flow Rate 12/16/24 07:38 97.0 F 57 16 133/68 94 Room Air 12/16/24 04:00 50 12/16/24 03:31 97.6 F 18 128/65 94 Nasal Cannula 1 Anesthesia: General Mental Status: Awake Pain Control: Satisfactory Nausea/Vomiting: None Hydration: Adequate Anesthesia-Related Issues: No Anes. Related Issues
--- NOTE | 2024-12-16 10:55 | HO.PM.IMPN ---
Subjective Subjective Date of Service: 12/16/24 Interval History: tolerating po Physical Exam Vital Signs: Vital Signs: Last Vital Signs Temp 97.0 F 12/16/24 07:38 Pulse 57 12/16/24 07:38 Resp 16 12/16/24 07:38 BP 133/68 12/16/24 07:38 Pulse Ox 94 12/16/24 07:38 O2 Del Method Room Air 12/16/24 07:38 O2 Flow Rate 1 12/16/24 03:31 FiO2 97 12/15/24 13:31 BMI result Body Mass Index 33.7 Const: General: comfortable, no acute distress and alert Orientation/consciousness: patient oriented x3 Resp: Effort & Inspection: normal respiratory effort, able to speak in complete sentences and not tachypneic Auscultation: clear to auscultation bilaterally Cardio: Rate: regular rate Rhythm: regular rhythm GI: Other: abd soft dressings clean and intact mild incisional tenderness Percussion: Yes normal to percussion Skin: General skin exam: no rashes or lesions noted and no jaundice Neuro: General: patient oriented x3 and moves all extremities Extrem: Right lower extremity: no edema Left lower extremity: no edema Objective Data Active Medications Acetaminophen (Acetaminophen 325 Mg Tablet) 650 mg PO Q6H PRN PRN Reason: Pain, Mild 1-3,fever,headache Last Admin: 12/16/24 08:27 Dose: 650 mg Documented By: DAYANA Albuterol/Ipratropium (Albuterol/Iprat 2.5/0.5mg 3 Ml Ampul.Neb) 3 ml INHALE Q4H PRN PRN Reason: Shortness of Breath/Wheezing Calcium Carbonate (Calcium Carbonate 750 Mg Tab.Chew) 750 mg PO Q4H PRN PRN Reason: Heartburn Last Admin: 12/12/24 15:42 Dose: 750 mg Documented By: EDI Hydromorphone HCl (Hydromorphone Hcl 0.5 Mg/0.5 Ml Syringe) 0.5 mg IVPUSH Q3H PRN; Protocol PRN Reason: Pain, Severe (Pain Scale 7-10) Last Admin: 12/15/24 22:08 Dose: 0.5 mg Documented By: JUVENTINO Lactated Ringer's (Lr) 1,000 mls @ 100 mls/hr IVCONT .Q10H [facility] Last Admin: 12/16/24 08:28 Dose: 100 mls/hr Documented By: DAYANA Piperacillin Sod/Tazobactam (Sod 4.5 gm/ Sodium Chloride) 100 mls @ 200 mls/hr IV Q6H [facility] Last Infusion: 12/16/24 09:08 Dose: Infused Documented By: DAYANA Magnesium Hydroxide (Milk Of Magnesia 30 Ml Oral.Susp) 30 ml PO DAILY PRN PRN Reason: Constipation Magnesium Oxide (Magnesium Oxide 400 Mg Tablet) 400 mg PO BIDPC [facility] Last Admin: 12/16/24 08:27 Dose: 400 mg Documented By: DAYANA Melatonin (Melatonin 3 Mg Tablet) 6 mg PO BEDTIME PRN PRN Reason: Insomnia Last Admin: 12/14/24 20:49 Dose: 6 mg Documented By: MICHAEL Naloxone HCl (Naloxone Hcl 0.4 Mg/Ml Vial) 0.04 mg IVPUSH Q5M PRN PRN Reason: Excessive sedation or RR < 8 Naloxone HCl (Naloxone Hcl 0.4 Mg/Ml Vial) 0.04 mg IVPUSH Q5M PRN PRN Reason: Excessive sedation or RR < 8 Ondansetron HCl (Ondansetron Hcl 4 Mg/2 Ml Vial) 4 mg IVPUSH Q6H PRN PRN Reason: Nausea and Vomiting Last Admin: 12/12/24 12:48 Dose: 4 mg Documented By: EDI Oxycodone HCl (Oxycodone Hcl Immed Release 5 Mg Tablet) 5 mg PO Q6H PRN PRN Reason: Pain, Moderate(Pain Scale 4-6) Last Admin: 12/16/24 03:31 Dose: 5 mg Documented By: JUVENTINO Pantoprazole Sodium (Pantoprazole Sodium 40 Mg/10 Ml Vial) 40 mg IVPUSH DAILY@0630 [facility] Last Admin: 12/16/24 03:33 Dose: 40 mg Documented By: JUVENTINO Senna (Sennosides 8.6 Mg Tablet) 17.2 mg PO BEDTIME [facility] Last Admin: 12/15/24 22:14 Dose: Not Given Documented By: JUVENTINO Non-Admin Reason: Patient Refused Sodium Chloride (0.9 % Sodium Chloride Flush 3 Ml Syringe) 3 ml IVFLUSH QSHIFT [facility] Last Admin: 12/16/24 08:28 Dose: 3 ml Documented By: DAYANA Labs 12/16/24 06:51 12/16/24 06:51 Labs: Laboratory Results - last 24 hr 12/15/24 12/16/24 12:32 06:51 MCV 74.4 L MCH 22.6 L MCHC 30.4 L RDW 19.9 H Plt Count 376 MPV 10.2 Immature Gran % (Auto) 0.3 Neut % (Auto) 66.8 Lymph % (Auto) 21.0 [place] % (Auto) 10.5 Eos % (Auto) 0.9 Baso % (Auto) 0.5 Lymph # (Auto) 1.4 [place] # (Auto) 0.7 Eos # (Auto) 0.1 Baso # (Auto) 0.0 Abs Immat Gran (auto) 0.02 Absolute Neuts (auto) 4.5 Absolute Nucleated RBC 0.000 Nucleated RBC % (auto) 0.0 O2 Saturation 88.0 ABG pH at Pt Temp 7.38 ABG pCO2 at Pt Temp 31 L ABG pO2 at Pt Temp 65 L ABG HCO3 19 L ABG Base Excess (Actual) -4.9 Anion Gap 13 Estim Creat Clear Calc 127.5 Estimated GFR > 60 Random Glucose 106 Calcium 8.4 Assessment and Plan (1) Cardiac arrhythmia: Status: Acute Plan 39F PMH presented with abd pain Acute cholecystitis and choledocholithiasis as well as gallstone pancreatitis Status post ERCP, on IV Zosyn, pain improved, s/pcholecystectomy 12/16/24 Bradycardia with Wenckebach Cardiology appreciated, monitor electrolytes, monitor tele - no further events Anemia Status post IV iron, monitor BhCG 4 unlikely DVT prophylaxis-mechanical due to surgery Full code reason for continued hospitalization:pain control Quality Stroke Does the patient have a stroke diagnosis?: No Reason for No Anti-thrombotic by Day Two: Contraindicated VTE Prior VTE?: No VTE Risk Level:: Medical - moderate - high VTE Device Contraindication: N/A - Device Ordered VTE Drug Contraindication: Treatment Not Indicated
--- NOTE | 2024-12-16 13:24 | PM.DS ---
DS: Providers Provider Date of Service: 12/16/24 Date of admission: 12/10/24 21:35 Date of discharge: 12/16/24 Primary care physician: None Physician Consults: 12/10/24 21:48 Consult to General Surgery Routine Consulting Provider: [facility] General Surgeons Reason for consultation: Cholelithiasis Has provider been notified: No 12/10/24 22:16 Consult to Gastroenterology Routine Consulting Provider: Angelita Obrien Reason for consultation: cholelithiasis, choledocholithiasis Has provider been notified: No 12/10/24 22:46 Consult to Case Management Routine Comment: Pt has no PCP, will need help with finding one if 12/13/24 16:51 Consult to Cardiology Routine Consulting Provider: [facility] Cardi[facility] Specialists Reason for consultation: bradycardia persistent /nsvt Has provider been notified: No DS: Diagnosis Discharge Diagnosis (1) Gallstone pancreatitis: Status: Acute DS: Summary Hospital Course Hospital Course: from initial hpi: 39-year-old female [place] speaking with past medical history only of G3, P3 X3 presents to the ED with complaints of upper Right and mid epigastric pain for the last 4 days. Pt has had nausea but no vomiting and denies Chest pain and SOB at rest or with exertion. Patient states she has had 2 prior attacks over the last month. Patient does not currently have a PCP. Patient denies history of tobacco use, marijuana use, illicit drug use and regular alcohol use. Patient only drinks alcohol occasionally. Workup initiated in the emergency department noted H&H of 8.3 and 27.6, no bandemia and no leukocytosis, non-anion gap metabolic acidosis, elevated T bili and direct bilirubin with transaminitis and elevated alk-phos of 271. Patient's lipase was 1088. Abdominal ultrasound indicated cholelithiasis with possible choledocholithiasis and multiple gallstones. No pancreatic involvement identified. ED provider reviewed case with General surgery and general surgery asked for medicine to admit. Patient is seen and examined for admission and patient is currently having 5 to 6/10 right upper quadrant and mid epigastric pain with mild nausea. Dilaudid ordered p.r.n. to help with pain. Zofran ordered to help with nausea. hospital course: Patient was admitted for acute cholecystitis include Dr. Murphy as well as gallstone pancreatitis. Was treated with IV fluids IV Zosyn, underwent ERCP with removal of stone and resolution of pancreatitis this was followed by cholecystectomy on 12/16/2024. Pain has improved patient tolerating solids. We will be discharged home she will follow up with surgery as outpatient. Course complicated by bradycardia with Wenckebach likely related to electrolyte abnormalities and resolved. For anemia was given IV iron should follow up outpatient for workup of iron-deficiency anemia. Time Attestation Discharge Coordination Time (in mins): 35 Quality: Safe Use of Opioids Does Pt have an Active Cancer Diagnosis on the Problem List?: No Quality: Stroke Does the patient have a stroke diagnosis?: No Physical Exam Vital Signs: Vital Signs: Last Vital Signs Temp 97.0 F 12/16/24 07:38 Pulse 57 12/16/24 07:38 Resp 16 12/16/24 07:38 BP 133/68 12/16/24 07:38 Pulse Ox 94 12/16/24 07:38 O2 Del Method Room Air 12/16/24 07:38 O2 Flow Rate 1 12/16/24 03:31 FiO2 97 12/15/24 13:31 BMI result Body Mass Index 33.7 Const: General: comfortable, no acute distress and alert Orientation/consciousness: patient oriented x3 Resp: Effort & Inspection: normal respiratory effort, able to speak in complete sentences and not tachypneic Auscultation: clear to auscultation bilaterally Cardio: Rate: regular rate Rhythm: regular rhythm GI: Other: abd soft dressings clean and intact mild incisional tenderness Percussion: Yes normal to percussion Skin: General skin exam: no rashes or lesions noted and no jaundice Neuro: General: patient oriented x3 and moves all extremities Extrem: Right lower extremity: no edema Left lower extremity: no edema DS: Data Data Completed and Pending Pending studies at discharge: Pending at discharge 12/15/24 11:04 Surgical [PTH] Routine Labs on day of discharge: Laboratory Results - last 24 hr 12/16/24 06:51 WBC 6.7 RBC 3.67 L Hgb 8.3 L Hct 27.3 L MCV 74.4 L MCH 22.6 L MCHC 30.4 L RDW 19.9 H Plt Count 376 MPV 10.2 Immature Gran % (Auto) 0.3 Neut % (Auto) 66.8 Lymph % (Auto) 21.0 [place] % (Auto) 10.5 Eos % (Auto) 0.9 Baso % (Auto) 0.5 Lymph # (Auto) 1.4 [place] # (Auto) 0.7 Eos # (Auto) 0.1 Baso # (Auto) 0.0 Abs Immat Gran (auto) 0.02 Absolute Neuts (auto) 4.5 Absolute Nucleated RBC 0.000 Nucleated RBC % (auto) 0.0 Sodium 140 Potassium 3.6 Chloride 108 Carbon Dioxide 23 Anion Gap 13 BUN 10 Creatinine 0.61 Estim Creat Clear Calc 127.5 Estimated GFR > 60 Random Glucose 106 Calcium 8.4 Discharge Plan Discharge Anticipated Discharge Date/Time: 12/16/24 13:22 Patient Disposition: Home, Self-Care Discharge Diagnosis: gallstone pancreatitis Referrals: Sean Ventura MD [Physician, General Surgery] - 1 Week Physician,Nathan [Primary Care Provider, Medical] - 1 Week Discharge Medications: New oxycodone 5 mg Tablet 5 mg PO Q6H PRN (Reason: Pain, Moderate(Pain Scale 4-6)) Qty: 10 0RF Rx Instructions: Partial Fill upon patient request. Discharge Orders: Discharge Order (Routine); Ordered 12/16/24 Ordered By: Von Aguilar Diet: Low fat, low cholesterol Activity on Discharge: As tolerated Stand Alone Forms: Patient Portal Discharge page Print Language: Malay Activity Restrictions/Additional Instructions: If the incision area is tender, you may apply an ice pack for short intervals (No more than 20 minutes on, followed by at least 20 minutes off). Do not apply heat. Do not use creams, lotions, or topical antibiotics. Ok to shower. Remove clear dressings 3 days following your procedure. You have steri strips (small white cloth strips) covering your incision- these will fall off ~1 week. No heavy lifting (>10lbs) or strenuous activity! Take Tylenol Extra-strength 1-2 tabs every 6 hours for the first day, then as needed. Oxycodone every 6-8 hours as needed for pain. Colace 100 mg every day as needed for constipation. Follow up in office with Dr. Ventura in 1 week. ([phone]) Call Your Doctor If: -Your temperature exceeds 101.5? F -You experience excessive pain or swelling -You have an unexpected reaction to medication -You have excessive bleeding -You experience continued vomiting/nausea -Your incision begins to separate -Your incision shows signs of infection such as increased redness, swelling, excessive pain, drainage (light blood or clear fluid is normal) or heat Care Plan Goals: recovery Health Concerns: gallstone pancreatitis Plan of Treatment: see above Assessment: see above
--- NOTE | 2024-12-16 13:36 | MHC.CM.PN ---
Pt has been medically cleared to [place], she will go home via private transport, plan is self care.
== END 2024-12-16 15:59 | disposition home or self-care (01) | DRG 263 ==
LOC: HO.ED 21:36 → HO.EDOVER 22:12 → HO.S3 12-11 07:40 → HO.IMC 12-13 17:00
PROVIDERS: Anesthesiology; Internal Medicine; Internal Medicine Gastroenterology; Nurse Practitioner Family; Physician Assistant Medical; Surgery; Admitting Provider Student in an Organized Health Care Education/Training Program; Emergency Provider Internal Medicine; Visit Provider Internal Medicine
PROC: 0F798ZZ Dilation of Common Bile Duct, Via Natural or Artificial Opening Endoscopic (ICD-10-PCS; CPT 43260; principal; 2024-12-14 16:00)
PROC: 0FT44ZZ Resection of Gallbladder, Percutaneous Endoscopic Approach (ICD-10-PCS; CPT 47562; principal; 2024-12-15 09:20)
DX: K80.62 Calculus of gallbladder and bile duct with acute cholecystitis without obstruction (principal); K85.10 Biliary acute pancreatitis without necrosis or infection; I47.10 Supraventricular tachycardia, unspecified; I44.1 Atrioventricular block, second degree; E83.42 Hypomagnesemia; D64.9 Anemia, unspecified; E87.6 Hypokalemia
CPT/HCPCS: 36415; 36600; 71045; 74181; 76705; 80048; 80053; 80061; 80076; 81001; 81025; 82272; 82803; 83002; 83540; 83605; 83615; 83690; 83735; 84132; 84443; 84484; 84702; 85025; 85027; 86850; 86900; 86901; 86923; 88304; 93005; 93306; 94660; 99285; C1748; J0131; J0665; J1100; J1171; J1610; J2003; J2250; J2405; J2470; J2543; J2704; J3010; J3475; J3480; J7120; P9016; P9047; Q9957; Q9967

== ENCOUNTER → 2024-12-10 17:35 | Outpatient (BNV) | payer MEDICAID, SELFPAY | PROVIDERS: Admitting Provider Student in an Organized Health Care Education/Training Program; Emergency Provider Internal Medicine; Visit Provider Internal Medicine | DX: R10.13 Epigastric pain (principal) | CPT/HCPCS: 93010 ==

== ENCOUNTER → 2024-12-10 19:20 | Outpatient (BNV) | payer MEDICAID, SELFPAY | PROVIDERS: Visit Provider Specialist | DX: K80.20 Calculus of gallbladder without cholecystitis without obstruction (principal) | CPT/HCPCS: 76705 ==

== ENCOUNTER 2024-12-10 21:35 | Outpatient (BNV) | payer MEDICAID, SELFPAY | END 2024-12-14 08:54 | PROVIDERS: Admitting Provider Student in an Organized Health Care Education/Training Program; Emergency Provider Internal Medicine; Visit Provider Internal Medicine Cardiovascular Disease | DX: I36.1 Nonrheumatic tricuspid (valve) insufficiency (principal); R00.1 Bradycardia, unspecified | CPT/HCPCS: 93010; 93306 ==

== ENCOUNTER 2024-12-10 21:35 | Outpatient (BNV) | payer MEDICAID, SELFPAY | END 2024-12-15 12:02 | PROVIDERS: Admitting Provider Student in an Organized Health Care Education/Training Program; Emergency Provider Internal Medicine; Visit Provider Radiology Diagnostic Radiology | DX: J98.4 Other disorders of lung (principal) | CPT/HCPCS: 71045 ==

== ENCOUNTER 2024-12-10 21:35 | Outpatient (BNV) | payer MEDICAID, SELFPAY | END 2024-12-11 15:58 | PROVIDERS: Admitting Provider Student in an Organized Health Care Education/Training Program; Emergency Provider Internal Medicine; Visit Provider Radiology Diagnostic Radiology | DX: K80.51 Calculus of bile duct without cholangitis or cholecystitis with obstruction (principal) | CPT/HCPCS: 74181 ==

== ENCOUNTER → 2024-12-10 21:35 | Outpatient (BNV) | payer MEDICAID, SELFPAY | PROVIDERS: Admitting Provider Student in an Organized Health Care Education/Training Program; Emergency Provider Internal Medicine; Visit Provider Physician Assistant Surgical | DX: K85.10 Biliary acute pancreatitis without necrosis or infection (principal) | CPT/HCPCS: 99222; 99232 ==

== ENCOUNTER → 2024-12-10 21:35 | Outpatient (BNV) | payer MEDICAID, SELFPAY | PROVIDERS: Admitting Provider Student in an Organized Health Care Education/Training Program; Emergency Provider Internal Medicine; Visit Provider Nurse Practitioner Family | DX: K80.51 Calculus of bile duct without cholangitis or cholecystitis with obstruction (principal); R74.01 Elevation of levels of liver transaminase levels | CPT/HCPCS: 99223; 99231; 99232 ==

== ENCOUNTER → 2024-12-10 21:35 | Outpatient (BNV) | payer MEDICAID, SELFPAY | PROVIDERS: Admitting Provider Student in an Organized Health Care Education/Training Program; Emergency Provider Internal Medicine; Visit Provider Internal Medicine Cardiovascular Disease | DX: I49.9 Cardiac arrhythmia, unspecified (principal) | CPT/HCPCS: 99222 ==

== ENCOUNTER → 2024-12-10 21:35 | Outpatient (BNV) | payer MEDICAID, SELFPAY | PROVIDERS: Admitting Provider Student in an Organized Health Care Education/Training Program; Emergency Provider Internal Medicine; Visit Provider Internal Medicine Gastroenterology | DX: K85.10 Biliary acute pancreatitis without necrosis or infection (principal) | CPT/HCPCS: 99223 ==

== ENCOUNTER 2024-12-24 10:43 | Outpatient (AMB) | payer MEDICAID, SELFPAY ==
--- NOTE | 2024-12-24 10:44 | MHC.OFFVIS ---
Vital Signs 12/24/24 10:50 Height 5 ft 3 in Weight 183 lb 4 oz BMI 32.5 BP 125/71 Blood Pressure Location Lt brachial Position Sitting Pulse 89 Intake Visit Reasons: s/p lap con Intake Note: Patient is seen in office for post op assessment post laparoscopic cholecystectomy. Pt c/o: denies any concerns Chief Optometry Service Required: No Accompanied by: Self / Same As Patient Allergies No Known Allergies Allergy (Verified 12/24/24 10:49) Medication List - Last Reconciled 12/24/24 by Sean Ventura MD No Known Home Meds HPI Comments Details: 39-year-old female patient status post laparoscopic cholecystectomy for acute cholecystitis, cholelithiasis and choledocholithiasis performed on 12/15/2024. She previously underwent ERCP with removal of 2 common bile duct stones. Operative findings were consistent with acute cholecystitis due to cholelithiasis. Postoperatively she required CPAP in the PACU for short period of time but by postoperative day 1 was feeling much improved and tolerating regular diet. She was subsequently discharged home on 12/16/2024. Since discharge she reports feeling well with no significant abdominal pain, nausea, vomiting, or difficulty with the bowels. [facility] Medical History Obesity Surgical History Hx laparoscopic cholecystectomy (12/15/24) History of Social History Patient Tobacco Use Status: Never used Tobacco service: No Physical Exam Const General: no acute distress Nutritional Appearance: well nourished Orientation/consciousness: patient oriented x3 Eyes Sclerae: sclerae normal GI Other: Soft, nondistended, nontender, well-healed trocar incisions without evidence of hernia or infection. Neuro General: patient oriented x3 Extrem Other: No edema Assessment & Plan Assessment & Plan (1) Cholelithiasis: Code(s): K80.20 - Calculus of gallbladder without cholecystitis without obstruction Category: Medical Qualifiers: Cholelithiasis location: bile duct Cholecystitis presence: without cholecystitis Biliary obstruction: with biliary obstruction Qualified Code(s): K80.51 - Calculus of bile duct without cholangitis or cholecystitis with obstruction (2) Gallstone pancreatitis: Code(s): K85.10 - Biliary acute pancreatitis without necrosis or infection Category: Medical Plan Patient returns 1 week following laparoscopic cholecystectomy for acute cholecystitis, cholelithiasis, choledocholithiasis. She tolerated the procedure well and her wounds are healing nicely. She should continue to avoid lifting greater than 10 lb until 01/05/2025 at which point she may return to work. She should follow up as needed. Medications: Discontinued oxycodone Partial Fill upon patient request. Discontinued Reason: Patient Completed Course 5 mg PO Q6H PRN 10 tabs 0RF Pain, Moderate(Pain Scale 4-6) Coding Level of Care Code Global (00037) Diagnoses Calculus of bile duct without cholecystitis with obstruction K80.51 Cholelithiasis location: bile duct Cholecystitis presence: without cholecystitis Biliary obstruction: with biliary obstruction Gallstone pancreatitis K85.10
[2024-12-24 10:50] VITALS: BP 125/71; PULSE 89; BMI 32.5
--- OUTSIDE RECORDS SUMMARY | 2024-12-24 11:24 | XMS_ITS | Clinical Summary ---
Author Organization Patient Business [facility] Address [address] [place] [address] Care Team Providers Care Automation Tester Name Role Phone Unavailable Primary Care Provider Unavailabl e Surgical History Surgery Date Site/Laterality Comments SECTION PROCEDURE: HISTORICAL DELIVERY; COMMENT: x2 Medical History Medical History Date Comments Gestational diabetes DX:Gestatio nal diabetes; COMMENT: 2nd - metformin Family History Medical History Relation Name Comments No Known Problems Brother 1 No Known Problems Brother 2 No Known Problems Brother 3 No Known Problems Father Heart attack Maternal Grandfather Diabetes Maternal Grandmother pills Asthma Mother Depression Mother No Known Problems Paternal Grandfather No Known Problems Paternal Grandmother No Known Problems Sister No Known Problems Son 1 Justin Reardon No Known Problems Son 2 Getachew Reardon Breast cancer Neg Hx Cervical cancer Neg Hx Colon cancer Neg Hx Ovarian cancer Neg Hx Pancreatic cancer Neg Hx Prostate cancer Neg Hx Uterine cancer Neg Hx Relation Name Status Comments Brother 1 Alive Brother 2 Alive Brother 3 Alive Father Alive Maternal Grandfather Maternal Grandmother Alive Mother Alive Paternal Grandfather Alive Paternal Grandmother Alive Sister Alive Son 1 Justin Reardon Alive 02/14/20 17 Son 2 Getachew Reardon Alive 10/20/07 Social History Tobacco Use Types Packs/Day Years Used Date Smoking Tobacco: Never Smokeless Tobacco: Never Alcohol Use Standard Drinks/Week Comments Never 0 (1 standard drink = 0.6 oz pur e alcohol) Comments Unknown Sex and Gender Information Value Date Recorded Sex Assigned at Not on file Legal Sex Female 3:26 PM EDT Gender Identity Not on file Sexual Orientation Not on file Obstetrics History Last Filed Vital Signs Vital Sign Reading Time Taken Comments Blood Pressure 110/70 12/31/2022 9:40 AM EDT Pulse 77 12/31/2022 9:40 AM EDT Temperature - - Respiratory Rate - - Oxygen Saturation - - Inhaled Oxygen Concentration - - Weight 87.2 kg (192 lb 3.2 oz) 12/31/2022 9:40 A M EDT Height 162.6 cm (5' 4 ) 12/31/2022 9:40 AM EDT Body Mass Index 32.99 12/31/2022 9:40 AM EDT Plan of Treatment Health Maintenance Due Date Last Done Comments Breast Cancer Screening 1984 DTaP,Tdap,and Td Vaccines (1 - Tdap) 2003 Hepatitis B Vaccines (1 of 3 - 19+ 3-dose series) 2003 Cervical Cancer Screening: P ap Smear 2005 Depression Screening 02/21/2022 HIV Screening 02/21/2022 Hepatitis C Screening 02/21/2022 Social Influencers of Health Screening 02/21/2022 COVID-19 Vaccine ( - 2023-2 5 season) 2024 Influenza Vaccine (#1) 2025 HIB Vaccines Aged Out No longer eligi ble based on patient's age to complete this topic HPV Vaccines Aged Out No longer eligi ble based on patient's age to complete this topic Hepatitis A Vaccines Aged Out No long er eligible based on patient's age to complete this topic IPV Vaccines Aged Out No longer eligi ble based on patient's age to complete this topic MMR Vaccines Aged Out No longer eligi ble based on patient's age to complete this topic Meningococcal ACWY Vaccine Aged Out N o longer eligible based on patient's age to complete this topic Meningococcal B Vaccine Aged Out No l onger eligible based on patient's age to complete this topic Pneumococcal Vaccine: Pediat rics (0 to 5 Years) and At-Risk Patients (6 to 49 Years) Aged Out No longer eligible b ased on patient's age to complete this topic RSV Immunization Patients Un darell 20 months Aged Out No longer eligible b ased on patient's age to complete this topic Varicella Vaccines Aged Out No longer eligible based on patient's age to complete this topic
== END 2024-12-24 11:24 | disposition home or self-care (01) ==
LOC: HO.HGS 10:44
PROVIDERS: Visit Provider Surgery
DX: K80.51 Calculus of bile duct without cholangitis or cholecystitis with obstruction (principal); K85.10 Biliary acute pancreatitis without necrosis or infection
CPT/HCPCS: 99024

== ENCOUNTER → 2024-12-24 10:43 | Outpatient (BNVA) | payer MEDICAID, SELFPAY | PROVIDERS: Visit Provider Surgery | DX: K80.51 Calculus of bile duct without cholangitis or cholecystitis with obstruction (principal); K85.10 Biliary acute pancreatitis without necrosis or infection | CPT/HCPCS: 99212 ==

== ENCOUNTER → 2025-02-01 13:21 | Outpatient (REF) | payer MEDICAID, SELFPAY ==
--- NOTE | 2025-02-01 13:35 | HM_ITS ---
* Total monitoring time 2 days. * Underlying rhythm is sinus with an average rate of 88/Min. * Rare supraventricular ectopy. * Rare ventricular ectopy. * No significant pauses or high-grade AV blocks. * No patient markers or diary events. MTDD
--- OUTSIDE RECORDS SUMMARY | 2025-02-01 14:12 | XMS_ITS | Clinical Summary ---
Author Organization [employer] Address [address] [facility] [address] [place] [address] Care Team Providers Care Retail Merchandising Specialist Name Role Phone Unavailable Primary Care Provider Unavailabl e Encounters Date Type Department Care Team Description 01/05/2025 Population Health Risk Score [facility] ([facility] Department [address] [address] Provider, Population Health Generic from Last 3 Months Social History Tobacco Use Types Packs/Day Years Used Date Smoking Tobacco: Never Assessed Comments Unknown Sex and Gender Information Value Date Recorded Sex Assigned at Not on file Legal Sex Female 9:21 PM EDT Gender Identity Not on file Sexual Orientation Not on file Plan of Treatment Health Maintenance Due Date Last Done Comments Depression Screening 1984 HIV Screening 1984 SDOH Screening 1984 Disability Screening 1984 Alcohol/Substance Use Screening 1996 Tobacco Screening 1996 Family Planning (PISQ) 1999 HPV Vaccines (1 - 3-dose series) 1999 Hepatitis C Screening 2002 DTaP/Tdap/Td Vaccines (1 - Tdap) 2003 Hepatitis B Vaccines (1 of 3 - 19+ 3-dose series) 2003 Pap Smear 2005 Cervical Cancer Screening 2014 HPV/Cotest 2014 COVID-19 Vaccine (1 - 2023-2 5 season) 2024 Mammogram 2024 Influenza Vaccine (#1) 2025 Zoster Vaccines (1 of 2) 2034 RSV Patients and Pa tients Aged 60 years or older (1 - 1-dose 75+ series) 2059 HIB Vaccines Aged Out No longer eligi [...] patient's age to complete this topic Meningococcal Vaccine Aged Out No juan sanjiv eligible based on patient's age to complete this topic Pneumococcal Vaccine: Pediat rics (0 to 5 Years) and At-Risk Patients (6 to 49) Years Aged Out No longer eligible b ased on patient's age to complete this topic RSV under 20 months Aged Out No longe r eligible based on patient's age to complete this topic Rotavirus Vaccines Aged Out No longer eligible based on patient's age to complete this topic
--- OUTSIDE RECORDS SUMMARY | 2025-02-01 14:12 | XMS_ITS | Clinical Summary ---
Author Organization Patient Business [facility] Address [address] [place] [address] Care Team Providers Care Blood Bank Coordinator Name Role Phone Unavailable Primary Care Provider [...] Cervical Cancer Screening: P ap Smear 2005 HIV Screening 02/21/2022 Hepatitis C Screening 02/21/2022 Social Influencers of Health Screening 02/21/2022 COVID-19 Vaccine ( - 2023-2 5 season) 2024 Depression Screening 06/17/2024 Influenza Vaccine (#1) 2025 HIB Vaccines Aged [...]
== END ==
LOC: HO.CARD 13:21
PROVIDERS: Visit Provider Internal Medicine Cardiovascular Disease
DX: I49.9 Cardiac arrhythmia, unspecified (principal)
CPT/HCPCS: 93225

== ENCOUNTER → 2025-02-01 13:35 | Outpatient (BNV) | payer MEDICAID, SELFPAY | PROVIDERS: Visit Provider Internal Medicine | DX: I47.10 Supraventricular tachycardia, unspecified (principal) | CPT/HCPCS: 93227 ==